=== PATIENT | female | born 1950 | race Caucasian/White ===

== ENCOUNTER 2018-02-24 19:14 | Emergency (ER) | payer MEDICARE, BC ==
[2018-02-24 19:25] VITALS: BP 145/70
[2018-02-24] MEDS ORDERED: Sodium Chloride 0.9% 10 ML Syringe FLUSH PRN (19:46)
[2018-02-24] MEDS ORDERED: Morphine 4 MG/ML Syringe IVPUSH ONE (19:47)
--- NOTE | 2018-02-24 19:53 | EDM.PDOC ---
ED HPI GENERAL MEDICAL PROBLEM - General Chief Complaint: Genitourinary Problem Stated Complaint: BLOOD IN URINE Time Seen by Provider: 02/24/18 19:15 Source of Information: Reports: Patient History Limitations: Reports: No Limitations - History of Present Illness INITIAL COMMENTS - FREE TEXT/NARRATIVE: Patient is a 68-year-old female presents to emergency department with gross hematuria and clots. Patient states that over the years she had been diagnosed with bladder cancer and has had 2 bladder scrapings which revealed noninvasive bladder CA. She had another scraping which revealed invasive bladder CA. She has been asymptomatic until today suddenly she began to have severe pain with urination it was bloody and passing large clots she said the size of her thumb. She is having a lot of bladder spasms as well. No fevers chills nausea vomiting diarrhea chest pain shortness of breath no blood from the vagina and no bloody stools. Patient denies being on any type of anticoagulants no aspirin or Plavix to Coumadin. She states she has been taken off all of those types of meds secondary to having a biopsy scheduled for next week. Onset: Sudden Duration: Day(s): (1) Location: Reports: Abdomen Quality: Reports: Other (spasm) Severity: Severe Improves with: Reports: None Worsens with: Reports: Other (urination) Associated Symptoms: Reports: No Other Symptoms urinary/inner pelvic Pain Score (Numeric/FACES): 6 - Related Data Allergies Allergy/AdvReac Type Severity Reaction Status Date / Time No Known Allergies Allergy Verified 02/24/18 19:25 Home Meds: Home Meds Biotin 1 mg PO DAILY 12/11/15 [History] Cholecalciferol (Vitamin D3) [Vitamin D] 1,000 unit PO DAILY 12/11/15 [History] Lutein/Minerals/Vit A,C & E [Ocuvite] 1 tab PO DAILY 12/11/15 [History] Multivitamins [Tab-A-Nickie] 1 tab PO DAILY 12/11/15 [History] Anastrozole [Arimidex] 1 mg PO DAILY 02/24/18 [History] Ciprofloxacin HCl [Cipro] 500 mg PO Q12HR #20 tablet 02/24/18 [Rx] oxyCODONE HCl/Acetaminophen [Percocet 7.5-325 mg Tablet] 1 each PO Q6HR #12 tablet 02/25/18 [Rx] Past Medical History HEENT History: Reports: Impaired Vision 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 History: Reports: Endometriosis Oncologic (Cancer) History: Reports: Bladder - Past Surgical History Female Surgical History: Reports: Breast Implant, Section, Hysterectomy, Other (See Below) Other Female Surgeries/Procedures: bladder surgery for Neurological Surgical History: Reports: Discectomy Musculoskeletal Surgical History: Reports: Knee Replacement Social & Family History - Tobacco Use Smoking Status *Q: Never Smoker - Caffeine Use Caffeine Use: Reports: Coffee - Recreational Drug Use Recreational Drug Use: No ED ROS GENERAL - Review of Systems Review Of Systems: See Below Constitutional: Reports: No Symptoms HEENT: Reports: No Symptoms Respiratory: Reports: No Symptoms Cardiovascular: Reports: No Symptoms Endocrine: Reports: No Symptoms GI/Abdominal: Reports: Abdominal Pain, Distension. Denies: Black Stool, Bloody Stool, Constipation, Diarrhea, Hematemesis, Hematochezia, Melena, Nausea, Vomiting : Reports: Dysuria, Frequency, Hematuria, Pain, Urgency, Urinary Retention Musculoskeletal: Reports: No Symptoms Skin: Reports: No Symptoms Neurological: Reports: Syncope Psychiatric: Reports: No Symptoms Hematologic/Lymphatic: Reports: No Symptoms Immunologic: Reports: No Symptoms ED EXAM, RENAL/ - Physical Exam Exam: See Below Exam Limited By: No Limitations General Appearance: Alert, WD/WN, Anxious, Moderate Distress Course - Vital Signs Last Recorded V/S: Last Vital Signs Temp 98.2 F 02/24/18 19:18 Pulse 75 02/24/18 19:18 Resp 18 02/24/18 19:18 BP 145/70 H 02/24/18 19:18 Pulse Ox 98 02/24/18 19:18 - Orders/Labs/Meds Orders: Active Orders 24 hr Category Date Time Status Abdomen Pelvis wo Cont [CT] Stat Exams 02/24/18 22:37 Taken Retroperitoneal Comp [US] Stat Exams 02/24/18 19:45 Taken Sodium Chloride 0.9% [Saline Flush] Med 02/24/18 19:46 Active 10 ml FLUSH ASDIRECTED PRN Saline Lock Insert [OM.PC] Routine Oth 02/24/18 19:46 Ordered Medication Orders Sodium Chloride (Saline Flush) 10 ml FLUSH ASDIRECTED PRN PRN Reason: Keep Vein Open Last Admin: 02/24/18 20:12 Dose: 10 ml Labs: Laboratory Tests 02/24/18 02/24/18 02/24/18 Range/Units 19:50 19:56 19:56 WBC 9.62 (3.98-10.04) K/mm3 RBC 3.26 L (3.98-5.22) M/mm3 Hgb 10.0 L (11.2-15.7) gm/L Hct 30.2 L (34.1-44.9) % MCV 92.6 (79.4-94.8) fl MCH 30.7 (25.6-32.2) pg MCHC 33.1 (32.2-35.5) g/dl RDW Std Deviation 44.5 (36.4-46.3) fL Plt Count 333 (182-369) K/mm3 MPV 10.4 (9.4-12.3) fl Neut % (Auto) 72.1 H (34.0-71.1) % Lymph % (Auto) 17.7 L (19.3-51.7) % Drew % (Auto) 8.7 (4.7-12.5) % Eos % (Auto) 1.0 (0.7-5.8) Baso % (Auto) 0.2 (0.1-1.2) % Neut # (Auto) 6.93 H (1.56-6.13) K/mm3 Lymph # (Auto) 1.70 (1.18-3.74) K/mm3 Drew # (Auto) 0.84 H (0.24-0.36) K/mm3 Eos # (Auto) 0.10 (0.04-0.36) K/mm3 Baso # (Auto) 0.02 (0.01-0.08) K/mm3 PT 10.5 (9.5-12.1) SECONDS INR 0.96 Sodium 137 (136-145) mEq/L Potassium 3.8 (3.5-5.1) mEq/L Chloride 102 (98-107) mEq/L Carbon Dioxide 25 (21-32) mEq/L Anion Gap 13.8 (5-15) BUN 15 (7-18) mg/dL Creatinine 0.9 (0.55-1.02) mg/dL Est Cr Clr Drug Dosing 44.17 mL/min Estimated GFR (MDRD) > 60 (>60) mL/min BUN/Creatinine Ratio 16.7 (14-18) Glucose 105 (80-115) mg/dL Calcium 8.2 L (8.5-10.1) mg/dL Total Bilirubin 0.3 (0.2-1.0) mg/dL AST 19 (15-37) U/L ALT 24 (14-59) U/L Alkaline Phosphatase 34 L (46-116) U/L Total Protein 7.1 (6.4-8.2) g/dl Albumin 3.6 (3.4-5.0) g/dl Globulin 3.5 gm/dL Albumin/Globulin Ratio 1.0 (1-2) Urine Color (Yellow) Urine Appearance (Clear) Urine pH (5.0-8.0) Ur Specific Froid (1.005-1.030) Urine Protein (Negative) Urine Glucose (UA) (Negative) Urine Ketones (Negative) Urine Occult Blood (Negative) Urine Nitrite (Negative) Urine Bilirubin (Negative) Urine Urobilinogen (0.2-1.0) Ur Leukocyte Esterase (Negative) Urine RBC (0-5) /hpf Urine WBC (0-5) /hpf Ur Epithelial Cells (0-5) /hpf Amorphous Sediment (NOT SEEN) /hpf Urine Bacteria (FEW) /hpf Urine Mucus (FEW) /hpf / Range/Units 20:18 WBC (3.98-10.04) K/mm3 RBC (3.98-5.22) M/mm3 Hgb (11.2-15.7) gm/L Hct (34.1-44.9) % MCV (79.4-94.8) fl MCH (25.6-32.2) pg MCHC (32.2-35.5) g/dl RDW Std Deviation (36.4-46.3) fL Plt Count (182-369) K/mm3 MPV (9.4-12.3) fl Neut % (Auto) (34.0-71.1) % Lymph % (Auto) (19.3-51.7) % Drew % (Auto) (4.7-12.5) % Eos % (Auto) (0.7-5.8) Baso % (Auto) (0.1-1.2) % Neut # (Auto) (1.56-6.13) K/mm3 Lymph # (Auto) (1.18-3.74) K/mm3 Drew # (Auto) (0.24-0.36) K/mm3 Eos # (Auto) (0.04-0.36) K/mm3 Baso # (Auto) (0.01-0.08) K/mm3 PT (9.5-12.1) SECONDS INR Sodium (136-145) mEq/L Potassium (3.5-5.1) mEq/L Chloride (98-107) mEq/L Carbon Dioxide (21-32) mEq/L Anion Gap (5-15) BUN (7-18) mg/dL Creatinine (0.55-1.02) mg/dL Est Cr Clr Drug Dosing mL/min Estimated GFR (MDRD) (>60) mL/min BUN/Creatinine Ratio (14-18) Glucose (80-115) mg/dL Calcium (8.5-10.1) mg/dL Total Bilirubin (0.2-1.0) mg/dL AST (15-37) U/L ALT (14-59) U/L Alkaline Phosphatase (46-116) U/L Total Protein (6.4-8.2) g/dl Albumin (3.4-5.0) g/dl Globulin gm/dL Albumin/Globulin Ratio (1-2) Urine Color Red H (Yellow) Urine Appearance Cloudy H (Clear) Urine pH 6.0 (5.0-8.0) Ur Specific Froid 1.015 (1.005-1.030) Urine Protein 3+ H (Negative) Urine Glucose (UA) Negative (Negative) Urine Ketones 1+ H (Negative) Urine Occult Blood 3+ H (Negative) Urine Nitrite Positive H (Negative) Urine Bilirubin 3+ H (Negative) Urine Urobilinogen 1.0 (0.2-1.0) Ur Leukocyte Esterase 3+ H (Negative) Urine RBC >100 H (0-5) /hpf Urine WBC >100 H (0-5) /hpf Ur Epithelial Cells 10-20 H (0-5) /hpf Amorphous Sediment Few H (NOT SEEN) /hpf Urine Bacteria Many H (FEW) /hpf Urine Mucus Few (FEW) /hpf Meds: Medications Generic Name Dose Route Start Last Admin Trade Name Freq PRN Reason Stop Dose Admin Sodium Chloride 10 ml 02/24/18 19:46 02/24/18 20:12 Saline Flush FLUSH 10 ml ASDIRECTED PRN Administration Keep Vein Open Discontinued Medications Generic Name Dose Route Start Last Admin Trade Name Ira PRN Reason Stop Dose Admin Hydromorphone HCl 1 mg 02/24/18 20:07 02/24/18 20:11 Dilaudid IVPUSH 02/24/18 20:08 1 mg ONETIME ONE Administration Hydromorphone HCl 0.5 mg 02/24/18 22:55 02/24/18 23:02 Dilaudid IVPUSH 02/24/18 22:56 0.5 mg ONETIME ONE Administration Hydromorphone HCl 0.5 mg 02/24/18 23:17 02/24/18 23:20 Dilaudid IVPUSH 02/24/18 23:18 0.5 mg ONETIME ONE Administration Ceftriaxone Sodium 1 gm/ 100 mls @ 200 mls/hr 02/24/18 21:06 02/24/18 21:30 Sodium Chloride IV 02/24/18 21:35 Not Given ONETIME ONE Ceftriaxone Sodium 1 gm/ 100 mls @ 200 mls/hr 02/24/18 21:22 02/24/18 21:27 Sodium Chloride IV 02/24/18 21:51 200 mls/hr ONETIME ONE Administration Sodium Chloride 1,000 mls @ 1,000 mls/hr 02/24/18 22:54 02/24/18 23:01 Normal Saline IV 02/24/18 23:53 1,000 mls/hr ONETIME ONE Administration Morphine Sulfate 4 mg 02/24/18 19:47 02/24/18 20:07 Morphine IVPUSH 02/24/18 19:48 Not Given ONETIME ONE - Re-Assessments/Exams Free Text/Narrative Re-Assessment/Exam: 02/24/18 23:17 At 28/08/15 I discussed the care of this patient in great detail with Dr. Billy Hicks who was covering for Dr. Posada, urological specialist in [place]. We discussed laboratory studies and ultrasound. Dr. Mccarty was in agreement with the current treatment plan of antibiotics and fluids. He requests that the patient call the office and speak with Dr. the RN and she will arrange for the patient to have expedited follow-up in the office. As will not be in the office tomorrow but he will return next week. The radiologist , called from the red to discuss this patient's ultrasound results. She verified that on the anterior bladder wall there appeared to be a collection of tissue that could represent a mass. Debris in the posterior bladder suggesting hemorrhage. Small postvoid residual in the bladder. While in the stones were identified in this ultrasound she suggested a CAT scan to further evaluate that type of finding. In my discussions with the patient regarding her hematuria and treating her with the cold water irrigation of the bladder via a catheter patient refused. We have discussed it multiple times and she states she cannot tolerate having a catheter placed in her bladder. I also discussed that with Dr. Billy Mccarty the urologist so they are aware. Currently the patient's hemoglobin is 10 and her platelets, and coagulation studies are within normal limits. [id number] we are waiting patient's CTT scan. Departure - Departure Time of Disposition: 00:22 Disposition: Home, Self-Care 01 Condition: Good Clinical Impression: UTI, Urinary tract infectious disease, Hematuria syndrome - Discharge Information *PRESCRIPTION DRUG MONITORING PROGRAM REVIEWED*: Not Applicable *COPY OF PRESCRIPTION DRUG MONITORING REPORT IN PATIENT TARA: Not Applicable Prescriptions: Ciprofloxacin HCl [Cipro] 500 mg PO Q12HR #20 tablet Instructions: Urinary Tract Infection, Adult, [id number], Hematuria, Adult Referrals: PCP,Not In Area [Primary Care Provider] - 1 Day (Call Loretta COLLINS,at Dr. Posada' s office, tomorrow for follow up. ) Forms: ED Department Discharge Additional Instructions: Call Dr. Posada's office tomorrow and speak with Loretta for follow up appt. Drink as much fluid as you can tolerate, in order to help flush out the bladder and keep clots from enlarging; Take antibiotics as prescribed, Cipro. Take pain meds as needed. - My Orders Last 24 Hours: My Active Orders 02/24/18 19:45 Retroperitoneal Comp [US] Stat 02/24/18 19:46 Sodium Chloride 0.9% [Saline Flush] 10 ml FLUSH ASDIRECTED PRN Saline Lock Insert [OM.PC] Routine 02/24/18 22:37 Abdomen Pelvis wo Cont [CT] Stat - Assessment/Plan Last 24 Hours: My Active Orders 02/24/18 19:45 Retroperitoneal Comp [US] Stat 02/24/18 19:46 Sodium Chloride 0.9% [Saline Flush] 10 ml FLUSH ASDIRECTED PRN Saline Lock Insert [OM.PC] Routine 02/24/18 22:37 Abdomen Pelvis wo Cont [CT] Stat
[2018-02-24] MEDS ORDERED: HYDROmorphone 0.5 MG/0.5 ML SYRINGE IVPUSH ONE ×3 (20:07→23:17)
[2018-02-24] MEDS ORDERED: cefTRIAXone 1 GM in Sodium Chloride 0.9% 100 ML IV ONE ×2 (21:06→21:22)
[2018-02-24] MEDS ORDERED: Sodium Chloride 0.9% 1,000 ML IV ONE (22:54)
[2018-02-24] MEDS ORDERED: Aspirin 81 MG Tab.Chew PO ONE (22:57)
[2018-02-24] MEDS ORDERED: Nitroglycerin 0.4 MG Tab.SL SL PRN (22:58)
--- NOTE | 2018-02-25 09:59 | US ---
Renal ultrasound: Multiple real-time images of the kidneys were obtained. Comparison: No prior renal ultrasound exam. Findings: Bladder appears abnormal. Hypoechoic area identified within the anterior bladder measuring about 3.1 cm. This could represent a bladder mass. There is material within the bladder lumen suggesting the possibility of blood clot. Kidneys show no hydronephrosis or mass. Right and left kidneys show mildly elevated resistivity indices. Right kidney length is 10.4 cm and left kidney length is also 10.4 cm. Prevoid volume within the bladder is 261 mL and postvoid volume is 11.0 mL. Impression: 1. Small bladder mass anteriorly. Cystoscopy recommended as transitional cell carcinoma is a possibility. 2. Debris within the bladder most likely due to blood clot. 3. Small post void residual within the bladder. 4. Mildly elevated resistivity indices within both kidneys compatible with an element of medical renal disease. Diagnostic code #9 I agree with preliminary report issued by [facility] ([facility] report finalized on 02/24/18, 11:37 PM Central Time)
--- NOTE | 2018-02-25 09:59 | CT ---
CT abdomen and pelvis Technique: Multiple axial sections were obtained from above the dome of the diaphragm inferiorly to the pubic symphysis. Intravenous and oral contrast was not utilized. Study has been performed as a ureteral stone protocol. Comparison: Previous CT abdomen and pelvis exam exam of 07/07/17. Findings: Retroperitoneal adenopathy is seen mostly to the left side of the aorta. Adenopathy continues into the iliac chain. Bladder wall is thickened anteriorly felt to correlate to the mass seen on ultrasound exam. There is hazy density outside the anterior bladder wall may represent local invasion of tumor. Visualized lung bases show nothing acute. Small hiatal hernia is noted. Liver has an unremarkable noncontrast appearance. Gallbladder contains no calcified gallstones. Pancreas is within normal limits. Kidneys show no abnormal calcifications. No ureteral dilatation or ureteral stone is seen. Aorta shows no aneurysmal dilatation. Appendix not visualized with certainty. Bone window settings were reviewed which show scattered degenerative change within the spine. Impression: 1. Bladder wall thickening most prominent anteriorly correlating to mass on ultrasound. Findings are suspicious for transitional cell carcinoma. Slight haziness along the anterior bladder wall is seen possibly due to local invasion of tumor. Differential also includes prominent cystitis. Cystoscopy recommended to further evaluate. 2. Adenopathy within the retroperitoneum extending into the left iliac chain suspicious for metastatic disease. This is an interval change from previous exam. 3. Other incidental findings as noted above. Diagnostic code #9 I agree with preliminary report issued by [facility] ([facility] report finalized on 02/25/18, 1:01 AM Central Time)
== END 2018-02-25 00:45 | disposition home or self-care (01) ==
LOC: JD.ED 19:14
DX: N39.0 Urinary tract infection, site not specified (principal); Z79.899 Other long term (current) drug therapy
CPT/HCPCS: 36415; 74176; 76770; 80053; 81001; 85025; 85610; 96361; 96365; 96375; 96376; 99284; J0696; J1170; J7030; J7040; J7050

== ENCOUNTER 2020-06-07 15:56 | Inpatient (IN) | payer MEDICARE, BC ==
--- NOTE | 2020-06-07 16:58 | EDM.PDOC ---
ED HPI GENERAL MEDICAL PROBLEM - General Chief Complaint: General Stated Complaint: PAIN FROM CANCER Time Seen by Provider: 06/07/20 16:57 Source of Information: Reports: Patient History Limitations: Reports: No Limitations - History of Present Illness INITIAL COMMENTS - FREE TEXT/NARRATIVE: 70-year-old female presents to the ED with diffuse severe lower abdominal pain. Patient was at the infusion clinic at [facility] today and did receive IV fluids through her Port-A-Cath left upper anterior chest. Is felt to be dehydrated clinically. She arrives in the ED with her Port-A-Cath still accessed. She had 2 mg of Dilaudid orally this afternoon and did receive another 0.5 mg IV prior to coming to the ED. She is also on a fentanyl patch 12 mcg/h and currently has 2 patches on. Early 1 was placed yesterday and a second 1 was placed today. Prior to her gallbladder surgery she was on 25 mcg/day. Patient has a history of urinary bladder cancer. This was initially diagnosed in 2016 and treated with 2 courses of 6 weeks each of BCG intravesical treatments. Subsequently identified to have carcinoma extruding through the bladder wall and offered treatment of totals cystectomy and ileoconduit formation with ureterostomy but she elected not to proceed with the surgery. She has been receiving chemotherapy through oncology services for her bladder cancer. It of course has been stopped recently in the month of May due to need for surgery and now discovery of malignant tumor within the bladder. She was recently diagnosed with colon cancer--sounds like malignant polyp excision at time of colonoscopy May 11, 2020. She is also had laparoscopic cholecystectomy 2019- 7 days ago. All of the surgeries were carried out in [place] at [facility]. She admits that her bowel movement has been very poor and she thinks has been at least 3 days since she has had a satisfactory bowel movement. She believes she is still passing flatus. She does feel mildly distended. Pain is constant but does have a strong colicky component radiating from right to left across the lower abdomen. Associated nausea without vomiting. Very poor oral intake over the last 3 days. Feels generally weak. Not lightheaded or dizzy. Onset: Today Onset Date: 06/07/20 Duration: Hour(s):, Getting Worse Location: Reports: Abdomen (He was constant lower abdominal pain rating from right to left across the lower abdomen with a strong colicky component. Pain is constant and rated as 7-8 out of 10. Currently unrelieved by fentanyl patches 12 mcg x 2 --unclear when the last one was placed. Diffuse primarily lower abdominal pain radiating right to left.) Quality: Reports: Other Severity: Severe (Is a constant pain in her abdomen and intermittently worse due to intestinal colic) Improves with: Reports: None ( rates as 8-9 out of 10.) Worsens with: Reports: None Context: Denies: Activity, Exercise, Lifting, Sick Contact, Trauma, Other Associated Symptoms: Reports: Cough, cough w sputum, Loss of Appetite, Malaise, Nausea/Vomiting, Shortness of Breath, Weakness (Nausea without vomiting), Other (Constipation. ). 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 (see below) (And apparently had oral Dilaudid 2 mg tablet given sometime this afternoon and I believe 0.5 mg IV prior to coming to the ED from the infusion clinic.) Middle Abdomen Pain Score (Numeric/FACES): 10 - Related Data Allergies Allergy/AdvReac Type Severity Reaction Status Date / Time morphine Allergy Other Verified 06/07/20 16:38 oxycodone Allergy Vomiting Verified 06/07/20 16:38 tramadol Allergy Cannot Verified 06/07/20 16:38 Remember Home Meds: Home Meds Anastrozole [Arimidex] 1 mg PO DAILY 02/24/18 [History] Apixaban [Eliquis] 5 mg PO BID 06/07/20 [History] Cyclobenzaprine [Flexeril] 10 mg PO TID PRN 06/07/20 [History] HYDROmorphone [Dilaudid] 2 mg PO Q6H PRN 06/07/20 [History] Hydrocodone/Acetaminophen [Hydrocodone-Acetamin 5-325 mg] 2 each PO Q4HR PRN 06/07/20 [History] Losartan [Cozaar] 50 mg PO DAILY 06/07/20 [History] Omeprazole 20 mg PO DAILY 06/07/20 [History] Sucralfate 1 gm PO QID 06/07/20 [History] fentaNYL [Duragesic] 12 mcg TD Q72H 06/07/20 [History] Past Medical History HEENT History: Reports: Impaired Vision 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 Identified to have initially left-sided bladder involvement and then completed 6 weeks of BCG treatment and repeat cystoscopy revealed that the development of bladder cancer on the right side and received another 6 weeks of BCG treatment intravascularly. Subsequently notified to have bladder wall invasion and extrusion of tumor outside the bladder wall. She elected not to undergo complete cystectomy and ileal conduit formation.), Breast (Right breast cancer diagnosed in 2015. She is currently into her fourth year of Arimidex treatment. It is proposed to continue this medication until November 2020. Lymph node biopsy done on the right side was negative making her a stage 1 cancer.), Colon - Past Surgical History Female Surgical History: Reports: Breast Implant, Section, Hysterectomy Neurological Surgical History: Reports: Discectomy Musculoskeletal Surgical History: Reports: Knee Replacement Social & Family History - Tobacco Use Tobacco Use Status *Q: Never Tobacco User - Caffeine Use Caffeine Use: Reports: Coffee - Living Situation & Occupation Living situation: Reports: Occupation: Retired [employer] [facility] - Review of Systems Review Of Systems: See Below Constitutional: Reports: Malaise, Weakness, Fatigue, Decreased Appetite, Weight Loss. Denies: Fever, Chills HEENT: Reports: Glasses Respiratory: Reports: Shortness of Breath, Cough. Denies: Wheezing, Sputum, Hemoptysis, Other Cardiovascular: Reports: Blood Pressure Problem, Dyspnea on Exertion, Edema (Occasional edema at the ankles better lately.). 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 She had laparoscopic cholecystectomy May 31 ice 7 days ago.). Denies: Difficulty Swallowing (History of present illness.), Distension, Flatus, Hematemesis, Hematochezia, Melena, Mucous in Stool, Stool Incontinence : Reports: Frequency, Other (Patient states she no longer gets the urge to void. She has to sit on the toilet and wait for the bladder to start to drain on its own. She reports bladder flow is slow. This is since BCG treatments were done intravascularly for transitional cell carcinoma of the bladder.) Musculoskeletal: Reports: Back Pain (Low back pain due to degenerative change) Skin: Reports: Dryness Neurological: Reports: Weakness. Denies: Confusion, Dizziness, Headache, Numbn ess, Syncope, Tingling, Difficulty Walking Psychiatric: Reports: No Symptoms Hematologic/Lymphatic: Reports: No Symptoms Immunologic: Reports: No Symptoms ED EXAM, GENERAL - Physical Exam Exam: See Below Exam Limited By: No Limitations General Appearance: Alert, WD/WN, Moderate Distress, Other (And is in significant discomfort at the time of my initial assessment. Temperature was 36.5 heart rate was 86 respiratory 20-24 with O2 sats of 99% room air BP elevated 190/86.) Eye Exam: Bilateral Eye: Normal Inspection (She does have mild lateral pallor), PERRL ( bilaterally. No scleral icterus.) Throat/Mouth: Other Head: Atraumatic (Is moderately dry and coated.), Normocephalic Neck: Normal Inspection, Supple, Non-Tender, Full Range of Motion. No: Lymphadenopathy (L), Lymphadenopathy (R) Respiratory/Chest: Respiratory Distress (Tachypnea at rest with maintained O2 sats.), Decreased Breath Sounds, Wheezing (Splinting respirations unable to take a deep breath. Decreased air into the lower 40% lung baca bilaterally.). No: Stridor, Pleural Rub ( Occasional expiratory wheeze.), Accessory Muscle Use Cardiovascular: Regular Rate, Rhythm, No Edema, No Gallop, No Murmur, No Rub Peripheral Pulses: 2+: Carotid (L), Carotid (R), Posterior Tibial (L), Posterior Tibial (R), Dorsalis Pedis (L), Dorsalis Pedis (R) GI/Abdominal: Non-Tender, No Organomegaly, Distended ( throughout all 4 quadrants. Abdomen is mildly distended and diffusely tympany to percussion.), Tender (Is mostly across the lower abdomen worse I believe on the left lower quadrant.), Abnormal Bowel Sounds (Sounds are fairly high-pitched), Other (There is no localized abdominal tenderness to suggest peritonitis at this time.). No: Guarding, Rigid, Rebound Back Exam: Normal Inspection, Full Range of Motion. No: CVA Tenderness (R) Extremities: Normal Inspection, Normal Range of Motion, Non-Tender, No Pedal Edema Neurological: Alert, Oriented, CN II-XII Intact, Normal Cognition Psychiatric: Normal Affect, Normal Mood Skin Exam: Warm, Dry, Intact, Normal Color, No Rash Course - Vital Signs Last Recorded V/S: Last Vital Signs Temp 36.5 C 06/07/20 16:21 Pulse 86 06/07/20 16:21 Resp 20 06/07/20 16:21 BP 190/86 H 06/07/20 16:21 Pulse Ox 99 06/07/20 16:21 - Orders/Labs/Meds Orders: Active Orders 24 hr Category Date Time Status Admission Status [Patient Status] [ADT] Routine ADT 06/07/20 20:16 Active Abdomen 1V Flat [CR] Stat Exams 06/07/20 17:07 Taken Abdomen Pelvis w Cont [CT] Stat Exams 06/07/20 18:24 Taken Chest 1V Frontal [CR] Stat Exams 06/07/20 17:07 Taken Dextrose 5%-Lactated Ringers 1,000 ml Med 06/07/20 20:15 Active IV ASDIRECTED fentaNYL [Duragesic] Med 06/07/20 19:45 Active 25 mcg TRDERM Q72H Medication Orders Fentanyl (Duragesic) 25 mcg TRDERM Q72H JEMMA Last Admin: 06/07/20 20:00 Dose: 25 mcg Documented by: HERMMIC Dextrose/Lactated Ringer's (Dextrose 5%-Lactated Ringers) 1,000 mls @ 100 mls/hr IV ASDIRECTED [facility] Labs: Laboratory Tests 06/07/20 06/07/20 06/07/20 Range/Units 17:25 17:25 17:25 WBC 7.80 (3.98-10.04) K/mm3 RBC 3.22 L (3.98-5.22) M/mm3 Hgb 9.6 L (11.2-15.7) gm/dl Hct 29.4 L (34.1-44.9) % MCV 91.3 (79.4-94.8) fl MCH 29.8 (25.6-32.2) pg MCHC 32.7 (32.2-35.5) g/dl RDW Std Deviation 51.9 H (36.4-46.3) fL Plt Count 494 H D (182-369) K/mm3 MPV 9.8 (9.4-12.3) fl Neutrophils % (Manual) 85 H (40-60) % Band Neutrophils % 0 (0-10) % Lymphocytes % (Manual) 8 L (20-40) % Atypical Lymphs % 0 % Monocytes % (Manual) 7 (2-10) % Eosinophils % (Manual) 0 L (0.7-5.8) % Basophils % (Manual) 0 L (0.1-1.2) Platelet Estimate Increased Plt Morphology Comment Normal Hypochromasia 1+ slight RBC Morph Comment Abnormal ESR 37 H (0-20) mm/hr PT (9.7-12.0) SECONDS INR APTT (21.7-31.4) SECONDS Sodium 134 L (136-145) mEq/L Potassium 3.4 L (3.5-5.1) mEq/L Chloride 97 L (98-107) mEq/L Carbon Dioxide 26 (21-32) mEq/L Anion Gap 14.4 (5-15) BUN 9 (7-18) mg/dL Creatinine 0.9 (0.55-1.02) mg/dL Est Cr Clr Drug Dosing 45.14 mL/min Estimated GFR (MDRD) > 60 (>60) mL/min BUN/Creatinine Ratio 10.0 L (14-18) Glucose 112 (80-115) mg/dL Calcium 8.5 (8.5-10.1) mg/dL Magnesium 2.0 (1.8-2.4) mg/dl Total Bilirubin 0.5 (0.2-1.0) mg/dL GGT (5-55) U/L AST 23 (15-37) U/L ALT 24 (14-59) U/L Alkaline Phosphatase 145 H (46-116) U/L C-Reactive Protein 2.0 H* (<1.0) mg/dL NT-Pro-B Natriuret Pep (0-125) pg/mL Total Protein 6.5 (6.4-8.2) g/dl Albumin 2.6 L (3.4-5.0) g/dl Globulin 3.9 gm/dL Albumin/Globulin Ratio 0.7 L (1-2) Lipase (73-393) U/L Urine Color (Yellow) Urine Appearance (Clear) Urine pH (5.0-8.0) Ur Specific Lincoln (1.005-1.030) Urine Protein (Negative) Urine Glucose (UA) (Negative) Urine Ketones (Negative) Urine Occult Blood (Negative) Urine Nitrite (Negative) Urine Bilirubin (Negative) Urine Urobilinogen (0.2-1.0) Ur Leukocyte Esterase (Negative) Urine RBC (0-5) /hpf Urine WBC (0-5) /hpf Ur Squamous Epith Cells (0-5) /hpf Urine Bacteria (FEW) /hpf Urine Mucus (FEW) /hpf SARS-CoV-2 RNA (CHOCO) (NEGATIVE) 06/07/20 06/07/20 06/07/20 Range/Units 17:25 17:25 17:25 WBC (3.98-10.04) K/mm3 RBC (3.98-5.22) M/mm3 Hgb (11.2-15.7) gm/dl Hct (34.1-44.9) % MCV (79.4-94.8) fl MCH (25.6-32.2) pg MCHC (32.2-35.5) g/dl RDW Std Deviation (36.4-46.3) fL Plt Count (182-369) K/mm3 MPV (9.4-12.3) fl Neutrophils % (Manual) (40-60) % Band Neutrophils % (0-10) % Lymphocytes % (Manual) (20-40) % Atypical Lymphs % % Monocytes % (Manual) (2-10) % Eosinophils % (Manual) (0.7-5.8) % Basophils % (Manual) (0.1-1.2) Platelet Estimate Plt Morphology Comment Hypochromasia RBC Morph Comment ESR (0-20) mm/hr PT 12.2 H (9.7-12.0) SECONDS INR 1.14 APTT 37.7 H (21.7-31.4) SECONDS Sodium (136-145) mEq/L Potassium (3.5-5.1) mEq/L Chloride (98-107) mEq/L Carbon Dioxide (21-32) mEq/L Anion Gap (5-15) BUN (7-18) mg/dL Creatinine (0.55-1.02) mg/dL Est Cr Clr Drug Dosing mL/min Estimated GFR (MDRD) (>60) mL/min BUN/Creatinine Ratio (14-18) Glucose (80-115) mg/dL Calcium (8.5-10.1) mg/dL Magnesium (1.8-2.4) mg/dl Total Bilirubin (0.2-1.0) mg/dL GGT 150 H (5-55) U/L AST (15-37) U/L ALT (14-59) U/L Alkaline Phosphatase (46-116) U/L C-Reactive Protein (<1.0) mg/dL NT-Pro-B Natriuret Pep 808 H (0-125) pg/mL Total Protein (6.4-8.2) g/dl Albumin (3.4-5.0) g/dl Globulin gm/dL Albumin/Globulin Ratio (1-2) Lipase (73-393) U/L Urine Color (Yellow) Urine Appearance (Clear) Urine pH (5.0-8.0) Ur Specific [place] (1.005-1.030) Urine Protein (Negative) Urine Glucose (UA) (Negative) Urine Ketones (Negative) Urine Occult Blood (Negative) Urine Nitrite (Negative) Urine Bilirubin (Negative) Urine Urobilinogen (0.2-1.0) Ur Leukocyte Esterase (Negative) Urine RBC (0-5) /hpf Urine WBC (0-5) /hpf Ur Squamous Epith Cells (0-5) /hpf Urine Bacteria (FEW) /hpf Urine Mucus (FEW) /hpf SARS-CoV-2 RNA (CHOCO) (NEGATIVE) 06/07/20 06/07/20 06/07/20 Range/Units 17:25 17:27 17:30 WBC (3.98-10.04) K/mm3 RBC (3.98-5.22) M/mm3 Hgb (11.2-15.7) gm/dl Hct (34.1-44.9) % MCV (79.4-94.8) fl MCH (25.6-32.2) pg MCHC (32.2-35.5) g/dl RDW Std Deviation (36.4-46.3) fL Plt Count (182-369) K/mm3 MPV (9.4-12.3) fl Neutrophils % (Manual) (40-60) % Band Neutrophils % (0-10) % Lymphocytes % (Manual) (20-40) % Atypical Lymphs % % Monocytes % (Manual) (2-10) % Eosinophils % (Manual) (0.7-5.8) % Basophils % (Manual) (0.1-1.2) Platelet Estimate Plt Morphology Comment Hypochromasia RBC Morph Comment ESR (0-20) mm/hr PT (9.7-12.0) SECONDS INR APTT (21.7-31.4) SECONDS Sodium (136-145) mEq/L Potassium (3.5-5.1) mEq/L Chloride (98-107) mEq/L Carbon Dioxide (21-32) mEq/L Anion Gap (5-15) BUN (7-18) mg/dL Creatinine (0.55-1.02) mg/dL Est Cr Clr Drug Dosing mL/min Estimated GFR (MDRD) (>60) mL/min BUN/Creatinine Ratio (14-18) Glucose (80-115) mg/dL Calcium (8.5-10.1) mg/dL Magnesium (1.8-2.4) mg/dl Total Bilirubin (0.2-1.0) mg/dL GGT (5-55) U/L AST (15-37) U/L ALT (14-59) U/L Alkaline Phosphatase (46-116) U/L C-Reactive Protein (<1.0) mg/dL NT-Pro-B Natriuret Pep (0-125) pg/mL Total Protein (6.4-8.2) g/dl Albumin (3.4-5.0) g/dl Globulin gm/dL Albumin/Globulin Ratio (1-2) Lipase 488 H (73-393) U/L Urine Color Light yellow (Yellow) Urine Appearance Clear (Clear) Urine pH 7.5 (5.0-8.0) Ur Specific Lincoln 1.020 (1.005-1.030) Urine Protein Negative (Negative) Urine Glucose (UA) Negative (Negative) Urine Ketones Trace H (Negative) Urine Occult Blood 3+ H (Negative) Urine Nitrite Negative (Negative) Urine Bilirubin Negative (Negative) Urine Urobilinogen 0.2 (0.2-1.0) Ur Leukocyte Esterase 2+ H (Negative) Urine RBC 10-20 H (0-5) /hpf Urine WBC 0-5 (0-5) /hpf Ur Squamous Epith Cells 0-5 (0-5) /hpf Urine Bacteria Few (FEW) /hpf Urine Mucus Not seen (FEW) /hpf SARS-CoV-2 RNA (CHOCO) Negative (NEGATIVE) Meds: Medications Generic Name Dose Route Start Last Admin Trade Name Freq PRN Reason Stop Dose Admin Fentanyl 25 mcg 06/07/20 19:45 06/07/20 20:00 Duragesic TRDERM 25 mcg Q72H JEMMA Administration Dextrose/Lactated Ringer's 1,000 mls @ 100 mls/hr 06/07/20 20:15 Dextrose 5%-Lactated Ringers IV ASDIRECTED JEMMA Discontinued Medications Generic Name Dose Route Start Last Admin Trade Name Freq PRN Reason Stop Dose Admin Hydromorphone HCl 1 mg 06/07/20 17:05 06/07/20 17:14 Dilaudid IVPUSH 06/07/20 17:06 1 mg ONETIME ONE Administration Hydromorphone HCl 1 mg 06/07/20 19:44 06/07/20 20:01 Dilaudid IVPUSH 06/07/20 19:45 1 mg ONETIME ONE Administration Dextrose/Lactated Ringer's 1,000 mls @ 150 mls/hr 06/07/20 17:15 06/07/20 17:14 Dextrose 5%-Lactated Ringers IV 150 mls/hr ASDIRECTED JEMMA Administration Iopamidol 100 ml 06/07/20 18:55 06/07/20 19:57 Isovue-300 (61%) IVPUSH 06/07/20 18:56 100 ml ONETIME ONE Administration Metoclopramide HCl 5 mg 06/07/20 17:05 06/07/20 17:14 Reglan IVPUSH 06/07/20 17:06 5 mg ONETIME ONE Administration Sodium Chloride 10 ml 06/07/20 18:55 06/07/20 19:57 Saline Flush FLUSH 06/07/20 18:56 10 ml ONETIME ONE Administration - Radiology Interpretation Free Text/Narrative:: C10-year-old female presents to the ED in severe pain across her lower abdomen. Patient was at the infusion clinic at [facility] this afternoon for IV fluids due to dehydration. Patient is now 7 days post laparoscopic cholecystectomy. She has a history of multiple cancers involving right breast in 2016 considered to be stage I with negative lymph node biopsy on the right axilla. Developed transitional cell carcinoma urinary bladder in 2017 and apparently has become very extensive recently with involvement of tumor outside the urinary bladder. Initially treated with BCG treatments x2 intravesically but identified to have extrusion of tumor outside the urinary bladder and opted not to pursue total cystectomy. She has a pigtail stent in her left ureter which is going to be changed yearly. This was placed she believes in February of this year. Most recently May 11 she had a colonoscopy which identified a malignant polyp within her left colon. She is expected to need require chemotherapy for this in the near future. She believes she has not had a decent bowel movement for at least 3 days. Her oral intake has been poor. No relief with oral Dilaudid tab. She is also on fentanyl patches 12 mcg/h and currently has [address] 1 placed yesterday and 1 this morning. Previous to her cholecystectomy she was on 25 mcg of fentanyl per hour with good pain control. When she will require intravenous fluids. We will access her left-sided Port-A-Cath. She will be given Dilaudid 1 mg IV and Reglan 5 mg IV for nausea relief. - Re-Assessments/Exams Free Text/Narrative Re-Assessment/Exam: 06/07/20 18:15 Hemoglobin white blood cell count is 7.80 differential pending. Hemoglobin is low at 9.6 with hematocrit of 29.4. Platelet count is elevated at 494,000. PT is 12.2 with an INR of 1.14 i.e. mildly auto anticoagulated. PTT is elevated at 37.7. This is concerning for possible liver involvement in her cancers. Sodium is 134 with a potassium of 3.4. Chloride 97 with a bicarb of 26. Anion gap is 14.4. BUN is 9 with a creatinine of 0.9 with a GFR greater than 60. Glucose is 112 calcium 8.5 magnesium 2.0. Total bilirubin 0.5. GGT is elevated at 150 AST is 23 with an ALT of 24 and a slightly elevated alk phosphatase at 145. Again these changes are worrisome for metastatic cancer to the liver. BNP is elevated at 808. Total protein 6.5 with an albumin fraction low at 2.6. Urinalysis returned as trace of ketones with 3+ occult blood and 2+ leukocyte Estrace with 10-20 RBCs per high-power field no white cells and few bacteria appreciated. Patient is much more comfortable at this time. She still has some diffuse lower abdominal pain but grades as is 1-2 out of 10. She is now able to carry on a conversation. She remains very thirsty. She is drinking water with no issues. She has burping and belching some when I am in the exam room. Chest x-ray reveals a left-sided Port-A-Cath in place. Atelectatic changes noted within both lung bases. Pleural space appears unremarkable with no pleural effusion or pneumothorax. There is mild bibasilar atelectasis. There is a mild nonspecific elevation of the left hemidiaphragm. Surgical clips appreciated right axilla--from previous lymph node biopsy which proved negative for right-sided breast cancer. The x-ray of the abdomen shows that there is still fluid within the pelvis. There is no significant constipation. Mild stool in the colon. There is increased air throughout the colon down to the rectal vault with no signs of obstruction. There are no air-fluid levels. There is phleboliths in the pelvis. The lumbar spine demonstrates mild to moderate degenerative changes at multiple levels. We will therefore go onto CT of the abdomen with IV contrast. 06/07/20 19:00: COVID-19 screen is negative. 06/07/20 19:48 She had the abdomen pelvis with IV contrast has been completed. Visualized portions of the lower thorax reveal cardiomegaly. No pleural effusion . She has a mild hiatal hernia. There is increased air in the colon under the left hemidiaphragm. CT of the abdomen reveals ascites fluid around the liver and spleen and also fluid throughout the lower abdomen. On firm discussion with the patient she indicates that she has had paracentesis in the past due to accumulation of large amount of fluid in her abdomen. She reports this was greater than 6 to 8 months ago. The liver appears to show evidence of fatty infiltration. [place] present from recent cholecystectomy. There appears to be some fluid around the pancreas. Definitive evidence of pancreatitis. Patient has a left pigtail stent in the left ureter. It enters the urinary bladder. There is evidence of tumor along the left side of the urinary bladder posterior laterally. The bladder is otherwise distended with no sign of perforation. There is a large amount of air distending the entire colon. There are few mildly dilated loops of distal small bowel without evidence of obstruction. No significant splenomegaly. There is thickening of the lara of the descending colon consistent with mild colitis evaluation of the bowel is limited due to lack of contrast. There is no evidence of appendicitis. There is a small amount of free intraperitoneal fluid present as mentioned above. Vasculature appears unremarkable with no abdominal aortic aneurysm. There is evidence of mesenteric lymphadenopathy measuring up to 1.3 cm. Mild retroperitoneal lymphadenopathy. The lumbar spine demonstrates mild degenerative changes at multiple levels. Soft tissue edematous changes noted bilaterally. Pain is coming back. She will have repeat Dilaudid 1 mg IV. She is going to require hospitalization by [facility] for pain management at this time. The exact cause of her current pain syndrome is unclear. I would suggest that she needs a stool collected for C. difficile as there is some evidence of inflammation of the left hemicolon. It is likely that she received postoperative antibiotic prior to her cholecystectomy a week ago. She gives no history of diarrhea in fact she has had little to no stool production for the last 3 days. I will discuss case with on-call hospitalist Dr. Coles with a view to her coming into the hospital. She previously was on fentanyl 25 mcg/h patches and her oncologist recently reduced him to 12 mcg/h. At this time the 12 mcg/h does not seem to be holding her. I am going to replace these 2 patches with a 25 mcg/h patch. Free Text/Narrative Re-Assessment/Exam: 06/07/20 20:03 I have spoken with Dr. Fay- air control electronics operator hospitalist with view to bring her into the hospital primarily for pain management. The cause of her recurrent lower abdominal pain is a bit unclear at this point time. It appears to be intestinal --colic-like pain. Is have mild ascites in the abdomen with evidence of mesenteric lymphadenopathy and retroperitoneal adenopathy on CT scan suggestive of diffuse malignancy likely from the urinary bladder. Mesenteric invasion with cancer could be the cause of her ascites as well. I am hopeful that she might be able to fall asleep for a period of time and help pass some of the gas out of her colon. The CT reveals thickening of portions of the descending colon but clinically she does not have signs or symptoms of a significant inflammatory process or colitis. She has no blood per rectum and is passing flatus. There is diffuse mild ascites in the abdomen. She has a pigtail stent in her left ureter. There is evidence of tumor along the left uri nary bladder wall without evidence of urinary bladder perforation. The bladder is distended fairly well on CT exam and the patient has voided 3 times since she has been here without any worsening or improvement of her lower abdominal pain. CT did not reveal any signs of a perforated viscus. There is mild amount of stool throughout the colon and the patient may benefit from bowel cleanse. I have changed her fentanyl to 25 mcg/h patches with removal of the 12 mcg/h patches that she has in place at the time she arrived in the ED. This is in the hopes of providing a steady state of fentanyl and control of her current pain syndrome. She likely require intermittent doses of Dilaudid for pain relief. Of note patient was at the infusion clinic receiving IV fluids prior to coming to the ED. Her BNP is mildly elevated at 880 and she is at risk of becoming volume overloaded. Current IV will be decreased to D5 Ringer's lactate at 100 mils per hour. Lipase is mildly elevated at 455? Mild pancreatitis. Post op cholecystectomy x 7 days. Departure - Departure Time of Disposition: 20:11 Disposition: Admitted As Inpatient 68 Condition: Poor Clinical Impression: Bilateral lower abdominal pain, Mesenteric lymphadenopathy, Mild congestive h eart failure Ascites Qualifiers: Ascites type: malignant Qualified Code(s): R18.0 - Malignant ascites Malignant neoplasm of urinary bladder Qualifiers: Bladder location: trigone Qualified Code(s): C67.0 - Malignant neoplasm of trigone of bladder - Discharge Information *PRESCRIPTION DRUG MONITORING PROGRAM REVIEWED*: Not Applicable *COPY OF PRESCRIPTION DRUG MONITORING REPORT IN PATIENT TARA: Not Applicable Referrals: Zac Villatoro MD [Primary Care Provider] - Forms: ED Department Discharge Sepsis Event Note (ED) - Evaluation Sepsis Screening Result: No Definite Risk - Focused Exam Vital Signs: Vital Signs Temp Pulse Resp BP Pulse Ox 06/07/20 16:21 36.5 C 86 20 190/86 H 99 - My Orders Last 24 Hours: My Active Orders 06/07/20 17:07 Abdomen 1V Flat [CR] Stat Chest 1V Frontal [CR] Stat 06/07/20 18:24 Abdomen Pelvis w Cont [CT] Stat 06/07/20 19:45 fentaNYL [Duragesic] 25 mcg TRDERM Q72H 06/07/20 20:15 Dextrose 5%-Lactated Ringers 1,000 ml IV ASDIRECTED 06/07/20 20:16 Admission Status [Patient Status] [ADT] Routine - Assessment/Plan Last 24 Hours: My Active Orders 06/07/20 17:07 Abdomen 1V Flat [CR] Stat Chest 1V Frontal [CR] Stat 06/07/20 18:24 Abdomen Pelvis w Cont [CT] Stat 06/07/20 19:45 fentaNYL [Duragesic] 25 mcg TRDERM Q72H 06/07/20 20:15 Dextrose 5%-Lactated Ringers 1,000 ml IV ASDIRECTED 06/07/20 20:16 Admission Status [Patient Status] [ADT] Routine
[2020-06-07] MEDS ORDERED: HYDROmorphone 1 MG/ML Syringe IVPUSH ONE ×2 (17:05→19:44)
[2020-06-07] MEDS ORDERED: Metoclopramide 10 MG/2 ML SDV IVPUSH ONE (17:05)
[2020-06-07] MEDS ORDERED: Dextrose 5%-Lactated Ringers 1,000 ML IV SCH (17:15)
[2020-06-07] MEDS ORDERED: Iopamidol 612 MG/ML 100 ML Bottle IVPUSH ONE (18:55)
[2020-06-07] MEDS ORDERED: Sodium Chloride 0.9% 10 ML Syringe FLUSH ONE (18:55)
[2020-06-07] MEDS ORDERED: fentaNYL 25 MCG/HR Transdermal Patch TRDERM SCH (19:45)
[2020-06-07] MEDS ORDERED: FLU Vacc QV2020-21(65YR UP)/PF 240 MCG/0.7 ML Syringe IM ONE (21:30)
[2020-06-07] MEDS ORDERED: Acetaminophen 325 MG Tab PO PRN (21:59)
[2020-06-07] MEDS: HYDROmorphone 1 MG/ML Syringe IVPUSH PRN (22:10)
--- NOTE | 2020-06-07 22:22 | PCM.HP.2 ---
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 Patient states she is still having flatus. She states that she has poor appetite over the last several days and a significant weight loss. Patient is currently on fentanyl 25 mcg/h patch that with increased 2 months ago from the 12.5. Patient had to 12.5 patches left and put those on after discharge from the hospital last week. Patient had a right hemicolectomy with ileocolic anastomosis on 05/10/2020, cystoscopy with stent on 05/28, cholecystectomy on 05/31/2020. Patient also had portal vein thrombosis on 02/06/2020. Acute blood loss anemia on 05/15/2020 and last reported hemoglobin of 9.0. Thrombocytosis which appears to be an acute phase reactant based on her notes from Dr. Joe Luevano MD. She did have a paracentesis last week. In the emergency department she had a white count of 7.8, hemoglobin 9.6, platelet count of 494. Sodium slightly decreased at 134, potassium of 3.4 CT of the abdomen showed left ureteral stent in place, mild thickening of the wall of the bladder present, thickening of the wall of the descending colon consistent with mild colitis, mesenteric lymphadenopathy, retroperitoneal lymphadenopathy, small amount of free intraperitoneal fluid present. Chest x- ray showed atelectatic change within the lung bases. X-ray did demonstrate stool noted throughout the colon with a nonobstructive and nonspecific bowel gas pattern. Patient was given Dilaudid with good pain relief, switch to just 1 patch of fentanyl 25 mcg and admitted for rehydration and pain control. Middle Abdomen Pain Score (Numeric/FACES): 5 - Related Data Allergies/Adverse Reactions: Allergies Allergy/AdvReac Type Severity Reaction Status Date / Time morphine Allergy Other Verified 06/07/20 16:38 tramadol Allergy Cannot Verified 06/07/20 16:38 Remember oxycodone AdvReac Drowsiness Verified 06/07/20 21:34 Home Medications: Home Meds Anastrozole [Arimidex] 1 mg PO DAILY 02/24/18 [History] Apixaban [Eliquis] 5 mg PO BID 06/07/20 [History] Cyclobenzaprine [Flexeril] 10 mg PO TID PRN 06/07/20 [History] Docusate Sodium [Stool Softener] 100 mg PO BID 06/07/20 [History] Losartan [Cozaar] 50 mg PO BID 06/07/20 [History] Omeprazole 20 mg PO DAILY 06/07/20 [History] Sucralfate 1 gm PO QID 06/07/20 [History] fentaNYL [Duragesic] 25 mcg TD Q72H 06/07/20 [History] polyethylene glycoL 3350 [MiraLAX] 17 gm PO DAILY 06/07/20 [History] Past Medical History HEENT History: Reports: Impaired Vision Other HEENT History: Wear glasses Gastrointestinal History: Reports: Chronic Constipation [employer] History: Reports: 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 Neurological Surgical History: Reports: Discectomy Musculoskeletal Surgical History: Reports: Knee Replacement Other Musculoskeletal Surgeries/Procedures:: shoulder spurs removed to left shoulder. Right elbow surgery. left knee replaced. Neck surgery - spur near spinal cord. Removed 5th toes to bilateral feet (hammer toes) Social & Family History - Tobacco Use Tobacco Use Status *Q: Never Tobacco User Second Hand Smoke Exposure: No - Caffeine Use Caffeine Use: Reports: None - Recreational Drug Use Recreational Drug Use: No - Living Situation & Occupation Living situation: Reports: Occupation: Retired H&P Review of Systems - Review of Systems: Review Of Systems: Comprehensive ROS is negative, except as noted in HPI. General: Reports: Malaise, Weakness, Fatigue, Decreased Appetite, Weight Loss. Denies: Fever, Chills HEENT: Reports: Glasses Pulmonary: Reports: Shortness of Breath, Cough. Denies: Sputum, Hemoptysis Cardiovascular: Reports: Dyspnea on Exertion. Denies: Chest Pain Gastrointestinal: Reports: Abdominal Pain, Anorexia, Constipation, Flatus, Nausea. Denies: Black Stool, Bloody Stool, Hematemesis Genitourinary: Reports: Frequency Musculoskeletal: Reports: Back Pain, Muscle Pain Skin: Reports: Dryness. Denies: Diaphoresis Psychiatric: Reports: No Symptoms Neurological: Reports: No Symptoms Hematologic/Lymphatic: Reports: No Symptoms Immunologic: Reports: No Symptoms Exam - Exam Exam: See Below - Vital Signs Vital Signs: Last Vital Signs Temp 98.1 F 06/07/20 20:58 Pulse 94 06/07/20 20:58 Resp 18 06/07/20 20:58 BP 155/95 H 06/07/20 20:58 Pulse Ox 96 06/07/20 20:58 Weight: 54.023 kg - Exam Quality Assessment: No: Supplemental Oxygen General: Alert, Oriented, 4 HEENT: Conjunctiva Clear, Hearing Intact, Mucosa Moist & [place], Pupils Equal Neck: Supple, Trachea Midline, 2 Lungs: Normal Respiratory Effort, Rales (Mild bibasilar) Cardiovascular: Regular Rate, Regular Rhythm. No: Rubs GI/Abdominal Exam: Normal Bowel Sounds, Soft, No Organomegaly, No Abnormal Bruit, Pelvis Stable, Distended, Tender (Diffusely tender). No: Guarding, Rigid, Rebound Back Exam: Normal Inspection Extremities: Normal Inspection, Normal Range of Motion, Non-Tender, No Pedal Edema, Normal Capillary Refill Peripheral Pulses: 2+: Posterior Tibial (L), Posterior Tibial (R), Dorsalis Pedis (L), Dorsalis Pedis (R) Neurological: Cranial Nerves Intact Neuro Extensive - Mental Status: Alert, Oriented x3, Normal Mood/Affect, Normal Cognition Psychiatric: Alert, Depressed - Patient Data Lab Results Last 24 hrs: Laboratory Results - last 24 hr 06/07/20 06/07/20 06/07/20 Range/Units 17:25 17:25 17:25 WBC 7.80 (3.98-10.04) K/mm3 RBC 3.22 L (3.98-5.22) M/mm3 Hgb 9.6 L (11.2-15.7) gm/dl Hct 29.4 L (34.1-44.9) % MCV 91.3 (79.4-94.8) fl MCH 29.8 (25.6-32.2) pg MCHC 32.7 (32.2-35.5) g/dl RDW Std Deviation 51.9 H (36.4-46.3) fL Plt Count 494 H D (182-369) K/mm3 MPV 9.8 (9.4-12.3) fl Neutrophils % (Manual) 85 H (40-60) % Band Neutrophils % 0 (0-10) % Lymphocytes % (Manual) 8 L (20-40) % Atypical Lymphs % 0 % Monocytes % (Manual) 7 (2-10) % Eosinophils % (Manual) 0 L (0.7-5.8) % Basophils % (Manual) 0 L (0.1-1.2) Platelet Estimate Increased Plt Morphology Comment Normal Hypochromasia 1+ slight RBC Morph Comment Abnormal ESR 37 H (0-20) mm/hr PT (9.7-12.0) SECONDS INR APTT (21.7-31.4) SECONDS Sodium 134 L (136-145) mEq/L Potassium 3.4 L (3.5-5.1) mEq/L Chloride 97 L (98-107) mEq/L Carbon Dioxide 26 (21-32) mEq/L Anion Gap 14.4 (5-15) BUN 9 (7-18) mg/dL Creatinine 0.9 (0.55-1.02) mg/dL Est Cr Clr Drug Dosing 45.14 mL/min Estimated GFR (MDRD) > 60 (>60) mL/min BUN/Creatinine Ratio 10.0 L (14-18) Glucose 112 (80-115) mg/dL Calcium 8.5 (8.5-10.1) mg/dL Magnesium 2.0 (1.8-2.4) mg/dl Total Bilirubin 0.5 (0.2-1.0) mg/dL GGT (5-55) U/L AST 23 (15-37) U/L ALT 24 (14-59) U/L Alkaline Phosphatase 145 H (46-116) U/L C-Reactive Protein 2.0 H* (<1.0) mg/dL NT-Pro-B Natriuret Pep (0-125) pg/mL Total Protein 6.5 (6.4-8.2) g/dl Albumin 2.6 L (3.4-5.0) g/dl Globulin 3.9 gm/dL Albumin/Globulin Ratio 0.7 L (1-2) Lipase (73-393) U/L Urine Color (Yellow) Urine Appearance (Clear) Urine pH (5.0-8.0) Ur Specific [place] (1.005-1.030) Urine Protein (Negative) Urine Glucose (UA) (Negative) Urine Ketones (Negative) Urine Occult Blood (Negative) Urine Nitrite (Negative) Urine Bilirubin (Negative) Urine Urobilinogen (0.2-1.0) Ur Leukocyte Esterase (Negative) Urine RBC (0-5) /hpf Urine WBC (0-5) /hpf Ur Squamous Epith Cells (0-5) /hpf Urine Bacteria (FEW) /hpf Urine Mucus (FEW) /hpf SARS-CoV-2 RNA ([facility]) (NEGATIVE) 06/07/20 06/07/20 06/07/20 Range/Units 17:25 17:25 17:25 WBC (3.98-10.04) K/mm3 RBC (3.98-5.22) M/mm3 Hgb (11.2-15.7) gm/dl Hct (34.1-44.9) % MCV (79.4-94.8) fl MCH (25.6-32.2) pg MCHC (32.2-35.5) g/dl RDW Std Deviation (36.4-46.3) fL Plt Count (182-369) K/mm3 MPV (9.4-12.3) fl Neutrophils % (Manual) (40-60) % Band Neutrophils % (0-10) % Lymphocytes % (Manual) (20-40) % Atypical Lymphs % % Monocytes % (Manual) (2-10) % Eosinophils % (Manual) (0.7-5.8) % Basophils % (Manual) (0.1-1.2) Platelet Estimate Plt Morphology Comment Hypochromasia RBC Morph Comment ESR (0-20) mm/hr PT 12.2 H (9.7-12.0) SECONDS INR 1.14 APTT 37.7 H (21.7-31.4) SECONDS Sodium (136-145) mEq/L Potassium (3.5-5.1) mEq/L Chloride (98-107) mEq/L Carbon Dioxide (21-32) mEq/L Anion Gap (5-15) BUN (7-18) mg/dL Creatinine (0.55-1.02) mg/dL Est Cr Clr Drug Dosing mL/min Estimated GFR (MDRD) (>60) mL/min BUN/Creatinine Ratio (14-18) Glucose (80-115) mg/dL Calcium (8.5-10.1) mg/dL Magnesium (1.8-2.4) mg/dl Total Bilirubin (0.2-1.0) mg/dL GGT 150 H (5-55) U/L AST (15-37) U/L ALT (14-59) U/L Alkaline Phosphatase (46-116) U/L C-Reactive Protein (<1.0) mg/dL NT-Pro-B Natriuret Pep 808 H (0-125) pg/mL Total Protein (6.4-8.2) g/dl Albumin (3.4-5.0) g/dl Globulin gm/dL Albumin/Globulin Ratio (1-2) Lipase (73-393) U/L Urine Color (Yellow) Urine Appearance (Clear) Urine pH (5.0-8.0) Ur Specific [place] (1.005-1.030) Urine Protein (Negative) Urine Glucose (UA) (Negative) Urine Ketones (Negative) Urine Occult Blood (Negative) Urine Nitrite (Negative) Urine Bilirubin (Negative) Urine Urobilinogen (0.2-1.0) Ur Leukocyte Esterase (Negative) Urine RBC (0-5) /hpf Urine WBC (0-5) /hpf Ur Squamous Epith Cells (0-5) /hpf Urine Bacteria (FEW) /hpf Urine Mucus (FEW) /hpf SARS-CoV-2 RNA ([facility]) (NEGATIVE) 06/07/20 06/07/20 06/07/20 Range/Units 17:25 17:27 17:30 WBC (3.98-10.04) K/mm3 RBC (3.98-5.22) M/mm3 Hgb (11.2-15.7) gm/dl Hct (34.1-44.9) % MCV (79.4-94.8) fl MCH (25.6-32.2) pg MCHC (32.2-35.5) g/dl RDW Std Deviation (36.4-46.3) fL Plt Count (182-369) K/mm3 MPV (9.4-12.3) fl Neutrophils % (Manual) (40-60) % Band Neutrophils % (0-10) % Lymphocytes % (Manual) (20-40) % Atypical Lymphs % % Monocytes % (Manual) (2-10) % Eosinophils % (Manual) (0.7-5.8) % Basophils % (Manual) (0.1-1.2) Platelet Estimate Plt Morphology Comment Hypochromasia RBC Morph Comment ESR (0-20) mm/hr PT (9.7-12.0) SECONDS INR APTT (21.7-31.4) SECONDS Sodium (136-145) mEq/L Potassium (3.5-5.1) mEq/L Chloride (98-107) mEq/L Carbon Dioxide (21-32) mEq/L Anion Gap (5-15) BUN (7-18) mg/dL Creatinine (0.55-1.02) mg/dL Est Cr Clr Drug Dosing mL/min Estimated GFR (MDRD) (>60) mL/min BUN/Creatinine Ratio (14-18) Glucose (80-115) mg/dL Calcium (8.5-10.1) mg/dL Magnesium (1.8-2.4) mg/dl Total Bilirubin (0.2-1.0) mg/dL GGT (5-55) U/L AST (15-37) U/L ALT (14-59) U/L Alkaline Phosphatase (46-116) U/L C-Reactive Protein (<1.0) mg/dL NT-Pro-B Natriuret Pep (0-125) pg/mL Total Protein (6.4-8.2) g/dl Albumin (3.4-5.0) g/dl Globulin gm/dL Albumin/Globulin Ratio (1-2) Lipase 488 H (73-393) U/L Urine Color Light yellow (Yellow) Urine Appearance Clear (Clear) Urine pH 7.5 (5.0-8.0) Ur Specific [place] 1.020 (1.005-1.030) Urine Protein Negative (Negative) Urine Glucose (UA) Negative (Negative) Urine Ketones Trace H (Negative) Urine Occult Blood 3+ H (Negative) Urine Nitrite Negative (Negative) Urine Bilirubin Negative (Negative) Urine Urobilinogen 0.2 (0.2-1.0) Ur Leukocyte Esterase 2+ H (Negative) Urine RBC 10-20 H (0-5) /hpf Urine WBC 0-5 (0-5) /hpf Ur Squamous Epith Cells 0-5 (0-5) /hpf Urine Bacteria Few (FEW) /hpf Urine Mucus Not seen (FEW) /hpf SARS-CoV-2 RNA ([facility]OC[facility]) Negative (NEGATIVE) Result Diagrams: 06/07/20 17:25 06/07/20 17:25 Sepsis Event Note - Evaluation Sepsis Screening Result: No Definite Risk - Focused Exam Vital Signs: Vital Signs Temp Temp Pulse Pulse Resp BP BP 06/07/20 20:58 98.1 F 94 18 155/95 H 06/07/20 16:21 97.7 F 86 20 190/86 H Pulse Ox 06/07/20 20:58 96 06/07/20 16:21 99 - Problem List (1) Malignant ascites SNOMED Code(s): 749212923 ICD Code: R18.0 - MALIGNANT ASCITES Status: Acute Current Visit: Yes (2) Adenocarcinoma, colon SNOMED Code(s): 984308134 ICD Code: C18.9 - MALIGNANT NEOPLASM OF COLON, UNSPECIFIED Status: Acute Current Visit: Yes (3) Thrombocytosis SNOMED Code(s): 1970998 ICD Code: D47.3 - ESSENTIAL (HEMORRHAGIC) THROMBOCYTHEMIA Status: Acute Current Visit: Yes (4) Malignant neoplasm of urinary bladder SNOMED Code(s): 529759156 ICD Code: C67.9 - MALIGNANT NEOPLASM OF BLADDER, UNSPECIFIED Status: Acute Current Visit: Yes Qualifiers: Bladder location: trigone Qualified Code(s): C67.0 - Malignant neoplasm of trigone of bladder (5) Portal vein thrombosis SNOMED Code(s): 93811701 ICD Code: I81 - PORTAL VEIN THROMBOSIS Status: Acute Current Visit: Yes Problem List Initiated/Reviewed/Updated: Yes Orders Last 24hrs: Active Orders 24 hr Category Date Time Status Admission Status [Patient Status] [ADT] Routine ADT 06/07/20 20:16 Active Influenza Vaccine Charge [RC] .DISCHARGE Care 06/07/20 21:23 Active Oxygen Therapy [RC] PRN Care 06/07/20 21:59 Ordered Up ad Myla [RC] ASDIRECTED Care 06/07/20 21:59 Ordered VTE/DVT Education [RC] PER UNIT ROUTINE Care 06/07/20 21:59 Ordered Vital Signs [RC] Q4H Care 06/07/20 21:59 Ordered Regular Diet [DIET] Diet 06/08/20 Breakfast Ordered Abdomen 1V Flat [CR] Stat Exams 06/07/20 17:07 Taken Abdomen Pelvis w Cont [CT] Stat Exams 06/07/20 18:24 Taken Chest 1V Frontal [CR] Stat Exams 06/07/20 17:07 Taken Acetaminophen [TylenoL] Med 06/07/20 21:59 Ordered 650 mg PO Q4H PRN Anastrozole [Arimidex] Med 06/08/20 09:00 Ordered 1 mg PO DAILY Apixaban [Eliquis] Med 06/08/20 09:00 Ordered 5 mg PO BID Cyclobenzaprine [Flexeril] Med 06/07/20 22:04 Ordered 10 mg PO TID PRN Dextrose 5%-Lactated Ringers 1,000 ml Med 06/07/20 20:15 Active IV ASDIRECTED Docusate Sodium [Colace] Med 06/08/20 09:00 Ordered 100 mg PO BID HYDROmorphone [Dilaudid] Med 06/07/20 21:53 Active 1 mg IVPUSH Q2H PRN Losartan Med 06/07/20 22:15 Ordered 50 mg PO BID Melatonin Med 06/07/20 21:59 Ordered 9 mg PO BEDTIME PRN Omeprazole Med 06/08/20 09:00 Ordered 20 mg PO DAILY Ondansetron [Zofran] Med 06/07/20 21:59 Ordered 4 mg IV Q4H PRN Saccharomyces Boulardii [Florastor] Med 06/08/20 09:00 Ordered 500 mg PO BID Sennosides [Senna] Med 06/08/20 21:00 Ordered 17.2 mg PO BEDTIME Sennosides [Senna] Med 06/08/20 22:30 Once 17.2 mg PO ONETIME ONE bisacodyL [Dulcolax] Med 06/07/20 22:30 Once 5 mg PO ONETIME ONE fentaNYL [Duragesic] Med 06/07/20 19:45 Active 25 mcg TRDERM Q72H oxyCODONE Med 06/07/20 21:54 Active 5 - 10 mg PO Q4H PRN polyethylene glycoL 3350 [MiraLAX] Med 06/08/20 09:00 Ordered 17 gm PO DAILY Resuscitation Status Routine Resus Stat 06/07/20 21:59 Ordered Medication Orders Acetaminophen (Tylenol) 650 mg PO Q4H PRN PRN Reason: Pain (Mild 1-3)/fever Anastrozole (Arimidex) 1 mg PO DAILY [facility] Apixaban (Eliquis) 5 mg PO BID [facility] Bisacodyl (Dulcolax) 5 mg PO ONETIME ONE Stop: 06/07/20 22:31 Cyclobenzaprine HCl (Flexeril) 10 mg PO TID PRN PRN Reason: Pain Docusate Sodium (Colace) 100 mg PO BID [facility] Fentanyl (Duragesic) 25 mcg TRDERM Q72H JEMMA Last Admin: 06/07/20 20:00 Dose: 25 mcg Documented by: HERMMIC Hydromorphone HCl (Dilaudid) 1 mg IVPUSH Q2H PRN PRN Reason: Pain (severe 7-10) Last Admin: 06/07/20 22:10 Dose: 1 mg Documented by: YOEL Dextrose/Lactated Ringer's (Dextrose 5%-Lactated Ringers) 1,000 mls @ 100 mls/hr IV ASDIRECTED [facility] Losartan Potassium (Cozaar) 50 mg PO BID [facility] Melatonin (Melatonin) 9 mg PO BEDTIME PRN PRN Reason: Insomnia Non-Formulary Medication (Omeprazole) 20 mg PO DAILY [facility] Ondansetron HCl (Zofran) 4 mg IV Q4H PRN PRN Reason: Nausea/Vomiting Oxycodone HCl (Oxycodone) 5 - 10 mg PO Q4H PRN PRN Reason: Pain (moderate 4-6) Polyethylene Glycol (Miralax) 17 gm PO DAILY [facility] Saccharomyces Boulardii (Florastor) 500 mg PO BID [facility] Senna (Senna) 17.2 mg PO BEDTIME JEMMA Senna (Senna) 17.2 mg PO ONETIME ONE Stop: 06/07/20 22:31 Assessment/Plan Comment:: Assessment * 70-year-old female with 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 * She was admitted on 05/27/[address] [facility] with metastatic colon cancer s/p colectomy with abdominal pain. Pain continued to worsen and medications were not effective. Her stomach became more distended and full and able to only eat small volumes. Paracentesis done and ascitic fluid was positive for malignancy. She had a laparoscopic cholecystectomy and was unable to move her bowels afterwards. She was given Relistor with large results. She was then discharged. * Patient did have good results with Dilaudid in the emergency department. Also she has been on fentanyl 25 mcg patch for 2 months, but over the last couple of days has been using 212 mcg patches which could be causing the increase in pain secondary to poor absorption. * Patient wants to be a full code and want to continue to fight this cancer. * WBC 7.8, hemoglobin 9.6, ESR 37, CRP 2.0, AST 23, ALT 24, alkaline phosphatase 145, total bilirubin 0.5, estimated GFR greater than 60. * Thrombocytosis * [place] to be secondary to inflammatory response/acute phase reactant * Platelets 494 * Hyponatremia/hypokalemia * Likely secondary to poor oral intake * Sodium 134, potassium 3.4 * Normochromic normocytic anemia * Likely secondary to anemia of chronic disease. Stable from previous/most recent 9.0 * Hemoglobin 9.6 * Hypertension * Presented to the emergency department with blood pressure of 190/86 * Home medications include losartan 50 mg daily * Blood pressure is likely worsened secondary to pain. * Portal vein thrombosis * Patient on Eliquis 5 mg twice daily. Plan * Admit to medical floor for fluids and pain management * Continue on Dilaudid 1 mg IV every 2 hours as needed. * Add oxycodone 5-10 mg every 4 hours as needed pain. She states that in the past she has been sedated with oxycodone, but that was previous to her starting on fentanyl patches. * Treatment of her constipation with both stimulant and osmotic laxatives * Continue home meds except Carafate * Encourage oral intake * D5 LR at 100 mL an hour * Potassium 20 mEq IV x1 * VTE prophylaxis with Eliquis * CODE STATUS: Full code * Length of stay likely 2 to 3 days. - Mortality Measure Prognosis:: Poor
[2020-06-07] MEDS ORDERED: Sennosides 8.6 MG Tab PO ONE (22:30)
[2020-06-07] MEDS ORDERED: Bisacodyl 5 MG Tab PO ONE (22:30)
[2020-06-07] MEDS: Docusate Sodium 100 MG Cap PO SCH (22:35)
[2020-06-07] MEDS: Saccharomyces Boulardii (Probiotic) 250 MG Cap PO SCH (22:35)
[2020-06-07] MEDS: Apixaban 5 MG Tab PO SCH (22:35)
[2020-06-07] MEDS: Cyclobenzaprine 10 MG Tab PO PRN (22:36)
[2020-06-07] MEDS: Losartan 25 MG Tab PO SCH (22:36)
[2020-06-07] MEDS: Melatonin 3 MG Tab PO PRN (22:57)
[2020-06-07] MEDS: oxyCODONE 5 MG Tab PO PRN (22:58)
[2020-06-08] MEDS: Ondansetron 4 MG/2 ML SDV IV PRN ×2 (00:34→19:54)
[2020-06-08] MEDS: HYDROmorphone 1 MG/ML Syringe IVPUSH PRN ×4 (00:36→20:03)
[2020-06-08] MEDS: Dextrose 5%-Lactated Ringers 1,000 ML IV SCH ×3 (00:43→20:13)
[2020-06-08] MEDS: oxyCODONE 5 MG Tab PO PRN ×4 (05:56→22:20)
[2020-06-08] MEDS: Pantoprazole 40 MG Tab.CR PO SCH (05:57)
[2020-06-08] MEDS ORDERED: Non-Formulary Medication 1 Each (Omeprazole 20 MG) PO SCH (09:00)
[2020-06-08] MEDS: Saccharomyces Boulardii (Probiotic) 250 MG Cap PO SCH ×2 (09:13→20:53)
[2020-06-08] MEDS: Docusate Sodium 100 MG Cap PO SCH ×2 (09:13→20:52)
[2020-06-08] MEDS: Losartan 25 MG Tab PO SCH ×2 (09:13→20:51)
[2020-06-08] MEDS: Apixaban 5 MG Tab PO SCH ×2 (09:17→20:51)
[2020-06-08] MEDS: Polyethylene Glycol 3350 Powder 17 GM Packet PO SCH (09:17)
[2020-06-08] MEDS: Anastrozole 1 MG Tab PO SCH (09:40)
[2020-06-08] MEDS ORDERED: Magnesium Hydroxide 400 MG/5 ML Susp 30 ML Cup PO ONE (12:15)
[2020-06-08] MEDS ORDERED: Magnesium Sulfate/Water 2 GM in Premix Bag 1 BAG IV ONE (15:45)
[2020-06-08] MEDS: Potassium Chloride 10 MEQ in Premix Bag 1 BAG IV SCH ×2 (17:53→19:00)
--- NOTE | 2020-06-08 18:08 | PCM.PN ---
- General Info Date of Service: 06/08/20 Admission Dx/Problem (Free Text): Admission Diagnosis/Problem Admission Diagnosis/Problem Abdominal pain Subjective Update: Patient has had no improvement in her pain. She continues on Dilaudid 1 mg and oxycodone 5 mg. They have not tried oxycodone 10 mg yet. She has not had a bowel movement her appetite is poor. Functional Status: Denies: Pain Controlled - Review of Systems General: Reports: Fatigue HEENT: Reports: No Symptoms Pulmonary: Reports: No Symptoms Cardiovascular: Reports: No Symptoms Gastrointestinal: Reports: Abdominal Pain, [place] Musculoskeletal: Reports: No Symptoms Skin: Reports: No Symptoms Neurological: Reports: No Symptoms Psychiatric: Reports: No Symptoms - Patient Data Vitals - Most Recent: Last Vital Signs Temp 98.1 F 06/08/20 15:17 Pulse 93 06/08/20 15:17 Resp 24 H 06/08/20 11:55 BP 138/90 06/08/20 15:17 Pulse Ox 94 L 06/08/20 15:17 Weight - Most Recent: 54.023 kg I&O - Last 24 Hours: Intake & Output 06/08/20 06/08/20 06/08/20 06:59 14:59 22:59 Intake Total 1121 800 Output Total 1150 950 Balance -29 -150 Lab Results Last 24 Hours: Laboratory Results - last 24 hr 06/07/20 06/07/20 06/07/20 Range/Units 17:25 17:25 17:25 Neutrophils % (Manual) 85 H (40-60) % Band Neutrophils % 0 (0-10) % Lymphocytes % (Manual) 8 L (20-40) % Atypical Lymphs % 0 % Monocytes % (Manual) 7 (2-10) % Eosinophils % (Manual) 0 L (0.7-5.8) % Basophils % (Manual) 0 L (0.1-1.2) Platelet Estimate Increased Plt Morphology Comment Normal Hypochromasia 1+ slight RBC Morph Comment Abnormal ESR 37 H (0-20) mm/hr PT (9.7-12.0) SECONDS INR APTT (21.7-31.4) SECONDS Sodium 134 L (136-145) mEq/L Potassium 3.4 L (3.5-5.1) mEq/L Chloride 97 L (98-107) mEq/L Carbon Dioxide 26 (21-32) mEq/L Anion Gap 14.4 (5-15) BUN 9 (7-18) mg/dL Creatinine 0.9 (0.55-1.02) mg/dL Est Cr Clr Drug Dosing 45.14 mL/min Estimated GFR (MDRD) > 60 (>60) mL/min BUN/Creatinine Ratio 10.0 L (14-18) Glucose 112 (80-115) mg/dL Calcium 8.5 (8.5-10.1) mg/dL Magnesium 2.0 (1.8-2.4) mg/dl Total Bilirubin 0.5 (0.2-1.0) mg/dL GGT (5-55) U/L AST 23 (15-37) U/L ALT 24 (14-59) U/L Alkaline Phosphatase 145 H (46-116) U/L C-Reactive Protein 2.0 H* (<1.0) mg/dL NT-Pro-B Natriuret Pep (0-125) pg/mL Total Protein 6.5 (6.4-8.2) g/dl Albumin 2.6 L (3.4-5.0) g/dl Globulin 3.9 gm/dL Albumin/Globulin Ratio 0.7 L (1-2) Lipase (73-393) U/L Urine RBC (0-5) /hpf Urine WBC (0-5) /hpf Ur Squamous Epith Cells (0-5) /hpf Urine Bacteria (FEW) /hpf Urine Mucus (FEW) /hpf SARS-CoV-2 RNA ([place]) (NEGATIVE) 06/07/20 06/07/20 06/07/20 Range/Units 17:25 17:25 17:25 Neutrophils % (Manual) (40-60) % Band Neutrophils % (0-10) % Lymphocytes % (Manual) (20-40) % Atypical Lymphs % % Monocytes % (Manual) (2-10) % Eosinophils % (Manual) (0.7-5.8) % Basophils % (Manual) (0.1-1.2) Platelet Estimate Plt Morphology Comment Hypochromasia RBC Morph Comment ESR (0-20) mm/hr PT 12.2 H (9.7-12.0) SECONDS INR 1.14 APTT 37.7 H (21.7-31.4) SECONDS Sodium (136-145) mEq/L Potassium (3.5-5.1) mEq/L Chloride (98-107) mEq/L Carbon Dioxide (21-32) mEq/L Anion Gap (5-15) BUN (7-18) mg/dL Creatinine (0.55-1.02) mg/dL Est Cr Clr Drug Dosing mL/min Estimated GFR (MDRD) (>60) mL/min BUN/Creatinine Ratio (14-18) Glucose (80-115) mg/dL Calcium (8.5-10.1) mg/dL Magnesium (1.8-2.4) mg/dl Total Bilirubin (0.2-1.0) mg/dL GGT 150 H (5-55) U/L AST (15-37) U/L ALT (14-59) U/L Alkaline Phosphatase (46-116) U/L C-Reactive Protein (<1.0) mg/dL NT-Pro-B Natriuret Pep 808 H (0-125) pg/mL Total Protein (6.4-8.2) g/dl Albumin (3.4-5.0) g/dl Globulin gm/dL Albumin/Globulin Ratio (1-2) Lipase (73-393) U/L Urine RBC (0-5) /hpf Urine WBC (0-5) /hpf Ur Squamous Epith Cells (0-5) /hpf Urine Bacteria (FEW) /hpf Urine Mucus (FEW) /hpf SARS-CoV-2 RNA ([place]) (NEGATIVE) 06/07/20 06/07/2006/07/ Range/Units 17:25 17:27 17:30 Neutrophils % (Manual) (40-60) % Band Neutrophils % (0-10) % Lymphocytes % (Manual) (20-40) % Atypical Lymphs % % Monocytes % (Manual) (2-10) % Eosinophils % (Manual) (0.7-5.8) % Basophils % (Manual) (0.1-1.2) Platelet Estimate Plt Morphology Comment Hypochromasia RBC Morph Comment ESR (0-20) mm/hr PT (9.7-12.0) SECONDS INR APTT (21.7-31.4) SECONDS Sodium (136-145) mEq/L Potassium (3.5-5.1) mEq/L Chloride (98-107) mEq/L Carbon Dioxide (21-32) mEq/L Anion Gap (5-15) BUN (7-18) mg/dL Creatinine (0.55-1.02) mg/dL Est Cr Clr Drug Dosing mL/min Estimated GFR (MDRD) (>60) mL/min BUN/Creatinine Ratio (14-18) Glucose (80-115) mg/dL Calcium (8.5-10.1) mg/dL Magnesium (1.8-2.4) mg/dl Total Bilirubin (0.2-1.0) mg/dL GGT (5-55) U/L AST (15-37) U/L ALT (14-59) U/L Alkaline Phosphatase (46-116) U/L C-Reactive Protein (<1.0) mg/dL NT-Pro-B Natriuret Pep (0-125) pg/mL Total Protein (6.4-8.2) g/dl Albumin (3.4-5.0) g/dl Globulin gm/dL Albumin/Globulin Ratio (1-2) Lipase 488 H (73-393) U/L Urine RBC 10-20 H (0-5) /hpf Urine WBC 0-5 (0-5) /hpf Ur Squamous Epith Cells 0-5 (0-5) /hpf Urine Bacteria Few (FEW) /hpf Urine Mucus Not seen (FEW) /hpf SARS-CoV-2 RNA ([place]) Negative (NEGATIVE) Med Orders - Current: Current Medications Acetaminophen (Tylenol) 650 mg PO Q4H PRN PRN Reason: Pain (Mild 1-3)/fever Anastrozole (Arimidex) 1 mg PO DAILY [facility] Last Admin: 06/08/20 09:40 Dose: 1 mg Documented by: Apixaban (Eliquis) 5 mg PO BID [facility] Last Admin: 06/08/20 09:17 Dose: 5 mg Documented by: Cyclobenzaprine HCl (Flexeril) 10 mg PO TID PRN PRN Reason: Pain Last Admin: 06/07/20 22:36 Dose: 10 mg Documented by: Docusate Sodium (Colace) 100 mg PO BID [facility] Last Admin: 06/08/20 09:13 Dose: 100 mg Documented by: Fentanyl (Duragesic) 25 mcg TRDERM Q72H [facility] Hydromorphone HCl (Dilaudid) 1 mg IVPUSH Q2H PRN PRN Reason: Pain (severe 7-10) Last Admin: 06/08/20 15:38 Dose: 1 mg Documented by: Dextrose/Lactated Ringer's (Dextrose 5%-Lactated Ringers) 1,000 mls @ 100 mls/hr IV ASDIRECTED [facility] Last Admin: 06/08/20 10:31 Dose: 100 mls/hr Documented by: Potassium Chloride 10 meq/ (Premix) 100 mls @ 100 mls/hr IV Q1H [facility] Stop: 06/08/20 18:44 Last Admin: 06/08/20 17:53 Dose: 100 mls/hr Documented by: Losartan Potassium (Cozaar) 50 mg PO BID [facility] Last Admin: 06/08/20 09:13 Dose: 50 mg Documented by: Melatonin (Melatonin) 9 mg PO BEDTIME PRN PRN Reason: Insomnia Last Admin: 06/07/20 22:57 Dose: 9 mg Documented by: Miscellaneous Information (Remove Patch) 1 ea TRDERM Q72H [facility] Ondansetron HCl (Zofran) 4 mg IV Q4H PRN PRN Reason: Nausea/Vomiting Last Admin: 06/08/20 00:34 Dose: 4 mg Documented by: Oxycodone HCl (Oxycodone) 5 - 10 mg PO Q4H PRN PRN Reason: Pain (moderate 4-6) Last Admin: 06/08/20 17:46 Dose: 10 mg Documented by: Pantoprazole Sodium (Protonix) 40 mg PO ACBREAKFAST [facility] Last Admin: 06/08/20 05:57 Dose: 40 mg Documented by: Polyethylene Glycol (Miralax) 17 gm PO DAILY [facility] Last Admin: 06/08/20 09:17 Dose: 17 gm Documented by: Saccharomyces Boulardii (Florastor) 500 mg PO BID [facility] Last Admin: 06/08/20 09:13 Dose: 500 mg Documented by: Senna (Senna) 17.2 mg PO BEDTIME [facility] Discontinued Medications Bisacodyl (Dulcolax) 5 mg PO ONETIME ONE Stop: 06/07/20 22:31 Last Admin: 06/07/20 22:34 Dose: 5 mg Documented by: Fentanyl (Duragesic) 25 mcg TRDERM Q72H [facility] Last Admin: 06/07/20 20:00 Dose: 25 mcg Documented by: Hydromorphone HCl (Dilaudid) 1 mg IVPUSH ONETIME ONE Stop: 06/07/20 17:06 Last Admin: 06/07/20 17:14 Dose: 1 mg Documented by: Hydromorphone HCl (Dilaudid) 1 mg IVPUSH ONETIME ONE Stop: 06/07/20 19:45 Last Admin: 06/07/20 20:01 Dose: 1 mg Documented by: Dextrose/Lactated Ringer's (Dextrose 5%-Lactated Ringers) 1,000 mls @ 150 mls/hr IV ASDIRECTED [facility] Last Infusion: 06/07/20 20:35 Dose: 100 mls/hr Documented by: Magnesium Sulfate 2 gm/ Premix 50 mls @ 25 mls/hr IV ONETIME ONE Stop: 06/08/20 17:44 Last Admin: 06/08/20 17:33 Dose: Not Given Documented by: Influenza Virus Vaccine (Pharmacy To Dose - Influenza Vaccine) 1 each IM ONETIME ONE Stop: 06/07/20 21:24 Influenza Virus Vaccine (Fluzone High-Dose Quad ) 240 mcg IM .ONCE ONE Stop: 06/07/20 21:31 Iopamidol (Isovue-300 (61%)) 100 ml IVPUSH ONETIME ONE Stop: 06/07/20 18:56 Last Admin: 06/07/20 19:57 Dose: 100 ml Documented by: Magnesium Hydroxide (Milk Of Magnesia) 30 ml PO ONETIME ONE Stop: 06/08/20 12:16 Last Admin: 06/08/20 12:41 Dose: 30 ml Documented by: Metoclopramide HCl (Reglan) 5 mg IVPUSH ONETIME ONE Stop: 06/07/20 17:06 Last Admin: 06/07/20 17:14 Dose: 5 mg Documented by: Senna (Senna) 17.2 mg PO ONETIME ONE Stop: 06/07/20 22:31 Last Admin: 06/07/20 22:35 Dose: 17.2 mg Documented by: Sodium Chloride (Saline Flush) 10 ml FLUSH ONETIME ONE Stop: 06/07/20 18:56 Last Admin: 06/07/20 19:57 Dose: 10 ml Documented by: - Exam Quality Assessment: No: Supplemental Oxygen General: Alert, Oriented HEENT: Pupils Equal, Mucous Membr. Moist/[place]ara Neck: Supple Lungs: Normal Respiratory Effort, Rales (Mild bibasilar) Cardiovascular: Regular Rate, Regular Rhythm GI/Abdominal Exam: Normal Bowel Sounds, Soft, Tender (Diffuse tenderness). No: Guarding, Rigid, Rebound Back Exam: Normal Inspection Extremities: Normal Inspection, Normal Range of Motion, Non-Tender, No Pedal Edema, Normal Capillary Refill Skin: Warm, Dry, Intact Psy/Mental Status: Alert, Normal Affect, Normal Mood Sepsis Event Note - Evaluation Sepsis Screening Result: No Definite Risk - Focused Exam Vital Signs: Vital Signs Temp Pulse Resp BP Pulse Ox 06/08/20 15:17 98.1 F 93 138/90 94 L 06/08/20 11:55 97.9 F 85 24 H 172/88 H 96 06/08/20 09:15 98.1 F 89 20 150/82 H 98 06/08/20 09:13 150/82 H - Problem List & Annotations (1) Malignant ascites SNOMED Code(s): 845964046 Code(s): R18.0 - MALIGNANT ASCITES Status: Acute Current Visit: Yes (2) Adenocarcinoma, colon SNOMED Code(s): 495298409 Code(s): C18.9 - MALIGNANT NEOPLASM OF COLON, UNSPECIFIED Status: Acute Current Visit: Yes (3) Thrombocytosis SNOMED Code(s): 5638433 Code(s): D47.3 - ESSENTIAL (HEMORRHAGIC) THROMBOCYTHEMIA Status: Acute Current Visit: Yes (4) Malignant neoplasm of urinary bladder SNOMED Code(s): 616564316 Code(s): C67.9 - MALIGNANT NEOPLASM OF BLADDER, UNSPECIFIED Status: Acute Current Visit: Yes Qualifiers: Bladder location: trigone Qualified Code(s): C67.0 - Malignant neoplasm of trigone of bladder (5) Portal vein thrombosis SNOMED Code(s): 98191417 Code(s): I81 - PORTAL VEIN THROMBOSIS Status: Acute Current Visit: Yes - Problem List Review Problem List Initiated/Reviewed/Updated: Yes - My Orders Last 24 Hours: My Active Orders 06/07/20 21:23 Influenza Vaccine Charge [RC] .DISCHARGE 06/07/20 21:53 HYDROmorphone [Dilaudid] 1 mg IVPUSH Q2H PRN 06/07/20 21:54 oxyCODONE 5 - 10 mg PO Q4H PRN 06/07/20 21:59 Oxygen Therapy [RC] PRN Up ad Myla [RC] ASDIRECTED VTE/DVT Education [RC] DAILY Vital Signs [RC] Q4HR Acetaminophen [TylenoL] 650 mg PO Q4H PRN Melatonin 9 mg PO BEDTIME PRN Ondansetron [Zofran] 4 mg IV Q4H PRN Resuscitation Status Routine 06/07/20 22:04 Cyclobenzaprine [Flexeril] 10 mg PO TID PRN 06/07/20 22:15 Losartan [Cozaar] 50 mg PO BID 06/07/20 22:30 Apixaban [Eliquis] 5 mg PO BID Docusate Sodium [Colace] 100 mg PO BID Saccharomyces Boulardii [Florastor] 500 mg PO BID 06/08/20 06:00 Pantoprazole [ProTONIX] 40 mg PO ACBREAKFAST 06/08/20 Breakfast Regular Diet [DIET] 06/08/20 09:00 Anastrozole [Arimidex] 1 mg PO DAILY polyethylene glycoL 3350 [MiraLAX] 17 gm PO DAILY 06/08/20 15:58 Enema [RC] ASDIRECTED 06/08/20 16:45 Potassium Chloride [KCl 10 MEQ in Water 100 ML] 10 meq Premix Bag 1 bag IV Q1H 06/08/20 21:00 Sennosides [Senna] 17.2 mg PO BEDTIME - Plan Plan:: Assessment 06/07/2020 * 70-year-old female with 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 * She was admitted on 05/27/2020 to [facility] with metastatic colon cancer s/p colectomy with abdominal pain. Pain continued to worsen and medications were not effective. Her stomach became more distended and full and able to only eat small volumes. Paracentesis done and ascitic fluid was positive for malignancy. She had a laparoscopic cholecystectomy and was unable to move her bowels afterwards. She was given Relistor with large results. She was then discharged. * Patient did have good results with Dilaudid in the emergency department. Also she has been on fentanyl 25 mcg patch for 2 months, but over the last couple of days has been using 212 mcg patches which could be causing the increase in pain secondary to poor absorption. * Patient wants to be a full code and want to continue to fight this cancer. * WBC 7.8, hemoglobin 9.6, ESR 37, CRP 2.0, AST 23, ALT 24, alkaline phosphatase 145, total bilirubin 0.5, estimated GFR greater than 60. * Thrombocytosis * [place] to be secondary to inflammatory response/acute phase reactant * Platelets 494 * Hyponatremia/hypokalemia * Likely secondary to poor oral intake * Sodium 134, potassium 3.4 * Normochromic normocytic anemia * Likely secondary to anemia of chronic disease. Stable from previous/most recent 9.0 * Hemoglobin 9.6 * Hypertension * Presented to the emergency department with blood pressure of 190/86 * Home medications include losartan 50 mg daily * Blood pressure is likely worsened secondary to pain. * Portal vein thrombosis * Patient on Eliquis 5 mg twice daily. 06/08/2020 * Abdominal pain of unknown cause * Stage IV adenocarcinoma of unknown primary but likely colon * Malignant ascites s/p paracentesis 1 week ago * Constipation * Thrombocytosis * Hyponatremia/hypokalemia/normochromic normocytic anemia * Hypertension * Portal vein thrombosis Patient has had no real improvement in both pain and bowel movement. She has been on senna, Dulcolax, milk of magnesia without results. Enema was given today also without results. Patient continues to have significant pain even on fentanyl, oxycodone, and Dilaudid. Plan * Admit to medical floor for fluids and pain management * Continue on Dilaudid 1 mg IV every 2 hours as needed. * Increase oxycodone to 10 mg every 4 hours as needed pain. * Consider increasing fentanyl patch tomorrow to 50 mcg * Amitiza 24 mg twice daily for opiate-induced constipation * Encourage oral intake * D5 LR at 100 mL an hour * CBC, CMP, mag, phosphorus tomorrow morning * VTE prophylaxis with Eliquis * CODE STATUS: Full code * Length of stay likely 2 to 3 days.
[2020-06-08] MEDS ORDERED: Lubiprostone 24 MCG Cap PO ONE (19:00)
[2020-06-08] MEDS: Lidocaine 4% 1 each Patch TOP SCH (20:03)
[2020-06-08] MEDS: Cyclobenzaprine 10 MG Tab PO PRN (20:52)
[2020-06-08] MEDS: Sennosides 8.6 MG Tab PO SCH (20:53)
[2020-06-08] MEDS: Melatonin 3 MG Tab PO PRN (20:54)
[2020-06-09] MEDS: Dextrose 5%-Lactated Ringers 1,000 ML IV SCH (04:01)
[2020-06-09] MEDS: oxyCODONE 5 MG Tab PO PRN ×5 (05:44→23:10)
[2020-06-09] MEDS: Pantoprazole 40 MG Tab.CR PO SCH (05:45)
[2020-06-09] MEDS ORDERED: 50% Dextrose in Water 50 ML Syringe IV PRN ×2 (08:32→09:00)
[2020-06-09] MEDS ORDERED: Insulin Lispro 100 Units/ML 3 ML Vial SUBCUT ONE (08:40)
[2020-06-09] MEDS: HYDROmorphone 1 MG/ML Syringe IVPUSH PRN ×3 (08:48→19:29)
[2020-06-09] MEDS: Polyethylene Glycol 3350 Powder 17 GM Packet PO SCH (08:50)
[2020-06-09 09:05] LABS: HEMOGLOBIN A1C 4.5 % (4.50-6.20)
[2020-06-09] MEDS: Docusate Sodium 100 MG Cap PO SCH ×2 (09:09→20:48)
[2020-06-09] MEDS: Saccharomyces Boulardii (Probiotic) 250 MG Cap PO SCH ×2 (09:09→20:47)
[2020-06-09] MEDS: Apixaban 5 MG Tab PO SCH ×2 (09:10→20:48)
[2020-06-09] MEDS: Anastrozole 1 MG Tab PO SCH (09:10)
[2020-06-09] MEDS: Losartan 25 MG Tab PO SCH ×2 (09:10→20:47)
[2020-06-09] MEDS: Lubiprostone 24 MCG Cap PO SCH ×2 (09:15→16:59)
[2020-06-09] MEDS ORDERED: Insulin Lispro 100 Units/ML 3 ML Vial SUBCUT SCH (11:00)
--- NOTE | 2020-06-09 19:01 | PCM.PN ---
- General Info Date of Service: 06/09/20 Admission Dx/Problem (Free Text): Admission Diagnosis/Problem Admission Diagnosis/Problem Abdominal pain Subjective Update: Patient's abdominal pain is much better today. She states that oxycodone is helping and Dilaudid does not. She has not had a bowel movement yet and we started Amitiza yesterday. Functional Status: Reports: Pain Controlled - Review of Systems General: Reports: No Symptoms HEENT: Reports: No Symptoms Pulmonary: Reports: No Symptoms Cardiovascular: Reports: No Symptoms Gastrointestinal: Reports: Abdominal Pain (Much improved) - Patient Data Vitals - Most Recent: Last Vital Signs Temp 98.1 F 06/09/20 16:00 Pulse 88 06/09/20 16:00 Resp 20 06/09/20 16:00 BP 144/86 H 06/09/20 16:00 Pulse Ox 99 06/09/20 16:00 Weight - Most Recent: 55.202 kg I&O - Last 24 Hours: Intake & Output 06/09/20 06/09/20 06/09/20 06:59 14:59 22:59 Intake Total 0 1070 Output Total 950 Balance 0 120 Lab Results Last 24 Hours: Laboratory Results - last 24 hr 06/09/20 06/09/20 06/09/20 Range/Units 05:45 05:45 05:45 WBC 6.68 (3.98-10.04) K/mm3 RBC 2.83 L (3.98-5.22) M/mm3 Hgb 8.4 L (11.2-15.7) gm/dl Hct 26.8 L (34.1-44.9) % MCV 94.7 D (79.4-94.8) fl MCH 29.7 (25.6-32.2) pg MCHC 31.3 L (32.2-35.5) g/dl RDW Std Deviation 53.4 H (36.4-46.3) fL Plt Count 373 H D (182-369) K/mm3 MPV 9.9 (9.4-12.3) fl Neut % (Auto) 73.6 H (34.0-71.1) % Lymph % (Auto) 7.3 L (19.3-51.7) % [place] % (Auto) 13.8 H (4.7-12.5) % Eos % (Auto) 4.3 (0.7-5.8) Baso % (Auto) 0.6 (0.1-1.2) % Neut # (Auto) 4.91 (1.56-6.13) K/mm3 Lymph # (Auto) 0.49 L (1.18-3.74) K/mm3 [place] # (Auto) 0.92 H (0.24-0.36) K/mm3 Eos # (Auto) 0.29 (0.04-0.36) K/mm3 Baso # (Auto) 0.04 (0.01-0.08) K/mm3 Manual Slide Review Abnormal smear Sodium 136 (136-145) mEq/L Potassium 3.5 (3.5-5.1) mEq/L Chloride 102 (98-107) mEq/L Carbon Dioxide 26 (21-32) mEq/L Anion Gap 11.5 (5-15) BUN 5 L (7-18) mg/dL Creatinine 1.0 (0.55-1.02) mg/dL Est Cr Clr Drug Dosing 41.61 mL/min Estimated GFR (MDRD) 55 (>60) mL/min BUN/Creatinine Ratio 5.0 L (14-18) Glucose 432 H (80-115) mg/dL POC Glucose (80-115) mg/dL Hemoglobin A1c 4.50 (4.50-6.20) % Calcium 8.1 L (8.5-10.1) mg/dL Phosphorus 3.0 (2.6-4.7) mg/dL Magnesium 2.0 (1.8-2.4) mg/dl Total Bilirubin 0.4 (0.2-1.0) mg/dL AST 25 (15-37) U/L ALT 23 (14-59) U/L Alkaline Phosphatase 121 H (46-116) U/L Total Protein 5.1 L (6.4-8.2) g/dl Albumin 2.0 L (3.4-5.0) g/dl Globulin 3.1 gm/dL Albumin/Globulin Ratio 0.7 L (1-2) 06/09/20 06/09/20 Range/Units 11:54 15:58 WBC (3.98-10.04) K/mm3 RBC (3.98-5.22) M/mm3 Hgb (11.2-15.7) gm/dl Hct (34.1-44.9) % MCV (79.4-94.8) fl MCH (25.6-32.2) pg MCHC (32.2-35.5) g/dl RDW Std Deviation (36.4-46.3) fL Plt Count (182-369) K/mm3 MPV (9.4-12.3) fl Neut % (Auto) (34.0-71.1) % Lymph % (Auto) (19.3-51.7) % [place] % (Auto) (4.7-12.5) % Eos % (Auto) (0.7-5.8) Baso % (Auto) (0.1-1.2) % Neut # (Auto) (1.56-6.13) K/mm3 Lymph # (Auto) (1.18-3.74) K/mm3 [place] # (Auto) (0.24-0.36) K/mm3 Eos # (Auto) (0.04-0.36) K/mm3 Baso # (Auto) (0.01-0.08) K/mm3 Manual Slide Review Sodium (136-145) mEq/L Potassium (3.5-5.1) mEq/L Chloride (98-107) mEq/L Carbon Dioxide (21-32) mEq/L Anion Gap (5-15) BUN (7-18) mg/dL Creatinine (0.55-1.02) mg/dL Est Cr Clr Drug Dosing mL/min Estimated GFR (MDRD) (>60) mL/min BUN/Creatinine Ratio (14-18) Glucose (80-115) mg/dL POC Glucose 71 L 104 (80-115) mg/dL Hemoglobin A1c (4.50-6.20) % Calcium (8.5-10.1) mg/dL Phosphorus (2.6-4.7) mg/dL Magnesium (1.8-2.4) mg/dl Total Bilirubin (0.2-1.0) mg/dL AST (15-37) U/L ALT (14-59) U/L Alkaline Phosphatase (46-116) U/L Total Protein (6.4-8.2) g/dl Albumin (3.4-5.0) g/dl Globulin gm/dL Albumin/Globulin Ratio (1-2) Med Orders - Current: Current Medications Acetaminophen (Tylenol) 650 mg PO Q4H PRN PRN Reason: Pain (Mild 1-3)/fever Anastrozole (Arimidex) 1 mg PO DAILY [facility] Last Admin: 06/09/20 09:10 Dose: 1 mg Documented by: Apixaban (Eliquis) 5 mg PO BID [facility] Last Admin: 06/09/20 09:10 Dose: 5 mg Documented by: Cyclobenzaprine HCl (Flexeril) 10 mg PO TID PRN PRN Reason: Pain Last Admin: 06/08/20 20:52 Dose: 10 mg Documented by: Dextrose/Water (Dextrose 50% In Water) 50 ml IV ASDIRECTED PRN PRN Reason: Hypoglycemia Docusate Sodium (Colace) 100 mg PO BID [facility] Last Admin: 06/09/20 09:09 Dose: 100 mg Documented by: Fentanyl (Duragesic) 25 mcg TRDERM Q72H [facility] Hydromorphone HCl (Dilaudid) 1 mg IVPUSH Q2H PRN PRN Reason: Pain (severe 7-10) Last Admin: 06/09/20 15:53 Dose: 1 mg Documented by: Lidocaine (Aspercreme 4%) 1 each TOP Q24H [facility] Last Admin: 06/08/20 20:03 Dose: 1 each Documented by: Losartan Potassium (Cozaar) 50 mg PO BID [facility] Last Admin: 06/09/20 09:10 Dose: 50 mg Documented by: Lubiprostone (Amitiza) 24 mcg PO BIDMEALS [facility] Last Admin: 06/09/20 16:59 Dose: 24 mcg Documented by: Melatonin (Melatonin) 9 mg PO BEDTIME PRN PRN Reason: Insomnia Last Admin: 06/08/20 20:54 Dose: 9 mg Documented by: Miscellaneous Information (Remove Patch) 1 ea TRDERM Q72H [facility] Miscellaneous Information (Remove Patch) 1 ea TRDERM Q24H [facility] Last Admin: 06/09/20 09:03 Dose: 1 ea Documented by: Ondansetron HCl (Zofran) 4 mg IV Q4H PRN PRN Reason: Nausea/Vomiting Last Admin: 06/08/20 19:54 Dose: 4 mg Documented by: Oxycodone HCl (Oxycodone) 5 - 10 mg PO Q4H PRN PRN Reason: Pain (moderate 4-6) Last Admin: 06/09/20 18:05 Dose: 5 mg Documented by: Pantoprazole Sodium (Protonix) 40 mg PO ACBREAKFAST [facility] Last Admin: 06/09/20 05:45 Dose: 40 mg Documented by: Polyethylene Glycol (Miralax) 17 gm PO DAILY [facility] Last Admin: 06/09/20 08:50 Dose: 17 gm Documented by: Saccharomyces Boulardii (Florastor) 500 mg PO BID [facility] Last Admin: 06/09/20 09:09 Dose: 500 mg Documented by: Senna (Senna) 17.2 mg PO BEDTIME [facility] Last Admin: 06/08/20 20:53 Dose: 17.2 mg Documented by: Discontinued Medications Bisacodyl (Dulcolax) 5 mg PO ONETIME ONE Stop: 06/07/20 22:31 Last Admin: 06/07/20 22:34 Dose: 5 mg Documented by: Dextrose/Water (Dextrose 50% In Water) 50 ml IV ASDIRECTED PRN PRN Reason: Hypoglycemia Fentanyl (Duragesic) 25 mcg TRDERM Q72H [facility] Last Admin: 06/07/20 20:00 Dose: 25 mcg Documented by: Hydromorphone HCl (Dilaudid) 1 mg IVPUSH ONETIME ONE Stop: 06/07/20 17:06 Last Admin: 06/07/20 17:14 Dose: 1 mg Documented by: Hydromorphone HCl (Dilaudid) 1 mg IVPUSH ONETIME ONE Stop: 06/07/20 19:45 Last Admin: 06/07/20 20:01 Dose: 1 mg Documented by: Dextrose/Lactated Ringer's (Dextrose 5%-Lactated Ringers) 1,000 mls @ 150 mls/hr IV ASDIRECTED [facility] Last Infusion: 06/07/20 20:35 Dose: 100 mls/hr Documented by: Dextrose/Lactated Ringer's (Dextrose 5%-Lactated Ringers) 1,000 mls @ 100 mls/hr IV ASDIRECTED [facility] Last Admin: 06/09/20 04:01 Dose: 100 mls/hr Documented by: Magnesium Sulfate 2 gm/ Premix 50 mls @ 25 mls/hr IV ONETIME ONE Stop: 06/08/20 17:44 Last Admin: 06/08/20 17:33 Dose: Not Given Documented by: Potassium Chloride 10 meq/ (Premix) 100 mls @ 100 mls/hr IV Q1H JEMMA Stop: 06/08/20 18:44 Last Admin: 06/08/20 19:00 Dose: 100 mls/hr Documented by: Influenza Virus Vaccine (Pharmacy To Dose - Influenza Vaccine) 1 each IM ONETI ME ONE Stop: 06/07/20 21:24 Influenza Virus Vaccine (Fluzone High-Dose Quad ) 240 mcg IM .ONCE ONE Stop: 06/07/20 21:31 Insulin Human Lispro (Humalog) 5 unit SUBCUT ONETIME ONE Stop: 06/09/20 08:41 Last Admin: 06/09/20 08:57 Dose: 5 units Documented by: Insulin Human Lispro (Humalog) 0 unit SUBCUT QIDACANDBED [facility]; Protocol Iopamidol (Isovue-300 (61%)) 100 ml IVPUSH ONETIME ONE Stop: 06/07/20 18:56 Last Admin: 06/07/20 19:57 Dose: 100 ml Documented by: Lubiprostone (Amitiza) 24 mcg PO ONETIME ONE Stop: 06/08/20 19:01 Last Admin: 06/08/20 20:57 Dose: Not Given Documented by: Magnesium Hydroxide (Milk Of Magnesia) 30 ml PO ONETIME ONE Stop: 06/08/20 12:16 Last Admin: 06/08/20 12:41 Dose: 30 ml Documented by: Metoclopramide HCl (Reglan) 5 mg IVPUSH ONETIME ONE Stop: 06/07/20 17:06 Last Admin: 06/07/20 17:14 Dose: 5 mg Documented by: Senna (Senna) 17.2 mg PO ONETIME ONE Stop: 06/07/20 22:31 Last Admin: 06/07/20 22:35 Dose: 17.2 mg Documented by: Sodium Chloride (Saline Flush) 10 ml FLUSH ONETIME ONE Stop: 06/07/20 18:56 Last Admin: 06/07/20 19:57 Dose: 10 ml Documented by: - Exam Quality Assessment: No: Supplemental Oxygen General: Alert, Oriented HEENT: Pupils Equal, Mucous Membr. Moist/[place] Neck: Supple Lungs: Clear to Auscultation, Normal Respiratory Effort Cardiovascular: Regular Rate, Regular Rhythm GI/Abdominal Exam: Normal Bowel Sounds, Soft, No Organomegaly, No Abnormal Bruit, Distended, Tender (Diffuse tenderness). No: Guarding, Rigid, Rebound Extremities: Normal Inspection, Normal Range of Motion, Non-Tender, No Pedal Edema, Normal Capillary Refill Skin: Warm, Dry, Intact Psy/Mental Status: Alert, Normal Affect, Normal Mood Sepsis Event Note - Evaluation Sepsis Screening Result: No Definite Risk - Focused Exam Vital Signs: Vital Signs Temp Temp Pulse Pulse Resp BP BP 06/09/20 16:00 98.1 F 88 20 144/86 H 06/09/20 12:00 97.9 F 78 20 148/82 H 06/09/20 09:10 153/80 H 06/09/20 07:54 97.9 F 94 22 H 150/88 H Pulse Ox 06/09/20 16:00 99 06/09/20 12:00 98 06/09/20 09:10 06/09/20 07:54 98 - Problem List & Annotations (1) Malignant ascites SNOMED Code(s): 955445430 Code(s): R18.0 - MALIGNANT ASCITES Status: Acute Current Visit: Yes (2) Adenocarcinoma, colon SNOMED Code(s): 970121893 Code(s): C18.9 - MALIGNANT NEOPLASM OF COLON, UNSPECIFIED Status: Acute Current Visit: Yes (3) Thrombocytosis SNOMED Code(s): 0257450 Code(s): D47.3 - ESSENTIAL (HEMORRHAGIC) THROMBOCYTHEMIA Status: Acute Current Visit: Yes (4) Malignant neoplasm of urinary bladder SNOMED Code(s): 838784684 Code(s): C67.9 - MALIGNANT NEOPLASM OF BLADDER, UNSPECIFIED Status: Acute Current Visit: Yes Qualifiers: Bladder location: trigone Qualified Code(s): C67.0 - Malignant neoplasm of trigone of bladder (5) Portal vein thrombosis SNOMED Code(s): 59232815 Code(s): I81 - PORTAL VEIN THROMBOSIS Status: Acute Current Visit: Yes - Problem List Review Problem List Initiated/Reviewed/Updated: Yes - My Orders Last 24 Hours: My Active Orders 06/08/20 20:00 Lidocaine 4% [Aspercreme 4%] 1 each TOP Q24H 06/08/20 20:28 Heat Therapy [OM.PC] Routine 06/08/20 21:00 Sennosides [Senna] 17.2 mg PO BEDTIME 06/09/20 07:00 Lubiprostone [Amitiza] 24 mcg PO BIDMEALS 06/09/20 08:00 Remove Patch 1 ea TRDERM Q24H 06/09/20 08:32 Dextrose 50% in Water 50 ml IV ASDIRECTED PRN 06/09/20 16:29 Dietary Supplements [RC] TIDMEALS - Plan Plan:: Assessment 06/07/2020 * 70-year-old female with 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 * She was admitted on 05/27/[address] [facility] with metastatic colon cancer s/p colectomy with abdominal pain. Pain continued to worsen and medications were not effective. Her stomach became more distended and full and able to only eat small volumes. Paracentesis done and ascitic fluid was positive for malignancy. She had a laparoscopic cholecystectomy and was unable to move her bowels afterwards. She was given Relistor with large results. She was then discharged. * Patient did have good results with Dilaudid in the emergency department. Also she has been on fentanyl 25 mcg patch for 2 months, but over the last couple of days has been using 212 mcg patches which could be causing the increase in pain secondary to poor absorption. * Patient wants to be a full code and want to continue to fight this cancer. * WBC 7.8, hemoglobin 9.6, ESR 37, CRP 2.0, AST 23, ALT 24, alkaline phosphatase 145, total bilirubin 0.5, estimated GFR greater than 60. * Thrombocytosis * [place] to be secondary to inflammatory response/acute phase reactant * Platelets 494 * Hyponatremia/hypokalemia * Likely secondary to poor oral intake * Sodium 134, potassium 3.4 * Normochromic normocytic anemia * Likely secondary to anemia of chronic disease. Stable from previous/most recent 9.0 * Hemoglobin 9.6 * Hypertension * Presented to the emergency department with blood pressure of 190/86 * Home medications include losartan 50 mg daily * Blood pressure is likely worsened secondary to pain. * Portal vein thrombosis * Patient on Eliquis 5 mg twice daily. 06/08/2020 * Abdominal pain of unknown cause * Stage IV adenocarcinoma of unknown primary but likely colon * Malignant ascites s/p paracentesis 1 week ago * Constipation * Thrombocytosis * Hyponatremia/hypokalemia/normochromic normocytic anemia * Hypertension * Portal vein thrombosis Patient has had no real improvement in both pain and bowel movement. She has been on senna, Dulcolax, milk of magnesia without results. Enema was given today also without results. Patient continues to have significant pain even on fentanyl, oxycodone, and Dilaudid. 06/09/2020 * Abdominal pain of unknown cause * Stage IV adenocarcinoma of unknown primary but likely colon * Malignant ascites s/p paracentesis 1 week ago * Constipation * Thrombocytosis * Hyponatremia/hypokalemia/normochromic normocytic anemia * Hypertension * Portal vein thrombosis Her abdominal pain is better today but she still continues without a bowel movement. She has had very little oral intake and they did report she had some bowel movement after the enema yesterday. We will continue to be patient with her constipation and encouraged her to increase her oral intake. Patient had a blood sugar on her CMP of over 400 this morning. She was given 5 units of insulin and after more investigation it appears they took her blood from her port and I am not sure if she had the fluids off long enough or appropriately flushed. We will check fingerstick blood sugars 4 times daily. Plan * Admit to medical floor for fluids and pain management * Continue on Dilaudid 1 mg IV every 2 hours as needed. * Increase oxycodone to 10 mg every 4 hours as needed pain. * Increase fentanyl patch to 50 mcg * Amitiza 24 mg twice daily for opiate-induced constipation * Encourage oral intake * Stop IV fluids * CBC, CMP, mag, phosphorus tomorrow morning * VTE prophylaxis with Eliquis * CODE STATUS: Full code * Length of stay likely 2 to 3 days.
[2020-06-09] MEDS: Ondansetron 4 MG/2 ML SDV IV PRN (19:36)
[2020-06-09] MEDS ORDERED: fentaNYL 50 MCG/HR Transdermal Patch TRDERM SCH (20:00)
[2020-06-09] MEDS: Sennosides 8.6 MG Tab PO SCH (20:47)
[2020-06-09] MEDS: Cyclobenzaprine 10 MG Tab PO PRN (20:47)
[2020-06-09] MEDS: Melatonin 3 MG Tab PO PRN (20:48)
[2020-06-09] MEDS: Lidocaine 4% 1 each Patch TOP SCH (20:54)
[2020-06-10] MEDS: HYDROmorphone 1 MG/ML Syringe IVPUSH PRN ×5 (00:04→22:33)
[2020-06-10] MEDS: oxyCODONE 5 MG Tab PO PRN ×3 (06:03→21:26)
[2020-06-10] MEDS: Pantoprazole 40 MG Tab.CR PO SCH (06:04)
[2020-06-10] MEDS: Lubiprostone 24 MCG Cap PO SCH ×2 (06:07→20:05)
[2020-06-10] MEDS: Polyethylene Glycol 3350 Powder 17 GM Packet PO SCH (08:29)
[2020-06-10] MEDS: Docusate Sodium 100 MG Cap PO SCH ×2 (08:29→21:07)
[2020-06-10] MEDS: Apixaban 5 MG Tab PO SCH ×2 (08:29→21:08)
[2020-06-10] MEDS: Saccharomyces Boulardii (Probiotic) 250 MG Cap PO SCH ×2 (08:39→21:08)
[2020-06-10] MEDS: Losartan 25 MG Tab PO SCH ×2 (08:39→21:08)
[2020-06-10] MEDS ORDERED: Saccharomyces Boulardii (Probiotic) 250 MG Cap PO ONE (08:45)
[2020-06-10] MEDS ORDERED: Losartan 25 MG Tab PO ONE (08:45)
--- NOTE | 2020-06-10 09:13 | CR ---
PROCEDURE INFORMATION: Exam: XR Chest, 1 View Exam date and time: 06/07/2020 5:45 PM Age: 70 years old Clinical indication: Cough and dyspnea and other: Post op --gallbladder surgery on 05/31/2020; Prior surgery; Surgery date: 3-7 days post-operative TECHNIQUE: Imaging protocol: XR of the chest Views: 1 view. COMPARISON: No relevant prior studies available. FINDINGS: Tubes, catheters and devices: Left-sided Port-A-Cath is in place with the tip in the distal superior vena cava. Lungs: Atelectatic changes noted within the lung bases. Pleural space: Unremarkable. No pleural effusion. No pneumothorax. Heart/Mediastinum: Unremarkable. No cardiomegaly. Diaphragm: There is nonspecific elevation of the left hemidiaphragm. Bones/joints: Unremarkable. Soft tissues: Surgical clips right axilla. IMPRESSION: Atelectatic changes noted within the lung bases. Thank you for allowing us to participate in the care of your patient. Dictated and Authenticated by: Cuong Bartlett DO 06/07/2020 7:05 PM Central Time ([place] & [place]) MICHAEL
--- NOTE | 2020-06-10 09:14 | CR ---
"PROCEDURE INFORMATION: Exam: XR Abdomen, 1 View Exam date and time: 06/07/2020 5:48 PM Age: 70 years old Clinical indication: Other: Diffuse lower abdominal pain; Prior surgery; Surgery date: 3-7 days postoperative; Surgery type: Gallbladder surgery on 05/31/2020. HX of surgery for colon cancer. HX of surgery for adhesions on intestines. ; Patient HX: I attached the prior CT abdomen/pelvis report to the current images. TECHNIQUE: Imaging protocol: XR of the abdomen. Views: Frontal supine view of the abdomen. 1 View. COMPARISON: CT Abdomen Pelvis wo Cont 02/24/2018 10:48 PM FINDINGS: Tubes, catheters and devices: Left ureteral stent is in place. Gastrointestinal tract: The bowel gas pattern is nonobstructive and nonspecific. A small amount of stool is noted throughout the colon. Organs: There has been a cholecystectomy. Vasculature: There are numerous benign phleboliths in the pelvis. Bones/joints: The lumbar spine demonstrates mild degenerative changes at multiple levels. IMPRESSION: 1. Left ureteral stent is in place. 2. The bowel gas pattern is nonobstructive and nonspecific. 3. A small amount of stool is noted throughout the colon. Thank you for allowing us to participate in the care of your patient. Dictated and Authenticated by: Cuong Bartlett DO FRITZ, DARLENE | Final Radiology Report CONFIDENTIALITY STATEMENT This report is intended only for use by the referring physician, and only in accordance with law. If you received this in error, call [phone]. Page 2 of 2 06/07/2020 7:12 PM Central Time ([place] & [place]) MICHAEL"
--- NOTE | 2020-06-10 09:17 | CT ---
"PROCEDURE INFORMATION: Exam: CT Abdomen And Pelvis With Contrast Exam date and time: 06/07/2020 7:00 PM Age: 70 years old Clinical indication: Patient HX: Diffuse severe lower abdominal pain. History of urinary bladder carcinoma identified in 2017. Bcg treatments x 2 in 2017. Recurrent bladder cancer --needs to start chemo again. Offered total cystectomy but refrused. Pigtail stent placed lt ureter about 3 months ago and is to be replaced yearly. History of RT breast cancer in 2016--stge 1. Lt colon polyp resected May 11 of this year --proved to be malignant. Cholecystectomy by laparoscopy may 31. TECHNIQUE: Imaging protocol: Computed tomography of the abdomen and pelvis with intravenous contrast. Contrast material: ISOVUE 300; Contrast volume: 96 ml; Contrast route: INTRAVENOUS (IV); COMPARISON: CT Abdomen Pelvis wo Cont 02/24/2018 10:48 PM FINDINGS: Lungs: Atelectatic changes noted within both lung bases. Liver: There is a diffuse decrease in hepatic parenchymal density, consistent with mild fatty infiltration. Gallbladder and bile ducts: There has been a cholecystectomy. Pancreas: Normal. No ductal dilation. Spleen: Normal. No splenomegaly. Adrenal glands: Normal. No mass. Kidneys and ureters: Left ureteral stent is in place. The right kidney is normal. Mild left hydronephrosis. Stomach and bowel: There is thickening of the lara of the descending colon consistent with mild colitis. Evaluation of the bowel is limited due to lack of contrast. Appendix: No evidence of appendicitis. Intraperitoneal space: There is a small amount of free intraperitoneal fluid present. Vasculature: Unremarkable. No abdominal aortic aneurysm. ELA NOVAK | Final Radiology Report CONFIDENTIALITY STATEMENT This report is intended only for use by the referring physician, and only in accordance with law. If you received this in error, call [phone]. Page 2 of 2 Lymph nodes: Mesenteric lymphadenopathy is present measuring up to 1.3 cm. Mild retroperitoneal lymphadenopathy. Urinary bladder: Mild thickening of the lara of the bladder present. Reproductive: Unremarkable as visualized. Bones/joints: The lumbar spine demonstrates mild degenerative changes at multiple levels. Soft tissues: Soft tissue edematous changes noted bilaterally. IMPRESSION: 1. Left ureteral stent is in place. 2. Mild thickening of the lara of the bladder present. 3. There is thickening of the lara of the descending colon consistent with mild colitis. 4. Mesenteric lymphadenopathy is present measuring up to 1.3 cm. 5. Mild retroperitoneal lymphadenopathy. Thank you for allowing us to participate in the care of your patient. Dictated and Authenticated by: Cuong Bartlett DO 06/07/2020 8:46 PM Central Time ([place] & [place]) MICHAEL"
[2020-06-10] MEDS: Anastrozole 1 MG Tab PO SCH (11:21)
--- NOTE | 2020-06-10 14:13 | US ---
PROCEDURE INFORMATION: Exam: US Abdomen; Limited Exam date and time: 06/10/2020 12:46 PM Age: 70 years old Clinical indication: Condition or disease; Ascites; Prior surgery; Surgery date: <1 month; Surgery type: Gallbladder removal 05/31/20, colon cancer removal 05/11/20 per patient TECHNIQUE: Imaging protocol: US abdomen. Real time ultrasound with image documentation. Limited exam focused on the region of clinical interest. COMPARISON: US Retroperitoneal Comp 02/24/2018 8:20 PM FINDINGS: Intraperitoneal space: There is a small amount of intraperitoneal fluid with fluid identified in the right upper quadrant, right lower quadrant and left lower quadrants. The largest pocket of fluid is in the left lower quadrant measuring 6.4 x 4.0 x 3.2 cm. The fluid in the right upper quadrant/gallbladder fossa region measures 5.5 x 3.4 x 4.8 cm. IMPRESSION: Small amount of intraperitoneal fluid as above. Fluid in the right upper quadrant lies in the region of the gallbladder fossa measuring 5.5 by 4.8 x 3.4 cm. Thank you for allowing us to participate in the care of your patient. Dictated and Authenticated by: Hermilo Rose MD 06/10/2020 3:04 PM Central Time ([place] & [place]) MICHAEL
--- NOTE | 2020-06-10 14:23 | PCM.CONS ---
H&P History of Present Illness - General Date of Service: 06/10/20 Admit Problem/Dx: Admission Diagnosis/Problem Admission Diagnosis/Problem Abdominal pain Source of Information: Patient, Old Records, Provider History Limitations: Reports: No Limitations - History of Present Illness Other HPI/Comments: Mrs. Mendosa is a 70 yo woman seen today for obstipation. She has a reported history of bladder cancer diagnosed in 2017 and colon cancer recently diagnosed on colonoscopy with hemicolectomy about one month ago with Dr. Castorena in [place] and laparoscopic cholecystectomy last week. She says she last passed stool and flatus about a week ago. She denies chronic constipation. She is belching and has vomited a few times since her admission, but not today. She has chronic abdominal pain that has been no worse this past week. A CT scan obtained at the time of admission three days ago shows air throughout the colon and rectum. Plain films today show what appears to be moderate stool burden in the descending colon. The patient is on high dose narcotics. She has had colace, miralax, dulcolax suppository and enema without satisfactory results. On exam, she is in no distress. Abdomen is soft, slightly distended, minimally tender, with healing midline laparotomy and laparoscopic incisions. She has hemorrhoids but no other abnormal findings of digital rectal exam; there is no stool in the rectum. She is not currently being treated with chemotherapy. She is supposed to follow up with Dr. Castorena this week and has plans for adjuvant chemotherapy for her colon cancer. Middle Abdomen Pain Score (Numeric/FACES): 3 - Related Data Allergies/Adverse Reactions: Allergies Allergy/AdvReac Type Severity Reaction Status Date / Time tramadol Allergy Cannot Verified 06/07/20 16:38 Remember morphine AdvReac Other Verified 06/09/20 08:35 oxycodone AdvReac Drowsiness Verified 06/07/20 21:34 Home Medications: Home Meds Anastrozole [Arimidex] 1 mg PO DAILY 02/24/18 [History] Apixaban [Eliquis] 5 mg PO BID 06/07/20 [History] Cyclobenzaprine [Flexeril] 10 mg PO TID PRN 06/07/20 [History] Docusate Sodium [Stool Softener] 100 mg PO BID 06/07/20 [History] Losartan [Cozaar] 50 mg PO BID 06/07/20 [History] Omeprazole 20 mg PO DAILY 06/07/20 [History] Sucralfate 1 gm PO QID 06/07/20 [History] fentaNYL [Duragesic] 25 mcg TD Q72H 06/07/20 [History] polyethylene glycoL 3350 [MiraLAX] 17 gm PO DAILY 06/07/20 [History] Past Medical History HEENT History: Reports: Impaired Vision Other HEENT History: Wear glasses Gastrointestinal History: Reports: Chronic Constipation [employer] History: Reports: 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 Neurological Surgical History: Reports: Discectomy Musculoskeletal Surgical History: Reports: Knee Replacement Other Musculoskeletal Surgeries/Procedures:: shoulder spurs removed to left shoulder. Right elbow surgery. left knee replaced. Neck surgery - spur near spinal cord. Removed 5th toes to bilateral feet (hammer toes) Social & Family History - Tobacco Use Tobacco Use Status *Q: Never Tobacco User Second Hand Smoke Exposure: No - Caffeine Use Caffeine Use: Reports: None - Recreational Drug Use Recreational Drug Use: No - Living Situation & Occupation Living situation: Reports: Occupation: Retired H&P Review of Systems - Review of Systems: Review Of Systems: See Below General: Reports: Fatigue HEENT: Reports: No Symptoms Pulmonary: Reports: No Symptoms Cardiovascular: Reports: No Symptoms Gastrointestinal: Reports: Abdominal Pain, Constipation, Distension, Nausea, Vomiting Musculoskeletal: Reports: No Symptoms Skin: Reports: No Symptoms Psychiatric: Reports: No Symptoms Hematologic/Lymphatic: Reports: No Symptoms Immunologic: Reports: No Symptoms Exam - Exam Exam: See Below - Vital Signs Vital Signs: Last Vital Signs Temp 36.7 C 06/10/20 12:33 Pulse 80 06/10/20 12:33 Resp 14 06/10/20 12:33 BP 139/82 06/10/20 12:33 Pulse Ox 96 06/10/20 12:33 Weight: 55.157 kg - Exam General: Alert, Oriented, Cooperative HEENT: Conjunctiva Clear Neck: Trachea Midline Lungs: Clear to Auscultation, Normal Respiratory Effort Cardiovascular: Regular Rate GI/Abdominal Exam: Soft, Distended, Tender, Other (mild distention and tenderness, with tympany on percussion, healed midline incision and healing lapa roscopic incisions) Rectal (Female) Exam: Normal Rectal Tone, Hemorrhoids, Other (no palpable stool in rectum, no gross blood) Extremities: Normal Inspection Skin: Warm, Dry Neuro Extensive - Mental Status: Alert, Oriented x3 Psychiatric: Normal Mood - Patient Data Lab Results Last 24 hrs: Laboratory Results - last 24 hr 06/09/20 06/09/20 06/10/20 Range/Units 11:54 15:58 05:28 WBC 6.38 (3.98-10.04) K/mm3 RBC 3.23 L (3.98-5.22) M/mm3 Hgb 9.5 L (11.2-15.7) gm/dl Hct 30.4 L (34.1-44.9) % MCV 94.1 (79.4-94.8) fl MCH 29.4 (25.6-32.2) pg MCHC 31.3 L (32.2-35.5) g/dl RDW Std Deviation 52.4 H (36.4-46.3) fL Plt Count 467 H D (182-369) K/mm3 MPV 9.9 (9.4-12.3) fl Neut % (Auto) 76.0 H (34.0-71.1) % Lymph % (Auto) 8.5 L (19.3-51.7) % [place] % (Auto) 11.6 (4.7-12.5) % Eos % (Auto) 3.3 (0.7-5.8) Baso % (Auto) 0.6 (0.1-1.2) % Neut # (Auto) 4.85 (1.56-6.13) K/mm3 Lymph # (Auto) 0.54 L (1.18-3.74) K/mm3 [place] # (Auto) 0.74 H (0.24-0.36) K/mm3 Eos # (Auto) 0.21 (0.04-0.36) K/mm3 Baso # (Auto) 0.04 (0.01-0.08) K/mm3 Manual Slide Review Abnormal smear Sodium (136-145) mEq/L Potassium (3.5-5.1) mEq/L Chloride (98-107) mEq/L Carbon Dioxide (21-32) mEq/L Anion Gap (5-15) BUN (7-18) mg/dL Creatinine (0.55-1.02) mg/dL Est Cr Clr Drug Dosing mL/min Estimated GFR (MDRD) (>60) mL/min BUN/Creatinine Ratio (14-18) Glucose (80-115) mg/dL POC Glucose 71 L 104 (80-115) mg/dL Calcium (8.5-10.1) mg/dL Phosphorus (2.6-4.7) mg/dL Magnesium (1.8-2.4) mg/dl Total Bilirubin (0.2-1.0) mg/dL AST (15-37) U/L ALT (14-59) U/L Alkaline Phosphatase (46-116) U/L Total Protein (6.4-8.2) g/dl Albumin (3.4-5.0) g/dl Globulin gm/dL Albumin/Globulin Ratio (1-2) 06/10/20 Range/Units 05:28 WBC (3.98-10.04) K/mm3 RBC (3.98-5.22) M/mm3 Hgb (11.2-15.7) gm/dl Hct (34.1-44.9) % MCV (79.4-94.8) fl MCH (25.6-32.2) pg MCHC (32.2-35.5) g/dl RDW Std Deviation (36.4-46.3) fL Plt Count (182-369) K/mm3 MPV (9.4-12.3) fl Neut % (Auto) (34.0-71.1) % Lymph % (Auto) (19.3-51.7) % [place] % (Auto) (4.7-12.5) % Eos % (Auto) (0.7-5.8) Baso % (Auto) (0.1-1.2) % Neut # (Auto) (1.56-6.13) K/mm3 Lymph # (Auto) (1.18-3.74) K/mm3 [place] # (Auto) (0.24-0.36) K/mm3 Eos # (Auto) (0.04-0.36) K/mm3 Baso # (Auto) (0.01-0.08) K/mm3 Manual Slide Review Sodium 133 L (136-145) mEq/L Potassium 3.7 (3.5-5.1) mEq/L Chloride 99 (98-107) mEq/L Carbon Dioxide 28 (21-32) mEq/L Anion Gap 9.7 (5-15) BUN 8 (7-18) mg/dL Creatinine 1.0 (0.55-1.02) mg/dL Est Cr Clr Drug Dosing 41.61 mL/min Estimated GFR (MDRD) 55 (>60) mL/min BUN/Creatinine Ratio 8.0 L (14-18) Glucose 106 (80-115) mg/dL POC Glucose (80-115) mg/dL Calcium 8.1 L (8.5-10.1) mg/dL Phosphorus 3.1 (2.6-4.7) mg/dL Magnesium 2.4 (1.8-2.4) mg/dl Total Bilirubin 0.7 (0.2-1.0) mg/dL AST 31 (15-37) U/L ALT 32 (14-59) U/L Alkaline Phosphatase 152 H (46-116) U/L Total Protein 5.9 L (6.4-8.2) g/dl Albumin 2.3 L (3.4-5.0) g/dl Globulin 3.6 gm/dL Albumin/Globulin Ratio 0.6 L (1-2) Result Diagrams: 06/10/20 05:28 06/10/20 05:28 Sepsis Event Note - Evaluation Sepsis Screening Result: No Definite Risk - Focused Exam Vital Signs: Vital Signs Temp Pulse Resp BP Pulse Ox 06/10/20 12:33 36.7 C 80 14 139/82 96 06/10/20 08:39 139/83 06/10/20 08:06 37.1 C 87 16 139/83 92 L 06/10/20 04:54 82 152/85 H 96 06/10/20 04:53 36.6 C 80 18 168/93 H 95 Consult PN Assessment/Plan Procedures: Procedures COMPLETE CBC W/AUTO DIFF WBC (02/24/18) COMPREHEN METABOLIC PANEL (02/24/18) CT ABD & PELV 1/> REGNS (07/07/17) CT ABD & PELVIS W/O CONTRAST (02/24/18) EMERGENCY DEPT VISIT (02/24/18) EMERGENCY DEPT VISIT (12/11/15) HEMOGLOBIN (02/24/18) HYDRATE IV INFUSION ADD-ON (02/24/18) MRI JOINT UPR EXTREM W/O DYE (01/10/19) OFFICE/OUTPATIENT VISIT EST (10/21/17) PROTHROMBIN TIME (02/24/18) ROUTINE VENIPUNCTURE (02/24/18) THER/PROPH/DIAG IV INF INIT (02/24/18) TX/PRO/DX INJ NEW DRUG ADDON (02/24/18) TX/PRO/DX INJ SAME DRUG SHUTTLE REPAIRER (02/24/18) URINALYSIS AUTO W/SCOPE (02/24/18) URINE CULTURE/COLONY COUNT (02/24/18) US EXAM ABDO BACK WALL COMP (02/24/18) Problem List Initiated/Reviewed/Updated: Yes Plan: Patient with active bladder cancer and recent partial colectomy for colon cancer is seen for abdominal pain and obstipation. Exam is reassuring. Imaging is fitting with narcotic bowel with constipation. Patient has now tried stool softeners, laxatives, suppository and enema without much effect. Recommend trial of golytely bowel prep for mechanical relief.
[2020-06-10] MEDS: Bisacodyl 5 MG Tab PO SCH ×2 (14:25→21:07)
[2020-06-10] MEDS: Cyclobenzaprine 10 MG Tab PO PRN (14:26)
--- NOTE | 2020-06-10 14:29 | CR ---
"Addendum created by Hermilo Rose MD on 06/10/2020 3:17 PM Central Time ([place] & [place]): In the clinical indication section, the gallbladder removal date of 05/31/2023 is incorrect. Initial Report created on 06/10/2020 3:01 PM Central Time ([place] & [place]): PROCEDURE INFORMATION: Exam: XR Abdomen, 3 or More Views Exam date and time: 06/10/2020 1:04 PM Age: 70 years old Clinical indication: Abdominal pain; Other: Obstipation; Prior surgery; Surgery date: <1 month; Surgery type: Gall bladder removal 05/31/23, colon cancer removal 05/11/20 per patient TECHNIQUE: Imaging protocol: XR of the abdomen. Views: 3 or more views. COMPARISON: CT Abdomen Pelvis w Cont 06/07/2020 7:00 PM FINDINGS: Tubes, catheters and devices: Left double-J ureteral stent in place. Gastrointestinal tract: Non-specific bowel gas pattern with a few air-fluid levels noted. Intraperitoneal space: Normal. No free air. Vasculature: Multiple pelvic calcifications likely vascular. Bones/joints: Moderate degenerative changes of the lumbosacral spine IMPRESSION: 1. Nonspecific bowel gas pattern. There are few nonspecific air-fluid levels. 2. Left double-J ureteral stent in place. Thank you for allowing us to participate in the care of your patient. Dictated and Authenticated by: Hermilo Rose MD FRITZ, DARLENE | Final Radiology Report CONFIDENTIALITY STATEMENT This report is intended only for use by the referring physician, and only in accordance with law. If you received this in error, call [phone]. Page 2 of 2 06/10/2020 3:01 PM Central Time ([place] & [place]) MICHAEL"
--- NOTE | 2020-06-10 17:06 | PCM.PN ---
- General Info Date of Service: 06/10/20 Admission Dx/Problem (Free Text): Admission Diagnosis/Problem Admission Diagnosis/Problem Abdominal pain Subjective Update: Patient's pain is marginally better. She continues not have a bowel movement and she is no longer passing air. Requested consult from Dr. Christian this morning who completed it. He recommends GoLYTELY for mechanical bowel obstruction. Functional Status: Reports: Pain Controlled - Review of Systems General: Reports: No Symptoms HEENT: Reports: No Symptoms Pulmonary: Reports: No Symptoms Cardiovascular: Reports: No Symptoms Gastrointestinal: Reports: Abdominal Pain, Constipation Musculoskeletal: Reports: No Symptoms Skin: Reports: No Symptoms Psychiatric: Reports: No Symptoms - Patient Data Vitals - Most Recent: Last Vital Signs Temp 98.1 F 06/10/20 15:56 Pulse 85 06/10/20 15:56 Resp 16 06/10/20 15:56 BP 149/77 H 06/10/20 15:56 Pulse Ox 97 06/10/20 15:56 Weight - Most Recent: 121 lb I&O - Last 24 Hours: Intake & Output 06/10/20 06/10/20 06/10/20 06:59 14:59 22:59 Intake Total 600 440 400 Output Total 800 400 500 Balance -200 40 -100 Lab Results Last 24 Hours: Laboratory Results - last 24 hr 06/10/20 06/10/20 Range/Units 05:28 05:28 WBC 6.38 (3.98-10.04) K/mm3 RBC 3.23 L (3.98-5.22) M/mm3 Hgb 9.5 L (11.2-15.7) gm/dl Hct 30.4 L (34.1-44.9) % MCV 94.1 (79.4-94.8) fl MCH 29.4 (25.6-32.2) pg MCHC 31.3 L (32.2-35.5) g/dl RDW Std Deviation 52.4 H (36.4-46.3) fL Plt Count 467 H D (182-369) K/mm3 MPV 9.9 (9.4-12.3) fl Neut % (Auto) 76.0 H (34.0-71.1) % Lymph % (Auto) 8.5 L (19.3-51.7) % Nance % (Auto) 11.6 (4.7-12.5) % Eos % (Auto) 3.3 (0.7-5.8) Baso % (Auto) 0.6 (0.1-1.2) % Neut # (Auto) 4.85 (1.56-6.13) K/mm3 Lymph # (Auto) 0.54 L (1.18-3.74) K/mm3 Nance # (Auto) 0.74 H (0.24-0.36) K/mm3 Eos # (Auto) 0.21 (0.04-0.36) K/mm3 Baso # (Auto) 0.04 (0.01-0.08) K/mm3 Manual Slide Review Abnormal smear Sodium 133 L (136-145) mEq/L Potassium 3.7 (3.5-5.1) mEq/L Chloride 99 (98-107) mEq/L Carbon Dioxide 28 (21-32) mEq/L Anion Gap 9.7 (5-15) BUN 8 (7-18) mg/dL Creatinine 1.0 (0.55-1.02) mg/dL Est Cr Clr Drug Dosing 41.61 mL/min Estimated GFR (MDRD) 55 (>60) mL/min BUN/Creatinine Ratio 8.0 L (14-18) Glucose 106 (80-115) mg/dL Calcium 8.1 L (8.5-10.1) mg/dL Phosphorus 3.1 (2.6-4.7) mg/dL Magnesium 2.4 (1.8-2.4) mg/dl Total Bilirubin 0.7 (0.2-1.0) mg/dL AST 31 (15-37) U/L ALT 32 (14-59) U/L Alkaline Phosphatase 152 H (46-116) U/L Total Protein 5.9 L (6.4-8.2) g/dl Albumin 2.3 L (3.4-5.0) g/dl Globulin 3.6 gm/dL Albumin/Globulin Ratio 0.6 L (1-2) Med Orders - Current: Current Medications Acetaminophen (Tylenol) 650 mg PO Q4H PRN PRN Reason: Pain (Mild 1-3)/fever Anastrozole (Arimidex) 1 mg PO DAILY JEMMA Last Admin: 06/10/20 11:21 Dose: 1 mg Documented by: Apixaban (Eliquis) 5 mg PO BID [facility] Last Admin: 06/10/20 08:29 Dose: 5 mg Documented by: Bisacodyl (Dulcolax) 5 mg PO BID [facility] Last Admin: 06/10/20 14:25 Dose: 5 mg Documented by: Cyclobenzaprine HCl (Flexeril) 10 mg PO TID PRN PRN Reason: Pain Last Admin: 06/10/20 14:26 Dose: 10 mg Documented by: Dextrose/Water (Dextrose 50% In Water) 50 ml IV ASDIRECTED PRN PRN Reason: Hypoglycemia Docusate Sodium (Colace) 100 mg PO BID [facility] Last Admin: 06/10/20 08:29 Dose: 100 mg Documented by: Fentanyl (Duragesic) 50 mcg TRDERM Q72H [facility] Last Admin: 06/09/20 20:52 Dose: 50 mcg Documented by: Hydromorphone HCl (Dilaudid) 1 mg IVPUSH Q2H PRN PRN Reason: Pain (severe 7-10) Last Admin: 06/10/20 12:22 Dose: 1 mg Documented by: Lidocaine (Aspercreme 4%) 1 each TOP Q24H [facility] Last Admin: 06/09/20 20:54 Dose: 1 each Documented by: Losartan Potassium (Cozaar) 50 mg PO BID [facility] Last Admin: 06/10/20 08:39 Dose: 50 mg Documented by: Lubiprostone (Amitiza) 24 mcg PO BIDMEALS [facility] Last Admin: 06/10/20 06:07 Dose: 24 mcg Documented by: Melatonin (Melatonin) 9 mg PO BEDTIME PRN PRN Reason: Insomnia Last Admin: 06/09/20 20:48 Dose: 9 mg Documented by: Miscellaneous Information (Remove Patch) 1 ea TRDERM Q24H [facility] Last Admin: 06/10/20 08:54 Dose: 1 ea Documented by: Miscellaneous Information (Remove Patch) 1 ea TRDERM Q72H [facility] Ondansetron HCl (Zofran) 4 mg IV Q4H PRN PRN Reason: Nausea/Vomiting Last Admin: 06/09/20 19:36 Dose: 4 mg Documented by: Oxycodone HCl (Oxycodone) 5 - 10 mg PO Q4H PRN PRN Reason: Pain (moderate 4-6) Last Admin: 06/10/20 14:26 Dose: 10 mg Documented by: Pantoprazole Sodium (Protonix) 40 mg PO ACBREAKFAST [facility] Last Admin: 06/10/20 06:04 Dose: 40 mg Documented by: Polyethylene Glycol (Miralax) 17 gm PO DAILY [facility] Last Admin: 06/10/20 08:29 Dose: 17 gm Documented by: Saccharomyces Boulardii (Florastor) 500 mg PO BID [facility] Last Admin: 06/10/20 08:39 Dose: 500 mg Documented by: Senna (Senna) 17.2 mg PO BEDTIME [facility] Last Admin: 06/09/20 20:47 Dose: 17.2 mg Documented by: Discontinued Medications Bisacodyl (Dulcolax) 5 mg PO ONETIME ONE Stop: 06/07/20 22:31 Last Admin: 06/07/20 22:34 Dose: 5 mg Documented by: Dextrose/Water (Dextrose 50% In Water) 50 ml IV ASDIRECTED PRN PRN Reason: Hypoglycemia Fentanyl (Duragesic) 25 mcg TRDERM Q72H [facility] Last Admin: 06/07/20 20:00 Dose: 25 mcg Documented by: Fentanyl (Duragesic) 25 mcg TRDERM Q72H [facility] Hydromorphone HCl (Dilaudid) 1 mg IVPUSH ONETIME ONE Stop: 06/07/20 17:06 Last Admin: 06/07/20 17:14 Dose: 1 mg Documented by: Hydromorphone HCl (Dilaudid) 1 mg IVPUSH ONETIME ONE Stop: 06/07/20 19:45 Last Admin: 06/07/20 20:01 Dose: 1 mg Documented by: Dextrose/Lactated Ringer's (Dextrose 5%-Lactated Ringers) 1,000 mls @ 150 mls/hr IV ASDIRECTED [facility] Last Infusion: 06/07/20 20:35 Dose: 100 mls/hr Documented by: Dextrose/Lactated Ringer's (Dextrose 5%-Lactated Ringers) 1,000 mls @ 100 mls/hr IV ASDIRECTED [facility] Last Admin: 06/09/20 04:01 Dose: 100 mls/hr Documented by: Magnesium Sulfate 2 gm/ Premix 50 mls @ 25 mls/hr IV ONETIME ONE Stop: 06/08/20 17:44 Last Admin: 06/08/20 17:33 Dose: Not Given Documented by: Potassium Chloride 10 meq/ (Premix) 100 mls @ 100 mls/hr IV Q1H [facility] Stop: 06/08/20 18:44 Last Admin: 06/08/20 19:00 Dose: 100 mls/hr Documented by: Influenza Virus Vaccine (Pharmacy To Dose - Influenza Vaccine) 1 each IM ONETIME ONE Stop: 06/07/20 21:24 Influenza Virus Vaccine (Fluzone High-Dose Quad 2020-21) 240 mcg IM .ONCE ONE Stop: 06/07/20 21:31 Insulin Human Lispro (Humalog) 5 unit SUBCUT ONETIME ONE Stop: 06/09/20 08:41 Last Admin: 06/09/20 08:57 Dose: 5 units Documented by: Insulin Human Lispro (Humalog) 0 unit SUBCUT QIDACANDBED [facility]; Protocol Last Admin: 06/10/20 03:12 Dose: Not Given Documented by: Iopamidol (Isovue-300 (61%)) 100 ml IVPUSH ONETIME ONE Stop: 06/07/20 18:56 Last Admin: 06/07/20 19:57 Dose: 100 ml Documented by: Losartan Potassium (Cozaar) 25 mg PO ONETIME ONE Stop: 06/10/20 08:46 Last Admin: 06/10/20 11:15 Dose: Not Given Documented by: Lubiprostone (Amitiza) 24 mcg PO ONETIME ONE Stop: 06/08/20 19:01 Last Admin: 06/08/20 20:57 Dose: Not Given Documented by: Magnesium Hydroxide (Milk Of Magnesia) 30 ml PO ONETIME ONE Stop: 06/08/20 12:16 Last Admin: 06/08/20 12:41 Dose: 30 ml Documented by: Metoclopramide HCl (Reglan) 5 mg IVPUSH ONETIME ONE Stop: 06/07/20 17:06 Last Admin: 06/07/20 17:14 Dose: 5 mg Documented by: Miscellaneous Information (Remove Patch) 1 ea TRDERM Q72H [facility] Miscellaneous Information (Remove Patch) 1 ea TRDERM ONETIME ONE Stop: 06/09/20 19:16 Last Admin: 06/09/20 23:13 Dose: 1 ea Documented by: Saccharomyces Boulardii (Florastor) 250 mg PO ONETIME ONE Stop: 06/10/20 08:46 Last Admin: 06/10/20 11:16 Dose: Not Given Documented by: Senna (Senna) 17.2 mg PO ONETIME ONE Stop: 06/07/20 22:31 Last Admin: 06/07/20 22:35 Dose: 17.2 mg Documented by: Sodium Chloride (Saline Flush) 10 ml FLUSH ONETIME ONE Stop: 06/07/20 18:56 Last Admin: 06/07/20 19:57 Dose: 10 ml Documented by: - Exam Quality Assessment: No: Supplemental Oxygen General: Alert, Oriented HEENT: Pupils Equal, Mucous Membr. Moist/[place] Neck: Supple Lungs: Clear to Auscultation, Normal Respiratory Effort Cardiovascular: Regular Rate, Regular Rhythm GI/Abdominal Exam: Normal Bowel Sounds, Soft, No Mass, Tender (Diffuse tenderness throughout but worse in the left upper and lower quadrant) Extremities: Normal Inspection, Normal Range of Motion, No Pedal Edema, Normal Capillary Refill Skin: Warm, Dry, Intact Psy/Mental Status: Alert, Normal Affect, Normal Mood Sepsis Event Note - Evaluation Sepsis Screening Result: No Definite Risk - Focused Exam Vital Signs: Vital Signs Temp Pulse Resp BP Pulse Ox 06/10/20 15:56 98.1 F 85 16 149/77 H 97 06/10/20 12:33 98.1 F 80 14 139/82 96 06/10/20 08:39 139/83 06/10/20 08:06 98.8 F 87 16 139/83 92 L - Problem List & Annotations (1) Malignant ascites SNOMED Code(s): 436857177 Code(s): R18.0 - MALIGNANT ASCITES Status: Acute Current Visit: Yes (2) Adenocarcinoma, colon SNOMED Code(s): 817302375 Code(s): C18.9 - MALIGNANT NEOPLASM OF COLON, UNSPECIFIED Status: Acute Current Visit: Yes (3) Thrombocytosis SNOMED Code(s): 4885680 Code(s): D47.3 - ESSENTIAL (HEMORRHAGIC) THROMBOCYTHEMIA Status: Acute Current Visit: Yes (4) Malignant neoplasm of urinary bladder SNOMED Code(s): 730684770 Code(s): C67.9 - MALIGNANT NEOPLASM OF BLADDER, UNSPECIFIED Status: Acute Current Visit: Yes Qualifiers: Bladder location: trigone Qualified Code(s): C67.0 - Malignant neoplasm of trigone of bladder (5) Portal vein thrombosis SNOMED Code(s): 77719481 Code(s): I81 - PORTAL VEIN THROMBOSIS Status: Acute Current Visit: Yes (6) Obstipation SNOMED Code(s): 619204240 Code(s): K59.00 - CONSTIPATION, UNSPECIFIED Status: Acute Current Visit: Yes - Problem List Review Problem List Initiated/Reviewed/Updated: Yes - My Orders Last 24 Hours: My Active Orders 06/09/20 20:00 fentaNYL [Duragesic] 50 mcg TRDERM Q72H 06/10/20 12:45 bisacodyL [Dulcolax] 5 mg PO BID 06/10/20 Dinner Regular Diet [DIET] 06/12/20 20:00 Remove Patch 1 ea TRDERM Q72H - Plan Plan:: Assessment 06/07/2020 * 70-year-old female with 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 * She was admitted on 05/27/[address] [facility] with metastatic colon cancer s/p colectomy with abdominal pain. Pain continued to worsen and medications were not effective. Her stomach became more distended and full and able to only eat small volumes. Paracentesis done and ascitic fluid was positive for malignancy. She had a laparoscopic cholecystectomy and was unable to move her bowels afterwards. She was given Relistor with large results. She was then discharged. * Patient did have good results with Dilaudid in the emergency department. Also she has been on fentanyl 25 mcg patch for 2 months, but over the last couple of days has been using 212 mcg patches which could be causing the increase in pain secondary to poor absorption. * Patient wants to be a full code and want to continue to fight this cancer. * WBC 7.8, hemoglobin 9.6, ESR 37, CRP 2.0, AST 23, ALT 24, alkaline phosphatase 145, total bilirubin 0.5, estimated GFR greater than 60. * Thrombocytosis * [place] to be secondary to inflammatory response/acute phase reactant * Platelets 494 * Hyponatremia/hypokalemia * Likely secondary to poor oral intake * Sodium 134, potassium 3.4 * Normochromic normocytic anemia * Likely secondary to anemia of chronic disease. Stable from previous/most recent 9.0 * Hemoglobin 9.6 * Hypertension * Presented to the emergency department with blood pressure of 190/86 * Home medications include losartan 50 mg daily * Blood pressure is likely worsened secondary to pain. * Portal vein thrombosis * Patient on Eliquis 5 mg twice daily. 06/08/2020 * Abdominal pain of unknown cause * Stage IV adenocarcinoma of unknown primary but likely colon * Malignant ascites s/p paracentesis 1 week ago * Constipation * Thrombocytosis * Hyponatremia/hypokalemia/normochromic normocytic anemia * Hypertension * Portal vein thrombosis Patient has had no real improvement in both pain and bowel movement. She has been on senna, Dulcolax, milk of magnesia without results. Enema was given today also without results. Patient continues to have significant pain even on fentanyl, oxycodone, and Dilaudid. 06/09/2020 * Abdominal pain of unknown cause * Stage IV adenocarcinoma of unknown primary but likely colon * Malignant ascites s/p paracentesis 1 week ago * Constipation * Thrombocytosis * Hyponatremia/hypokalemia/normochromic normocytic anemia * Hypertension * Portal vein thrombosis Her abdominal pain is better today but she still continues without a bowel movement. She has had very little oral intake and they did report she had some bowel movement after the enema yesterday. We will continue to be patient with her constipation and encouraged her to increase her oral intake. Patient had a blood sugar on her CMP of over 400 this morning. She was given 5 units of insulin and after more investigation it appears they took her blood from her port and I am not sure if she had the fluids off long enough or appropriately flushed. We will check fingerstick blood sugars 4 times daily. 06/10/2020 * Abdominal pain of unknown cause-improved. On fentanyl 50 mcg, increased yesterday * Stage IV adenocarcinoma of unknown primary but likely colon * Malignant ascites s/p paracentesis 1 week ago * Obstipation -new * Thrombocytosis -stable * Hyponatremia/normochromic normocytic anemia-stable * Hypertension-stable * Portal vein thrombosis * Hypoalbuminemiastable She continues to have small improvements in her abdominal pain, but she now is not even passing flatus. Recommendation from surgery is to use GoLYTELY which we will start tonight. Patient continues on fentanyl 50 mcg and oxycodone with improvement. She continues with occasional need of Dilaudid 1 mg. Plan * Admit to medical floor for fluids and pain management * Continue on Dilaudid 1 mg IV every 2 hours as needed. * Continue oxycodone to 10 mg every 4 hours as needed pain. * Continue fentanyl patch to 50 mcg * Amitiza 24 mg twice daily for opiate-induced constipation * Start GoLYTELY * Encourage solid food intake * CBC, CMP, mag, phosphorus tomorrow morning * VTE prophylaxis with Eliquis * CODE STATUS: Full code * Discharge after good bowel movement.
[2020-06-10] MEDS ORDERED: Polyethylene Glycol/Electrolytes 4,000 ML Bottle PO ONE (17:30)
[2020-06-10] MEDS: Ondansetron 4 MG/2 ML SDV IV PRN (17:46)
[2020-06-10] MEDS ORDERED: fentaNYL 25 MCG/HR Transdermal Patch TRDERM SCH (20:00)
[2020-06-10] MEDS ORDERED: LORazepam 0.5 MG Tab PO PRN (20:31)
[2020-06-10] MEDS: Sennosides 8.6 MG Tab PO SCH (21:07)
[2020-06-10] MEDS: Lidocaine 4% 1 each Patch TOP SCH (21:09)
[2020-06-11] MEDS: oxyCODONE 5 MG Tab PO PRN ×2 (03:27→10:13)
[2020-06-11] MEDS: HYDROmorphone 1 MG/ML Syringe IVPUSH PRN ×2 (04:09→08:53)
[2020-06-11] MEDS: Pantoprazole 40 MG Tab.CR PO SCH (05:58)
[2020-06-11] MEDS: Lubiprostone 24 MCG Cap PO SCH (06:00)
[2020-06-11] MEDS: Anastrozole 1 MG Tab PO SCH (08:21)
[2020-06-11] MEDS: Saccharomyces Boulardii (Probiotic) 250 MG Cap PO SCH (08:21)
[2020-06-11] MEDS: Apixaban 5 MG Tab PO SCH (08:21)
[2020-06-11] MEDS: Losartan 25 MG Tab PO SCH (08:22)
[2020-06-11] MEDS: Polyethylene Glycol 3350 Powder 17 GM Packet PO SCH (08:22)
[2020-06-11] MEDS: Docusate Sodium 100 MG Cap PO SCH (08:29)
[2020-06-11] MEDS: Bisacodyl 5 MG Tab PO SCH (08:29)
[2020-06-11 11:46] VITALS: BP 138/79; PULSE 107
--- NOTE | 2020-06-11 19:00 | PCM.DCSUM1 ---
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 Patient states she is still having flatus. She states that she has poor appetite over the last several days and a significant weight loss. Patient is currently on fentanyl 25 mcg/h patch that with increased 2 months ago from the 12.5. Patient had to 12.5 patches left and put those on after discharge from the hospital last week. Patient had a right hemicolectomy with ileocolic anastomosis on 05/10/2020, cystoscopy with stent on 05/28, cholecystectomy on 05/31/2020. Patient also had portal vein thrombosis on 02/06/2020. Acute blood loss anemia on 05/15/2020 and last reported hemoglobin of 9.0. Thrombocytosis which appears to be an acute phase reactant based on her notes from Dr. Joe Luevano MD. She did have a paracentesis last week. In the emergency department she had a white count of 7.8, hemoglobin 9.6, platelet count of 494. Sodium slightly decreased at 134, potassium of 3.4 CT of the abdomen showed left ureteral stent in place, mild thickening of the wall of the bladder present, thickening of the wall of the descending colon consistent with mild colitis, mesenteric lymphadenopathy, retroperitoneal lymphadenopathy, small amount of free intraperitoneal fluid present. Chest x- ray showed atelectatic change within the lung bases. X-ray did demonstrate stool noted throughout the colon with a nonobstructive and nonspecific bowel gas pattern. Patient was given Dilaudid with good pain relief, switch to just 1 patch of fentanyl 25 mcg and admitted for rehydration and pain control. Diagnosis: Stroke: No - Discharge Data Discharge Date: 06/11/20 Discharge Disposition: Home, Self-Care 01 Condition: Good - Referral to Home Health Primary Care Physician: Zac Villatoro MD - Discharge Diagnosis/Problem(s) (1) Malignant ascites SNOMED Code(s): 746162979 ICD Code: R18.0 - MALIGNANT ASCITES Status: Acute (2) Adenocarcinoma, colon SNOMED Code(s): 252286334 ICD Code: C18.9 - MALIGNANT NEOPLASM OF COLON, UNSPECIFIED Status: Acute (3) Thrombocytosis SNOMED Code(s): 0340816 ICD Code: D47.3 - ESSENTIAL (HEMORRHAGIC) THROMBOCYTHEMIA Status: Acute (4) Malignant neoplasm of urinary bladder SNOMED Code(s): 444023564 ICD Code: C67.9 - MALIGNANT NEOPLASM OF BLADDER, UNSPECIFIED Status: Acute Qualifiers: Bladder location: trigone Qualified Code(s): C67.0 - Malignant neoplasm of trigone of bladder (5) Portal vein thrombosis SNOMED Code(s): 99030582 ICD Code: I81 - PORTAL VEIN THROMBOSIS Status: Acute (6) Obstipation SNOMED Code(s): 906650728 ICD Code: K59.00 - CONSTIPATION, UNSPECIFIED Status: Acute - Patient Summary/Data Hospital Course: Assessment 06/07/2020 * 70-year-old female with 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 * She was admitted on 05/27/2020 to [facility] with metastatic colon cancer s/p colectomy with abdominal pain. Pain continued to worsen and medications were not effective. Her stomach became more distended and full and able to only eat small volumes. Paracentesis done and ascitic fluid was positive for malignancy. She had a laparoscopic cholecystectomy and was unable to move her bowels afterwards. She was given Relistor with large results. She was then discharged. * Patient did have good results with Dilaudid in the emergency department. Also she has been on fentanyl 25 mcg patch for 2 months, but over the last couple of days has been using 212 mcg patches which could be causing the increase in pain secondary to poor absorption. * Patient wants to be a full code and want to continue to fight this cancer. * WBC 7.8, hemoglobin 9.6, ESR 37, CRP 2.0, AST 23, ALT 24, alkaline phosphatase 145, total bilirubin 0.5, estimated GFR greater than 60. * Thrombocytosis * Mason to be secondary to inflammatory response/acute phase reactant * Platelets 494 * Hyponatremia/hypokalemia * Likely secondary to poor oral intake * Sodium 134, potassium 3.4 * Normochromic normocytic anemia * Likely secondary to anemia of chronic disease. Stable from previous/most recent 9.0 * Hemoglobin 9.6 * Hypertension * Presented to the emergency department with blood pressure of 190/86 * Home medications include losartan 50 mg daily * Blood pressure is likely worsened secondary to pain. * Portal vein thrombosis * Patient on Eliquis 5 mg twice daily. 06/08/2020 * Abdominal pain of unknown cause * Stage IV adenocarcinoma of unknown primary but likely colon * Malignant ascites s/p paracentesis 1 week ago * Constipation * Thrombocytosis * Hyponatremia/hypokalemia/normochromic normocytic anemia * Hypertension * Portal vein thrombosis Patient has had no real improvement in both pain and bowel movement. She has been on senna, Dulcolax, milk of magnesia without results. Enema was given today also without results. Patient continues to have significant pain even on fentanyl, oxycodone, and Dilaudid. 06/09/2020 * Abdominal pain of unknown cause * Stage IV adenocarcinoma of unknown primary but likely colon * Malignant ascites s/p paracentesis 1 week ago * Constipation * Thrombocytosis * Hyponatremia/hypokalemia/normochromic normocytic anemia * Hypertension * Portal vein thrombosis Her abdominal pain is better today but she still continues without a bowel movement. She has had very little oral intake and they did report she had some bowel movement after the enema yesterday. We will continue to be patient with her constipation and encouraged her to increase her oral intake. Patient had a blood sugar on her CMP of over 400 this morning. She was given 5 units of insulin and after more investigation it appears they took her blood from her port and I am not sure if she had the fluids off long enough or appropriately flushed. We will check fingerstick blood sugars 4 times daily. 06/10/2020 * Abdominal pain of unknown cause-improved. On fentanyl 50 mcg, increased yesterday * Stage IV adenocarcinoma of unknown primary but likely colon * Malignant ascites s/p paracentesis 1 week ago * Obstipation -new * Thrombocytosis -stable * Hyponatremia/normochromic normocytic anemia-stable * Hypertension-stable * Portal vein thrombosis * Hypoalbuminemiastable She continues to have small improvements in her abdominal pain, but she now is not even passing flatus. Recommendation from surgery is to use GoLYTELY which we will start tonight. Patient continues on fentanyl 50 mcg and oxycodone with improvement. She continues with occasional need of Dilaudid 1 mg. * Continue oxycodone to 10 mg every 4 hours as needed pain. * Continue fentanyl patch to 50 mcg * Start GoLYTELY * Encourage solid food intake 05/11/2020 Patient had a bowel movement yesterday. She continues to have pain, but it is more manageable. She will be discharged home on fentanyl patch and oxycodone. - Patient Instructions Diet: Usual Diet as Tolerated Activity: As Tolerated Driving: Do Not Drive Showering/Bathing: May Shower Notify Provider of: Fever, Nausea and/or Vomiting Other/Special Instructions: Follow up with PCP and Dr. Lobato next week. - Discharge Plan *PRESCRIPTION DRUG MONITORING PROGRAM REVIEWED*: Not Applicable *COPY OF PRESCRIPTION DRUG MONITORING REPORT IN PATIENT TARA: Not Applicable Prescriptions/Med Rec: LORazepam [Ativan] 0.5 mg PO BEDTIME PRN #10 tablet PRN Reason: Insomnia fentaNYL [Duragesic] 50 mcg TRDERM Q72H #10 patch oxyCODONE 5 - 10 mg PO Q4H PRN #20 tablet PRN Reason: Pain (Moderate 4-6) Home Medications: Home Meds Anastrozole [Arimidex] 1 mg PO DAILY 02/24/18 [History] Apixaban [Eliquis] 5 mg PO BID 06/07/20 [History] Cyclobenzaprine [Flexeril] 10 mg PO TID PRN 06/07/20 [History] Docusate Sodium [Stool Softener] 100 mg PO BID 06/07/20 [History] Losartan [Cozaar] 50 mg PO BID 06/07/20 [History] Omeprazole 20 mg PO DAILY 06/07/20 [History] polyethylene glycoL 3350 [MiraLAX] 17 gm PO DAILY 06/07/20 [History] Acetaminophen [Tylenol] 650 mg PO Q4H PRN tablet 06/11/20 [Rx] LORazepam [Ativan] 0.5 mg PO BEDTIME PRN #10 tablet 06/11/20 [Rx] fentaNYL [Duragesic] 50 mcg TRDERM Q72H #10 patch 06/11/20 [Rx] oxyCODONE 5 - 10 mg PO Q4H PRN #20 tablet 06/11/20 [Rx] Patient Handouts: Constipation, Adult, [id number], Chronic Constipation, Abdominal Pain, Adult, [id number] Referrals: Zac Villatoro MD [Primary Care Provider] - 06/17/20 1:00 pm (Please follow up with Dr. Villatoro on June 17 at 1:00. ) - Discharge Summary/Plan Comment DC Time >30 min.: Yes Discharge Summary/Plan Comment: Discharge home and follow-up with her primary care provider and oncologist next week. - General Info Date of Service: 06/11/20 Admission Dx/Problem (Free Text: Admission Diagnosis/Problem Admission Diagnosis/Problem Abdominal pain Subjective Update: Patient is. She has had a bowel movement. Appetite is still poor. - Review of Systems General: Reports: No Symptoms HEENT: Reports: No Symptoms Pulmonary: Reports: No Symptoms Cardiovascular: Reports: No Symptoms Gastrointestinal: Reports: Abdominal Pain Neurological: Reports: No Symptoms Psychiatric: Reports: No Symptoms - Patient Data Vitals - Most Recent: Last Vital Signs Temp 97.5 F 06/11/20 11:33 Pulse 107 H 06/11/20 11:33 Resp 20 06/11/20 11:33 BP 138/79 06/11/20 11:33 Pulse Ox 97 06/11/20 11:33 Weight - Most Recent: 120 lb 12.8 oz I&O - Last 24 hours: Intake & Output 06/11/20 06/11/20 06/11/20 06:59 14:59 22:59 Intake Total 200 800 Output Total 400 600 Balance -200 200 Med Orders - Current: Current Medications Discontinued Medications Acetaminophen (Tylenol) 650 mg PO Q4H PRN PRN Reason: Pain (Mild 1-3)/fever Anastrozole (Arimidex) 1 mg PO DAILY [facility] Last Admin: 06/11/20 08:21 Dose: 1 mg Documented by: Apixaban (Eliquis) 5 mg PO BID [facility] Last Admin: 06/11/20 08:21 Dose: 5 mg Documented by: Bisacodyl (Dulcolax) 5 mg PO ONETIME ONE Stop: 06/07/20 22:31 Last Admin: 06/07/20 22:34 Dose: 5 mg Documented by: Bisacodyl (Dulcolax) 5 mg PO BID [facility] Last Admin: 06/11/20 08:29 Dose: Not Given Documented by: Cyclobenzaprine HCl (Flexeril) 10 mg PO TID PRN PRN Reason: Pain Last Admin: 06/10/20 14:26 Dose: 10 mg Documented by: Dextrose/Water (Dextrose 50% In Water) 50 ml IV ASDIRECTED PRN PRN Reason: Hypoglycemia Dextrose/Water (Dextrose 50% In Water) 50 ml IV ASDIRECTED PRN PRN Reason: Hypoglycemia Docusate Sodium (Colace) 100 mg PO BID [facility] Last Admin: 06/11/20 08:29 Dose: Not Given Documented by: Fentanyl (Duragesic) 25 mcg TRDERM Q72H [facility] Last Admin: 06/07/20 20:00 Dose: 25 mcg Documented by: Fentanyl (Duragesic) 25 mcg TRDERM Q72H [facility] Fentanyl (Duragesic) 50 mcg TRDERM Q72H [facility] Last Admin: 06/09/20 20:52 Dose: 50 mcg Documented by: Heparin Sodium (Porcine) (Heparin Lock Flush 100 Units/Ml) 500 units FLUSH ASDIRECTED PRN PRN Reason: Deaccess port Last Admin: 06/11/20 14:05 Dose: 500 units Documented by: Hydromorphone HCl (Dilaudid) 1 mg IVPUSH ONETIME ONE Stop: 06/07/20 17:06 Last Admin: 06/07/20 17:14 Dose: 1 mg Documented by: Hydromorphone HCl (Dilaudid) 1 mg IVPUSH ONETIME ONE Stop: 06/07/20 19:45 Last Admin: 06/07/20 20:01 Dose: 1 mg Documented by: Hydromorphone HCl (Dilaudid) 1 mg IVPUSH Q2H PRN PRN Reason: Pain (severe 7-10) Last Admin: 06/11/20 08:53 Dose: 1 mg Documented by: Dextrose/Lactated Ringer's (Dextrose 5%-Lactated Ringers) 1,000 mls @ 150 mls/hr IV ASDIRECTED [facility] Last Infusion: 06/07/20 20:35 Dose: 100 mls/hr Documented by: Dextrose/Lactated Ringer's (Dextrose 5%-Lactated Ringers) 1,000 mls @ 100 mls/hr IV ASDIRECTED [facility] Last Admin: 06/09/20 04:01 Dose: 100 mls/hr Documented by: Magnesium Sulfate 2 gm/ Premix 50 mls @ 25 mls/hr IV ONETIME ONE Stop: 06/08/20 17:44 Last Admin: 06/08/20 17:33 Dose: Not Given Documented by: Potassium Chloride 10 meq/ (Premix) 100 mls @ 100 mls/hr IV Q1H JEMMA Stop: 06/08/20 18:44 Last Admin: 06/08/20 19:00 Dose: 100 mls/hr Documented by: Influenza Virus Vaccine (Pharmacy To Dose - Influenza Vaccine) 1 each IM ONETIME ONE Stop: 06/07/20 21:24 Influenza Virus Vaccine (Fluzone High-Dose Quad 2020-21) 240 mcg IM .ONCE ONE Stop: 06/07/20 21:31 Insulin Human Lispro (Humalog) 5 unit SUBCUT ONETIME ONE Stop: 06/09/20 08:41 Last Admin: 06/09/20 08:57 Dose: 5 units Documented by: Insulin Human Lispro (Humalog) 0 unit SUBCUT QIDACANDBED [facility]; Protocol Last Admin: 06/10/20 03:12 Dose: Not Given Documented by: Iopamidol (Isovue-300 (61%)) 100 ml IVPUSH ONETIME ONE Stop: 06/07/20 18:56 Last Admin: 06/07/20 19:57 Dose: 100 ml Documented by: Lidocaine (Aspercreme 4%) 1 each TOP Q24H [facility] Last Admin: 06/10/20 21:09 Dose: 1 each Documented by: Lorazepam (Ativan) 0.5 mg PO BEDTIME PRN PRN Reason: Insomnia Last Admin: 06/10/20 21:07 Dose: 0.5 mg Documented by: Losartan Potassium (Cozaar) 50 mg PO BID [facility] Last Admin: 06/11/20 08:22 Dose: 50 mg Documented by: Losartan Potassium (Cozaar) 25 mg PO ONETIME ONE Stop: 06/10/20 08:46 Last Admin: 06/10/20 11:15 Dose: Not Given Documented by: Lubiprostone (Amitiza) 24 mcg PO BIDMEALS [facility] Last Admin: 06/11/20 06:00 Dose: 24 mcg Documented by: Lubiprostone (Amitiza) 24 mcg PO ONETIME ONE Stop: 06/08/20 19:01 Last Admin: 06/08/20 20:57 Dose: Not Given Documented by: Magnesium Hydroxide (Milk Of Magnesia) 30 ml PO ONETIME ONE Stop: 06/08/20 12:16 Last Admin: 06/08/20 12:41 Dose: 30 ml Documented by: Melatonin (Melatonin) 9 mg PO BEDTIME PRN PRN Reason: Insomnia Last Admin: 06/09/20 20:48 Dose: 9 mg Documented by: Metoclopramide HCl (Reglan) 5 mg IVPUSH ONETIME ONE Stop: 06/07/20 17:06 Last Admin: 06/07/20 17:14 Dose: 5 mg Documented by: Miscellaneous Information (Remove Patch) 1 ea TRDERM Q72H JEMMA Miscellaneous Information (Remove Patch) 1 ea TRDERM Q24H [facility] Last Admin: 06/11/20 08:30 Dose: Not Given Documented by: Miscellaneous Information (Remove Patch) 1 ea TRDERM ONETIME ONE Stop: 06/09/20 19:16 Last Admin: 06/09/20 23:13 Dose: 1 ea Documented by: Miscellaneous Information (Remove Patch) 1 ea TRDERM Q72H [facility] Ondansetron HCl (Zofran) 4 mg IV Q4H PRN PRN Reason: Nausea/Vomiting Last Admin: 06/10/20 17:46 Dose: 4 mg Documented by: Oxycodone HCl (Oxycodone) 5 - 10 mg PO Q4H PRN PRN Reason: Pain (moderate 4-6) Last Admin: 06/11/20 10:13 Dose: 10 mg Documented by: Pantoprazole Sodium (Protonix) 40 mg PO ACBREAKFAST [facility] Last Admin: 06/11/20 05:58 Dose: 40 mg Documented by: Polyethylene Glycol (Miralax) 17 gm PO DAILY [facility] Last Admin: 06/11/20 08:22 Dose: 17 gm Documented by: Polyethylene Glycol/Electrolytes (Golytely) 4,000 ml PO ONETIME ONE Stop: 06/10/20 17:31 Last Admin: 06/10/20 18:07 Dose: 1 gallon Documented by: Saccharomyces Boulardii (Florastor) 500 mg PO BID [facility] Last Admin: 06/11/20 08:21 Dose: 500 mg Documented by: Saccharomyces Boulardii (Florastor) 250 mg PO ONETIME ONE Stop: 06/10/20 08:46 Last Admin: 06/10/20 11:16 Dose: Not Given Documented by: Senna (Senna) 17.2 mg PO BEDTIME [facility] Last Admin: 06/10/20 21:07 Dose: 17.2 mg Documented by: Senna (Senna) 17.2 mg PO ONETIME ONE Stop: 06/07/20 22:31 Last Admin: 06/07/20 22:35 Dose: 17.2 mg Documented by: Sodium Chloride (Saline Flush) 10 ml FLUSH ONETIME ONE Stop: 06/07/20 18:56 Last Admin: 06/07/20 19:57 Dose: 10 ml Documented by: - Exam Quality Assessment: Denies: Supplemental Oxygen General: Reports: Alert, Oriented HEENT: Reports: Pupils Equal, Mucous Membr. Moist/[place] Neck: Reports: Supple Lungs: Reports: Clear to Auscultation, Normal Respiratory Effort Cardiovascular: Reports: Regular Rate, Regular Rhythm GI/Abdominal Exam: Normal Bowel Sounds, Soft, Distended, Tender (Diffuse tenderness) Extremities: Normal Inspection, Normal Range of Motion, Non-Tender, No Pedal Edema, Normal Capillary Refill Psy/Mental Status: Reports: Alert, Normal Affect, Normal Mood
== END 2020-06-11 14:50 | disposition home or self-care (01) | DRG 947 ==
LOC: JD.ED 15:56 → JD.MS 20:20
PROVIDERS: ADMIT Family Medicine; ATTEND Family Medicine
DX: R10.32 Left lower quadrant pain (principal); R10.31 Right lower quadrant pain; G89.3 Neoplasm related pain (acute) (chronic); I81 Portal vein thrombosis; R59.1 Generalized enlarged lymph nodes; I50.9 Heart failure, unspecified; C18.9 Malignant neoplasm of colon, unspecified; C50.911 Malignant neoplasm of unspecified site of right female breast; E87.1 Hypo-osmolality and hyponatremia; R18.0 Malignant ascites; D63.0 Anemia in neoplastic disease; Z88.8 Allergy status to other drugs, medicaments and biological substances; Z79.01 Long term (current) use of anticoagulants; K59.09 Other constipation; Z95.828 Presence of other vascular implants and grafts; D47.3 Essential (hemorrhagic) thrombocythemia; Z96.0 Presence of urogenital implants; Z20.828 Contact with and (suspected) exposure to other viral communicable diseases; D63.8 Anemia in other chronic diseases classified elsewhere; H54.7 Unspecified visual loss; Z96.659 Presence of unspecified artificial knee joint; C67.0 Malignant neoplasm of trigone of bladder; E87.6 Hypokalemia; Z79.899 Other long term (current) drug therapy; Z90.49 Acquired absence of other specified parts of digestive tract; Z88.5 Allergy status to narcotic agent; Z85.3 Personal history of malignant neoplasm of breast; Z90.710 Acquired absence of both cervix and uterus
CPT/HCPCS: 36415; 71045; 71045-26; 74018; 74018-26; 74019; 74019-26; 74177; 74177-26; 76705; 76705-26; 80053; 81001; 82962; 82977; 83036; 83690; 83735; 83880; 84100; 85007; 85025; 85027; 85610; 85652; 85730; 86140; 96374; 96375; 96376; 99285; 99285-25; A9270-GY; J1170; J1642; J2405; J2765; J3480; J7121; Q9967; U0002

== ENCOUNTER 2020-06-12 12:24 | Emergency (ER) | payer MEDICARE, BC ==
[2020-06-12 13:05] VITALS: BP 186/89; PULSE 88
[2020-06-12] MEDS ORDERED: HYDROmorphone 1 MG/ML Syringe IVPUSH ONE (15:22)
--- NOTE | 2020-06-12 15:22 | EDM.PDOC ---
ED HPI GENERAL MEDICAL PROBLEM - General Chief Complaint: Abdominal Pain Stated Complaint: BACK/ABDOMINAL PAIN Time Seen by Provider: 06/12/20 15:22 - History of Present Illness INITIAL COMMENTS - FREE TEXT/NARRATIVE: 70-year-old female presents the emergency room with continued abdominal pain. Patient is a new diagnosis of colon cancer. She has had a partial colectomy with anastomosis. However she has this mid back and abdominal pain that is constant. It does not wax and wane and it is severe. The patient is on oxycodone and has fentanyl patch. Patient recently had a PET scan done at [facility] in [place]. Her oncologist is Dr. Luevano patient was recently admitted here for pain control CT evaluation and other imaging studies were unrevealing. This pain has been evaluated at several institutions with nondiagnostic findings. She denies fevers or chills she has some intermittent nausea associated with the pain. She has no burning or frequency with urination she does have a history of constipation currently is not taking anything for constipation. Abdomen Pain Score (Numeric/FACES): 10 - Related Data Allergies Allergy/AdvReac Type Severity Reaction Status Date / Time tramadol Allergy Cannot Verified 06/12/20 13:01 Remember morphine AdvReac Other Verified 06/12/20 13:01 oxycodone AdvReac Drowsiness Verified 06/12/20 13:01 Home Meds: Home Meds Anastrozole [Arimidex] 1 mg PO DAILY 02/24/18 [History] Apixaban [Eliquis] 5 mg PO BID 06/07/20 [History] Cyclobenzaprine [Flexeril] 10 mg PO TID PRN 06/07/20 [History] Docusate Sodium [Stool Softener] 100 mg PO BID 06/07/20 [History] Losartan [Cozaar] 50 mg PO BID 06/07/20 [History] Omeprazole 20 mg PO DAILY 06/07/20 [History] polyethylene glycoL 3350 [MiraLAX] 17 gm PO DAILY 06/07/20 [History] Acetaminophen [Tylenol] 650 mg PO Q4H PRN tablet 06/11/20 [Rx] LORazepam [Ativan] 0.5 mg PO BEDTIME PRN #10 tablet 06/11/20 [Rx] fentaNYL [Duragesic] 50 mcg TRDERM Q72H #10 patch 06/11/20 [Rx] oxyCODONE 5 - 10 mg PO Q4H PRN #20 tablet 06/11/20 [Rx] Past Medical History HEENT History: Reports: Impaired Vision Other HEENT History: Wear glasses Gastrointestinal History: Reports: Chronic Constipation [employer] History: Reports: 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 Neurological Surgical History: Reports: Discectomy Musculoskeletal Surgical History: Reports: Knee Replacement Other Musculoskeletal Surgeries/Procedures:: shoulder spurs removed to left shoulder. Right elbow surgery. left knee replaced. Neck surgery - spur near spinal cord. Removed 5th toes to bilateral feet (hammer toes) Social & Family History - Family History Family Medical History: Noncontributory - Tobacco Use Tobacco Use Status *Q: Former Tobacco User Used Tobacco, but Quit: No - Caffeine Use Caffeine Use: Reports: None - Living Situation & Occupation Living situation: Reports: Occupation: Retired ED ROS GENERAL - Review of Systems Review Of Systems: See Below Constitutional: Reports: Weakness, Fatigue. Denies: Fever, Chills HEENT: Reports: No Symptoms Respiratory: Reports: No Symptoms Cardiovascular: Reports: No Symptoms GI/Abdominal: Reports: Abdominal Pain, Constipation, Nausea. Denies: Diarrhea, Vomiting : Reports: No Symptoms Musculoskeletal: Reports: No Symptoms Skin: Reports: No Symptoms Neurological: Reports: No Symptoms Psychiatric: Reports: Agitation (Mostly from chronic pain), Anxiety ED EXAM, GI/ABD - Physical Exam Exam: See Below Exam Limited By: No Limitations General Appearance: Anxious, Moderate Distress (From the discomfort) Head: Atraumatic, Normocephalic Neck: Normal Inspection, Supple, Non-Tender, Full Range of Motion Respiratory/Chest: No Respiratory Distress, Lungs Clear, Normal Breath Sounds Cardiovascular: Regular Rate, Rhythm, No Edema, No Murmur GI/Abdominal Exam: Normal Bowel Sounds, Soft, Other (Vague discomfort worse in the midline. No rigidity rebound or guarding. Recent incision is healing well) Back Exam: Normal Inspection, Other (No specific findings on back exam however the pain seems to be in the upper lumbar lower thoracic region straight through the middle of her back not aggravated with palpation however). No: CVA Tenderness (L), CVA Tenderness (R), Vertebral Tenderness Extremities: Normal Inspection, No Pedal Edema Neurological: Alert, Oriented Psychiatric: Anxious Skin Exam: Warm, Dry, Intact Course - Vital Signs Last Recorded V/S: Last Vital Signs Temp 36.9 C 06/12/20 13:01 Pulse 88 06/12/20 13:01 Resp 16 06/12/20 13:01 BP 186/89 H 06/12/20 13:01 Pulse Ox 100 06/12/20 13:01 - Orders/Labs/Meds Orders: Active Orders 24 hr Category Date Time Status Abdomen 2V AP Flat Upright [CR] Stat Exams 06/12/20 15:47 Taken CULTURE URINE [RM] Stat Lab 06/12/20 13:55 Received Labs: Laboratory Tests 06/12/20 06/12/20 06/12/20 Range/Units 13:10 13:10 13:10 WBC 7.84 (3.98-10.04) K/mm3 RBC 3.46 L (3.98-5.22) M/mm3 Hgb 10.3 L (11.2-15.7) gm/dl Hct 31.8 L (34.1-44.9) % MCV 91.9 (79.4-94.8) fl MCH 29.8 (25.6-32.2) pg MCHC 32.4 (32.2-35.5) g/dl RDW Std Deviation 49.7 H (36.4-46.3) fL Plt Count 650 H D (182-369) K/mm3 MPV 9.7 (9.4-12.3) fl Neut % (Auto) 84.6 H (34.0-71.1) % Lymph % (Auto) 6.4 L (19.3-51.7) % Fountain % (Auto) 8.0 (4.7-12.5) % Eos % (Auto) 0.3 L (0.7-5.8) Baso % (Auto) 0.4 (0.1-1.2) % Neut # (Auto) 6.64 H (1.56-6.13) K/mm3 Lymph # (Auto) 0.50 L (1.18-3.74) K/mm3 Fountain # (Auto) 0.63 H (0.24-0.36) K/mm3 Eos # (Auto) 0.02 L (0.04-0.36) K/mm3 Baso # (Auto) 0.03 (0.01-0.08) K/mm3 Manual Slide Review Abnormal smear Sodium 130 L (136-145) mEq/L Potassium 4.1 (3.5-5.1) mEq/L Chloride 96 L (98-107) mEq/L Carbon Dioxide 25 (21-32) mEq/L Anion Gap 13.1 (5-15) BUN 8 (7-18) mg/dL Creatinine 1.0 (0.55-1.02) mg/dL Est Cr Clr Drug Dosing 40.63 mL/min Estimated GFR (MDRD) 55 (>60) mL/min BUN/Creatinine Ratio 8.0 L (14-18) Glucose 102 (80-115) mg/dL Calcium 8.3 L (8.5-10.1) mg/dL Total Bilirubin 0.8 (0.2-1.0) mg/dL AST 32 (15-37) U/L ALT 34 (14-59) U/L Alkaline Phosphatase 182 H (46-116) U/L Lactate Dehydrogenase (81-234) U/L Total Protein 7.0 (6.4-8.2) g/dl Albumin 2.8 L (3.4-5.0) g/dl Globulin 4.2 gm/dL Albumin/Globulin Ratio 0.7 L (1-2) Lipase 63 L (73-393) U/L Urine Color (Yellow) Urine Appearance (Clear) Urine pH (5.0-8.0) Ur Specific Melvin (1.005-1.030) Urine Protein (Negative) Urine Glucose (UA) (Negative) Urine Ketones (Negative) Urine Occult Blood (Negative) Urine Nitrite (Negative) Urine Bilirubin (Negative) Urine Urobilinogen (0.2-1.0) Ur Leukocyte Esterase (Negative) Urine RBC (0-5) /hpf Urine WBC (0-5) /hpf Ur Squamous Epith Cells (0-5) /hpf Urine Bacteria (FEW) /hpf Urine Mucus (FEW) /hpf 06/12/20 06/12/20 Range/Units 13:10 13:55 WBC (3.98-10.04) K/mm3 RBC (3.98-5.22) M/mm3 Hgb (11.2-15.7) gm/dl Hct (34.1-44.9) % MCV (79.4-94.8) fl MCH (25.6-32.2) pg MCHC (32.2-35.5) g/dl RDW Std Deviation (36.4-46.3) fL Plt Count (182-369) K/mm3 MPV (9.4-12.3) fl Neut % (Auto) (34.0-71.1) % Lymph % (Auto) (19.3-51.7) % Fountain % (Auto) (4.7-12.5) % Eos % (Auto) (0.7-5.8) Baso % (Auto) (0.1-1.2) % Neut # (Auto) (1.56-6.13) K/mm3 Lymph # (Auto) (1.18-3.74) K/mm3 Fountain # (Auto) (0.24-0.36) K/mm3 Eos # (Auto) (0.04-0.36) K/mm3 Baso # (Auto) (0.01-0.08) K/mm3 Manual Slide Review Sodium (136-145) mEq/L Potassium (3.5-5.1) mEq/L Chloride (98-107) mEq/L Carbon Dioxide (21-32) mEq/L Anion Gap (5-15) BUN (7-18) mg/dL Creatinine (0.55-1.02) mg/dL Est Cr Clr Drug Dosing mL/min Estimated GFR (MDRD) (>60) mL/min BUN/Creatinine Ratio (14-18) Glucose (80-115) mg/dL Calcium (8.5-10.1) mg/dL Total Bilirubin (0.2-1.0) mg/dL AST (15-37) U/L ALT (14-59) U/L Alkaline Phosphatase (46-116) U/L Lactate Dehydrogenase 349 H (81-234) U/L Total Protein (6.4-8.2) g/dl Albumin (3.4-5.0) g/dl Globulin gm/dL Albumin/Globulin Ratio (1-2) Lipase (73-393) U/L Urine Color Yellow (Yellow) Urine Appearance Clear (Clear) Urine pH 7.5 (5.0-8.0) Ur Specific Melvin 1.020 (1.005-1.030) Urine Protein Negative (Negative) Urine Glucose (UA) Negative (Negative) Urine Ketones 2+ H (Negative) Urine Occult Blood 3+ H (Negative) Urine Nitrite Negative (Negative) Urine Bilirubin Negative (Negative) Urine Urobilinogen 1.0 (0.2-1.0) Ur Leukocyte Esterase 3+ H (Negative) Urine RBC 30-40 H (0-5) /hpf Urine WBC 40-50 H (0-5) /hpf Ur Squamous Epith Cells 0-5 (0-5) /hpf Urine Bacteria Few (FEW) /hpf Urine Mucus Few (FEW) /hpf Meds: Medications Discontinued Medications Generic Name Dose Route Start Last Admin Trade Name Freq PRN Reason Stop Dose Admin Hydromorphone HCl 1 mg 06/12/20 15:22 06/12/20 15:29 Dilaudid IVPUSH 06/12/20 15:23 1 mg ONETIME ONE Administration Hydromorphone HCl 0.5 mg 06/12/20 17:28 06/12/20 17:34 Dilaudid IVPUSH 06/12/20 17:29 0.5 mg ONETIME ONE Administration Ondansetron HCl 4 mg 06/12/20 15:26 06/12/20 15:31 Zofran IVPUSH 06/12/20 15:27 4 mg ONETIME ONE Administration Ondansetron HCl Confirm 06/12/20 15:25 06/12/20 17:28 Zofran Administered 06/12/20 15:26 Not Given Dose 4 mg .ROUTE .STK-MED ONE Oxycodone HCl 5 mg 06/12/20 18:37 06/12/20 18:43 Oxycodone PO 06/12/20 18:38 5 mg ONETIME ONE Administration - Re-Assessments/Exams Free Text/Narrative Re-Assessment/Exam: 06/12/20 17:[address] Mccarty on-call for Dr. Hill who agrees with checking for constipation treated if found. She has extensive adenopathy on her PET scan but no bony lesions. And the adenopathy can cause this discomfort as well. 06/12/20 18:38 X-ray examination of her abdomen shows no constipation and no acute changes. This was reviewed with radiology. Urinalysis is probably not suggestive of a urinary tract infection however will check a urine culture she has quite a few of white cells present but she has some hematuria as well leukocyte esterase 3+, nitrates negative she is not really having any significant symptoms from this. Chest med records states she is taking a Duragesic patch 50 mcg daily the patient's sister is convinced this is too strong of her medication makes her loopy. The patient has a smaller patch but did not bring them with her. And oncology told her to use 2 patches every 72 hours. But it is uncertain to me wh at strength these patches are. At this time the patient has no patches on albeit by history she had what started at 10:00 yesterday morning. So at this time I am not sure what strength patch she is using at home over what is going on with this. But is really difficult to control her pain without knowing this is this is probably the cornerstone of her pain management I have informed her to follow directions by the oncologist. Unfortunately the patient does not have a current list of her active medications that she is actually using at home so we are dependent on what her medical records state and at some point she had her Duragesic increased to 50 mcg here but by history this is way too strong for her. Departure - Departure Time of Disposition: 18:46 Disposition: Home, Self-Care 01 Clinical Impression: Abdominal pain, Colon cancer - Discharge Information Instructions: Abdominal Pain, Adult, Colorectal Cancer Referrals: PCP,Not In Area [Primary Care Provider] - Forms: ED Department Discharge Additional Instructions: Return to the emergency room with any questions problems or worsening symptoms. Follow-up with your regular physician or your oncologist later this week. It is essential that the same doctor control your pain. Also you should carry a list of exactly what you are taking because it is it is difficult for us to adjust your medications without knowing for certain what you are taking. Restart your Duragesic patches the smaller ones doubled up as you have been instructed to do. You were telling me the 50 mcg patch is too strong so use the 12 mcg patches 2 of these as soon as you get home and to make sure they stay on. They take about 6 plus hours to fully get with the program. To prevent constipation continue using MiraLAX 1 capful daily Sepsis Event Note (ED) - Evaluation Sepsis Screening Result: No Definite Risk - Focused Exam Vital Signs: Vital Signs Temp Pulse Resp BP Pulse Ox 06/12/20 13:01 36.9 C 88 16 186/89 H 100 - My Orders Last 24 Hours: My Active Orders 06/12/20 13:55 CULTURE URINE [RM] Stat 06/12/20 15:47 Abdomen 2V AP Flat Upright [CR] Stat - Assessment/Plan Last 24 Hours: My Active Orders 06/12/20 13:55 CULTURE URINE [RM] Stat 06/12/20 15:47 Abdomen 2V AP Flat Upright [CR] Stat
[2020-06-12] MEDS ORDERED: Ondansetron 4 MG/2 ML SDV ONE (15:25)
[2020-06-12] MEDS ORDERED: Ondansetron 4 MG/2 ML SDV IVPUSH ONE (15:26)
[2020-06-12] MEDS ORDERED: HYDROmorphone 0.5 MG/0.5 ML Syringe IVPUSH ONE (17:28)
[2020-06-12] MEDS ORDERED: oxyCODONE 5 MG Tab PO ONE (18:37)
--- NOTE | 2020-06-13 09:18 | CR ---
PROCEDURE INFORMATION: Exam: XR Abdomen, 3 or More Views Exam date and time: 06/12/2020 4:02 PM Age: 70 years old Clinical indication: Abdominal pain; Other: And back pain TECHNIQUE: Imaging protocol: XR of the abdomen. Views: 3 or more views. COMPARISON: DX Abdomen 2V AP Flat Upright 06/10/2020 1:04 PM FINDINGS: Gastrointestinal tract: Normal. No bowel dilation. Intraperitoneal space: Normal. No free air. Bones/joints: Unremarkable for age. Left ureteral stent again noted IMPRESSION: No acute findings. Thank you for allowing us to participate in the care of your patient. Dictated and Authenticated by: Vadim Zamora MD 06/12/2020 5:40 PM Central Time ([place] & [place]) MICHAEL
== END 2020-06-12 19:18 | disposition home or self-care (01) ==
LOC: JD.ED 12:24
DX: C18.9 Malignant neoplasm of colon, unspecified (principal); Z88.5 Allergy status to narcotic agent; Z79.01 Long term (current) use of anticoagulants; Z90.710 Acquired absence of both cervix and uterus; Z90.49 Acquired absence of other specified parts of digestive tract; Z87.891 Personal history of nicotine dependence
CPT/HCPCS: 36415; 74019; 80053; 81001; 83615; 83690; 85025; 87086; 96374; 96375; 96376; 99284; A9270; J1170; J2405

== ENCOUNTER 2020-07-08 11:33 | Emergency (ER) | payer MEDICARE, BC ==
[2020-07-08 11:54] VITALS: BP 109/65; PULSE 71
[2020-07-08] MEDS ORDERED: Sodium Chloride 0.9% 10 ML Syringe FLUSH PRN (12:45)
--- NOTE | 2020-07-08 12:58 | EDM.PDOC ---
ED HPI GENERAL MEDICAL PROBLEM - General Chief Complaint: Cardiovascular Problem Stated Complaint: SWOLLEN FEET Time Seen by Provider: 07/08/20 12:32 Source of Information: Reports: Patient, RN Notes Reviewed, Other (family member in room.) History Limitations: Reports: No Limitations - History of Present Illness INITIAL COMMENTS - FREE TEXT/NARRATIVE: Patient is a 70-year-old female who presents to the ED with her friend for the evaluation of her ongoing leg swelling and urinary retention. Patient has a history of bladder cancer and colon cancer. She has required paracentesis from time to time, due to the fluid that accumulates in her stomach. The family member present in the room did demonstrate that they believe her abdomen is a little bit swollen, but was more concerned about the excessive swelling to her legs. She has been less mobile due to this, and is using a walker. The patient has more swelling on her left leg, but she has had a total knee repair to that leg. Family notes that the patient also has not peed in 22 hours, which might be attributing to her swollen abdomen. O2 sats are 96% on room air, respiratory rate of 20 breaths/min, the patient does not seem to be in any respiratory distress due to either findings. Her oncologist is Dr. Holley, Dr. Mixon is her primary care provider in [place], and her general surgeon would be Dr. Castorena. Patient denies any other sick-like symptoms, fever/chills, cough/shortness of breath, nausea/vomiting/diarrhea. The family notes that the patient is not on any sort of diuretics or water pills and was wondering if she should maybe be on some due to the swelling in her legs. She does have a history of mild CHF as well. - Related Data Allergies Allergy/AdvReac Type Severity Reaction Status Date / Time tramadol Allergy Severe Cannot Verified 07/08/20 11:45 Remember morphine AdvReac Severe Other Verified 07/08/20 11:45 oxycodone AdvReac Severe Drowsiness Verified 07/08/20 11:45 Home Meds: Home Meds Anastrozole [Arimidex] 1 mg PO DAILY 02/24/18 [History] Apixaban [Eliquis] 5 mg PO BID 06/07/20 [History] Cyclobenzaprine [Flexeril] 10 mg PO TID PRN 10/30/20 [History] Docusate Sodium [Stool Softener] 100 mg PO BID 06/07/20 [History] Losartan [Cozaar] 50 mg PO BID 06/07/20 [History] Omeprazole 20 mg PO DAILY 06/07/20 [History] polyethylene glycoL 3350 [MiraLAX] 17 gm PO DAILY 06/07/20 [History] Acetaminophen [Tylenol] 650 mg PO Q4H PRN tablet 06/11/20 [Rx] LORazepam [Ativan] 0.5 mg PO BEDTIME PRN #10 tablet 06/11/20 [Rx] fentaNYL [Duragesic] 50 mcg TRDERM Q72H #10 patch 06/11/20 [Rx] oxyCODONE 5 - 10 mg PO Q4H PRN #20 tablet 06/11/20 [Rx] Cefdinir [Omnicef] 300 mg PO BID 7 Days #14 cap 07/08/20 [Rx] Spironolactone [Aldactone] 25 mg PO QAM #30 tab 07/08/20 [Rx] Past Medical History HEENT History: Reports: Impaired Vision Other HEENT History: Wear glasses Gastrointestinal History: Reports: Chronic Constipation 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 Neurological Surgical History: Reports: Discectomy Musculoskeletal Surgical History: Reports: Knee Replacement Other Musculoskeletal Surgeries/Procedures:: shoulder spurs removed to left shoulder. Right elbow surgery. left knee replaced. Neck surgery - spur near spinal cord. Removed 5th toes to bilateral feet (hammer toes) Social & Family History - Family History Family Medical History: No Pertinent Family History - Tobacco Use Tobacco Use Status *Q: Former Tobacco User Used Tobacco, but Quit: Yes Month/Year Tobacco Last Used: 25 - Caffeine Use Caffeine Use: Reports: Coffee - Recreational Drug Use Recreational Drug Use: No - Living Situation & Occupation Living situation: Reports: Occupation: Retired ED ROS GENERAL - Review of Systems Review Of Systems: Comprehensive ROS is negative, except as noted in HPI. ED EXAM, GENERAL - Physical Exam Exam: See Below Exam Limited By: No Limitations General Appearance: Alert, WD/WN, No Apparent Distress Respiratory/Chest: No Respiratory Distress, Lungs Clear, Normal Breath Sounds, No Accessory Muscle Use, Chest Non-Tender Cardiovascular: Normal Peripheral Pulses, Regular Rate, Rhythm, No Murmur Peripheral Pulses: 2+: Radial (L), Radial (R), Dorsalis Pedis (L), Dorsalis Pedis (R) Extremities: Normal Capillary Refill, Pedal Edema (2+ edema to left lower leg, 1+ to right lower leg). No: Leg Pain Neurological: Alert, Oriented, Normal Cognition, No Motor/Sensory Deficits Psychiatric: Normal Affect, Normal Mood Skin Exam: Warm, Dry, Intact, Normal Color, No Rash Course - Vital Signs Last Recorded V/S: Last Vital Signs Temp 97.0 F 07/08/20 11:50 Pulse 71 07/08/20 11:50 Resp 20 07/08/20 11:50 BP 109/65 07/08/20 11:50 Pulse Ox 96 07/08/20 11:50 - Orders/Labs/Meds Orders: Active Orders 24 hr Category Date Time Status Bladder Scan [RC] ASDIRECTED Care 07/08/20 12:45 Ordered Peripheral IV Care [RC] . DIRECTED Care 07/08/20 12:45 Ordered CULTURE URINE [RM] Routine Lab 07/08/20 14:02 Ordered Sodium Chloride 0.9% [Saline Flush] Med 07/08/20 12:45 Ordered 10 ml FLUSH ASDIRECTED PRN Peripheral IV Insertion Adult [OM.PC] Routine Oth 07/08/20 12:45 Ordered Medication Orders Sodium Chloride (Saline Flush) 10 ml FLUSH ASDIRECTED PRN PRN Reason: Keep Vein Open Last Admin: 07/08/20 13:33 Dose: 10 ml Documented by: KAY Labs: Laboratory Tests 07/08/20 07/08/20 07/08/20 Range/Units 12:35 12:35 13:22 WBC 9.86 (3.98-10.04) K/mm3 RBC 3.20 L (3.98-5.22) M/mm3 Hgb 9.7 L (11.2-15.7) gm/dl Hct 28.3 L (34.1-44.9) % MCV 88.4 D (79.4-94.8) fl MCH 30.3 (25.6-32.2) pg MCHC 34.3 (32.2-35.5) g/dl RDW Std Deviation 46.9 H (36.4-46.3) fL Plt Count 421 H D (182-369) K/mm3 MPV 9.6 (9.4-12.3) fl Neut % (Auto) 91.4 H (34.0-71.1) % Lymph % (Auto) 2.3 L (19.3-51.7) % [place] % (Auto) 6.2 (4.7-12.5) % Eos % (Auto) 0.1 L (0.7-5.8) Baso % (Auto) 0.0 L (0.1-1.2) % Neut # (Auto) 9.01 H (1.56-6.13) K/mm3 Lymph # (Auto) 0.23 L (1.18-3.74) K/mm3 [place] # (Auto) 0.61 H (0.24-0.36) K/mm3 Eos # (Auto) 0.01 L (0.04-0.36) K/mm3 Baso # (Auto) 0.00 L (0.01-0.08) K/mm3 Manual Slide Review Abnormal smear Sodium 127 L (136-145) mEq/L Potassium 3.1 L (3.5-5.1) mEq/L Chloride 92 L (98-107) mEq/L Carbon Dioxide 25 (21-32) mEq/L Anion Gap 13.1 (5-15) BUN 33 H D (7-18) mg/dL Creatinine 1.2 H (0.55-1.02) mg/dL Est Cr Clr Drug Dosing 32.23 mL/min Estimated GFR (MDRD) 45 (>60) mL/min BUN/Creatinine Ratio 27.5 H (14-18) Glucose 111 (80-115) mg/dL Calcium 9.1 (8.5-10.1) mg/dL Magnesium 2.0 (1.8-2.4) mg/dl Total Bilirubin 0.7 (0.2-1.0) mg/dL AST 22 (15-37) U/L ALT 31 (14-59) U/L Alkaline Phosphatase 182 H (46-116) U/L Total Protein 6.1 L (6.4-8.2) g/dl Albumin 2.7 L (3.4-5.0) g/dl Globulin 3.4 gm/dL Albumin/Globulin Ratio 0.8 L (1-2) Urine Color Dark yellow (Yellow) Urine Appearance Slt cloudy H (Clear) Urine pH 6.0 (5.0-8.0) Ur Specific [place] 1.025 (1.005-1.030) Urine Protein 2+ H (Negative) Urine Glucose (UA) Negative (Negative) Urine Ketones Negative (Negative) Urine Occult Blood 3+ H (Negative) Urine Nitrite Negative (Negative) Urine Bilirubin 1+ H (Negative) Urine Urobilinogen 0.2 (0.2-1.0) Ur Leukocyte Esterase 1+ H (Negative) Urine RBC >100 H (0-5) /hpf Urine WBC 30-40 H (0-5) /hpf Ur Squamous Epith Cells 0-5 (0-5) /hpf Urine Bacteria Moderate H (FEW) /hpf Urine Mucus Not seen (FEW) /hpf Meds: Medications Generic Name Dose Route Start Last Admin Trade Name Freq PRN Reason Stop Dose Admin Sodium Chloride 10 ml 07/08/20 12:45 07/08/20 13:33 Saline Flush FLUSH 10 ml ASDIRECTED PRN Administration Keep Vein Open - Re-Assessments/Exams Free Text/Narrative Re-Assessment/Exam: 07/08/20 12:58 Patient presents to the ED for with her swollen legs. She is somewhat edematous on her left lower leg, as compared to her right. She is not had any pain into her leg. Have ordered bladder scan, and quick cath urinalysis for evaluation for her acute urinary retention. The patient may benefit from diuretics. Will await labs to see kidney function and electrolyte status and try to go from there. 07/08/20 14:34 The patient's urinary sample is grossly positive for UTI. CBC is essentially within normal limits, she is slightly anemic. Sodium is a little bit low at 127, potassium slightly low at 3.1, creatinine is mildly elevated at 1.2, GFR low at 45. This could be due to the UTI. Low sodium also could be likely due to some increased fluid intake, as the family member states they were trying to get her to pee. We will try to start the patient on Aldactone 25 mg daily and have her follow-up with her regular care provider, sometime within the next week and a half for a recheck of her labs. Departure - Departure Time of Disposition: 14:59 Disposition: Home, Self-Care 01 Condition: Good Clinical Impression: Peripheral edema UTI (urinary tract infection) Qualifiers: Urinary tract infection type: acute cystitis Hematuria presence: with hematuria Qualified Code(s): N30.01 - Acute cystitis with hematuria Prescriptions: Spironolactone [Aldactone] 25 mg PO QAM #30 tab Cefdinir [Omnicef] 300 mg PO BID 7 Days #14 cap Instructions: Urinary Tract Infection, Adult, [id number], Edema, [id number] Referrals: Yamini Mixno MD [Primary Care Provider] - Forms: ED Department Discharge Additional Instructions: You were evaluated in the ER for your leg edema and urinary retention. You will be started on spironolactone for your edema. 1 tablet daily in the morning for your peripheral edema. If you have difficulty swallowing this; you may cut it in half and take 2 times daily instead. Your urinary retention was due to an acute UTI. You will be started on Omnicef, 1 tab 2 times a day for the next 7 days. Your sodium was mildly low, recommend you increase your oral fluid intake of fluids like Gatorade/Powerade/Pedialyte for oral hydration. However generally I would like to see you decrease your fluid intake, so this can help some of your peripheral edema as well. You may elevate the legs a few times a day to help relieve some of the swelling in your legs. You may use Sohail wraps to the area to provide further relief from the swelling. Please schedule an appointment with your regular care provider, sometime within the next week to 10 days for reevaluation of your labs, and to make sure that your potassium is still at a normal level, due to the recent start of the diuretic Aldactone. Please return to the ER at any time if symptoms change or worsen. Sepsis Event Note (ED) - Evaluation Sepsis Screening Result: No Definite Risk - Focused Exam Vital Signs: Vital Signs Temp Pulse Resp BP Pulse Ox 07/08/20 11:50 97.0 F 71 20 109/65 96 - My Orders Last 24 Hours: My Active Orders 07/08/20 12:45 Bladder Scan [RC] ASDIRECTED Peripheral IV Care [RC] . DIRECTED Sodium Chloride 0.9% [Saline Flush] 10 ml FLUSH ASDIRECTED PRN Peripheral IV Insertion Adult [OM.PC] Routine 07/08/20 14:02 CULTURE URINE [RM] Routine - Assessment/Plan Last 24 Hours: My Active Orders 07/08/20 12:45 Bladder Scan [RC] ASDIRECTED Peripheral IV Care [RC] . DIRECTED Sodium Chloride 0.9% [Saline Flush] 10 ml FLUSH ASDIRECTED PRN Peripheral IV Insertion Adult [OM.PC] Routine 07/08/20 14:02 CULTURE URINE [RM] Routine
== END 2020-07-08 15:54 | disposition home or self-care (01) ==
LOC: JD.ED 11:33
DX: N30.01 Acute cystitis with hematuria (principal); R60.0 Localized edema; Z88.5 Allergy status to narcotic agent; Z79.01 Long term (current) use of anticoagulants; Z79.899 Other long term (current) drug therapy; Z87.891 Personal history of nicotine dependence
CPT/HCPCS: 36415; 51798; 80053; 81001; 83735; 85025; 87086; 99283-25; 99284

== ENCOUNTER 2020-07-09 11:40 | Emergency (ER) | payer MEDICARE, BC ==
[2020-07-09] MEDS ORDERED: Sodium Chloride 0.9% 1,000 ML IV SCH (12:00)
--- NOTE | 2020-07-09 12:04 | EDM.PDOC ---
ED HPI GENERAL MEDICAL PROBLEM - General Chief Complaint: Cardiovascular Problem Stated Complaint: [facility] Time Seen by Provider: 07/09/20 11:41 - History of Present Illness INITIAL COMMENTS - FREE TEXT/NARRATIVE: 70-year-old female brought into the emergency room by EMS. She complains of significant weakness speech loss and just not being herself. Patient was seen here yesterday diagnosed with a UTI and at that point family seem to be concerned about the lower extremity edema she was started on cefdinir, and spironolactone. She was sent home but is not improving. Family gives a different history than what was gleaned yesterday they said the patient has been weak and tired and has been speaking very little for the last 7 days. She said decreased appetite and generally just is not doing very well. The patient was brought in by EMS where she was noted to have a pulse of about 200 however when I reviewed the rhythm strips she had a rate of approximately 90 with lots of artifact. The rate was regular. At this time the patient answers few questions, however when she does she answers appropriately. The patient has a significant issue of multiple cancers in the past namely bladder and colon cancer. She does develop ascites at times. - Related Data Allergies Allergy/AdvReac Type Severity Reaction Status Date / Time tramadol Allergy Severe Cannot Verified 07/09/20 11:52 Remember morphine AdvReac Severe Other Verified 07/09/20 11:52 Home Meds: Home Meds Anastrozole [Arimidex] 1 mg PO DAILY 02/24/18 [History] Apixaban [Eliquis] 5 mg PO BID 06/07/20 [History] Cyclobenzaprine [Flexeril] 10 mg PO TID PRN 06/07/20 [History] Docusate Sodium [Stool Softener] 100 mg PO BID 06/07/20 [History] Losartan [Cozaar] 50 mg PO DAILY 06/07/20 [History] Omeprazole 20 mg PO DAILY 06/07/20 [History] polyethylene glycoL 3350 [MiraLAX] 17 gm PO DAILY 06/07/20 [History] Acetaminophen [Tylenol] 650 mg PO Q4H PRN tablet 06/11/20 [Rx] LORazepam [Ativan] 0.5 mg PO BEDTIME PRN #10 tablet 06/11/20 [Rx] fentaNYL [Duragesic] 50 mcg TRDERM Q72H #10 patch 06/11/20 [Rx] oxyCODONE 5 - 10 mg PO Q4H PRN #20 tablet 06/11/20 [Rx] Cefdinir [Omnicef] 300 mg PO BID 7 Days #14 cap 07/08/20 [Rx] Spironolactone [Aldactone] 25 mg PO QAM #30 tab 07/08/20 [Rx] Past Medical History HEENT History: Reports: Impaired Vision Other HEENT History: Wear glasses Gastrointestinal History: Reports: Chronic Constipation 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 Neurological Surgical History: Reports: Discectomy Musculoskeletal Surgical History: Reports: Knee Replacement Other Musculoskeletal Surgeries/Procedures:: shoulder spurs removed to left shoulder. Right elbow surgery. left knee replaced. Neck surgery - spur near spinal cord. Removed 5th toes to bilateral feet (hammer toes) Social & Family History - Family History Family Medical History: No Pertinent Family History - Caffeine Use Caffeine Use: Reports: Coffee - Living Situation & Occupation Living situation: Reports: Occupation: Retired ED ROS GENERAL - Review of Systems Review Of Systems: See Below Constitutional: Reports: Malaise, Weakness, Fatigue HEENT: Reports: No Symptoms Respiratory: Reports: No Symptoms Cardiovascular: Reports: No Symptoms Endocrine: Reports: No Symptoms GI/Abdominal: Reports: Abdominal Pain : Reports: No Symptoms Musculoskeletal: Reports: No Symptoms Skin: Reports: No Symptoms Neurological: Reports: Confusion, Other Psychiatric: Reports: No Symptoms ED EXAM, GENERAL - Physical Exam Exam: See Below Exam Limited By: No Limitations General Appearance: No Apparent Distress, Lethargic Eye Exam: Bilateral Eye: Normal Inspection Ears: Normal External Exam, Normal Canal, Hearing Grossly Normal, Normal TMs Nose: Normal Inspection, Normal Mucosa, No Blood Throat/Mouth: Other (Semi-dry mucosa. No acute changes noted) Neck: Normal Inspection. No: Lymphadenopathy (L), Lymphadenopathy (R) Respiratory/Chest: No Respiratory Distress, Lungs Clear, Normal Breath Sounds Cardiovascular: Regular Rate, Rhythm, No Edema, No Murmur GI/Abdominal: Normal Bowel Sounds, Soft, Other (I do not appreciate much tenderness but she has had some discomfort in this area). No: Guarding, Rigid, Rebound Back Exam: Normal Inspection. No: CVA Tenderness (L), CVA Tenderness (R) Extremities: Pedal Edema (He has loosely applied Sohail wrap to the lower extremities with some indentations from this she has 1+ pitting edema noted) Course - Vital Signs Last Recorded V/S: Last Vital Signs Temp 36.7 C 07/09/20 11:40 Pulse 78 07/09/20 11:40 Resp 24 H 07/09/20 11:40 BP 151/82 H 07/09/20 11:40 Pulse Ox 100 07/09/20 11:40 - Orders/Labs/Meds Orders: Active Orders 24 hr Category Date Time Status CULTURE BLOOD [BC] Stat Lab 07/09/20 12:23 Received CULTURE BLOOD [BC] Stat Lab 07/09/20 12:36 Received Sodium Chloride 0.9% [Normal Saline] 1,000 ml Med 07/09/20 12:00 Active IV ASDIRECTED Blood Culture x2 Reflex Set [OM.PC] Stat Oth 07/09/20 11:57 Ordered Medication Orders Sodium Chloride (Normal Saline) 1,000 mls @ 150 mls/hr IV ASDIRECTED JEMMA Last Admin: 07/09/20 12:37 Dose: 150 mls/hr Documented by: BRENDA Labs: Laboratory Tests 07/09/20 07/09/20 07/09/20 Range/Units 11:45 11:45 12:23 WBC 10.12 H (3.98-10.04) K/mm3 RBC 3.32 L (3.98-5.22) M/mm3 Hgb 10.0 L (11.2-15.7) gm/dl Hct 29.9 L (34.1-44.9) % MCV 90.1 (79.4-94.8) fl MCH 30.1 (25.6-32.2) pg MCHC 33.4 (32.2-35.5) g/dl RDW Std Deviation 47.9 H (36.4-46.3) fL Plt Count 490 H (182-369) K/mm3 MPV 9.5 (9.4-12.3) fl Neut % (Auto) 90.8 H (34.0-71.1) % Lymph % (Auto) 3.1 L (19.3-51.7) % [place] % (Auto) 5.8 (4.7-12.5) % Eos % (Auto) 0.2 L (0.7-5.8) Baso % (Auto) 0.0 L (0.1-1.2) % Neut # (Auto) 9.19 H (1.56-6.13) K/mm3 Lymph # (Auto) 0.31 L (1.18-3.74) K/mm3 [place] # (Auto) 0.59 H (0.24-0.36) K/mm3 Eos # (Auto) 0.02 L (0.04-0.36) K/mm3 Baso # (Auto) 0.00 L (0.01-0.08) K/mm3 Manual Slide Review Normal smear Sodium 127 L (136-145) mEq/L Potassium 3.5 (3.5-5.1) mEq/L Chloride 91 L (98-107) mEq/L Carbon Dioxide 28 (21-32) mEq/L Anion Gap 11.5 (5-15) BUN 30 H (7-18) mg/dL Creatinine 1.1 H (0.55-1.02) mg/dL Est Cr Clr Drug Dosing 36.94 mL/min Estimated GFR (MDRD) 49 (>60) mL/min BUN/Creatinine Ratio 27.3 H (14-18) Glucose 116 H (80-115) mg/dL Lactic Acid (0.4-2.0) mmol/L Calcium 9.2 (8.5-10.1) mg/dL Magnesium 2.0 (1.8-2.4) mg/dl Total Bilirubin 0.8 (0.2-1.0) mg/dL AST 24 (15-37) U/L ALT 30 (14-59) U/L Alkaline Phosphatase 189 H (46-116) U/L Ammonia < 10 L (11-32) umol/L Total Protein 6.1 L (6.4-8.2) g/dl Albumin 2.6 L (3.4-5.0) g/dl Globulin 3.5 gm/dL Albumin/Globulin Ratio 0.7 L (1-2) SARS-CoV-2 RNA ([place]) (NEGATIVE) 07/09/20 07/09/20 Range/Units 12:36 12:55 WBC (3.98-10.04) K/mm3 RBC (3.98-5.22) M/mm3 Hgb (11.2-15.7) gm/dl Hct (34.1-44.9) % MCV (79.4-94.8) fl MCH (25.6-32.2) pg MCHC (32.2-35.5) g/dl RDW Std Deviation (36.4-46.3) fL Plt Count (182-369) K/mm3 MPV (9.4-12.3) fl Neut % (Auto) (34.0-71.1) % Lymph % (Auto) (19.3-51.7) % [place] % (Auto) (4.7-12.5) % Eos % (Auto) (0.7-5.8) Baso % (Auto) (0.1-1.2) % Neut # (Auto) (1.56-6.13) K/mm3 Lymph # (Auto) (1.18-3.74) K/mm3 [place] # (Auto) (0.24-0.36) K/mm3 Eos # (Auto) (0.04-0.36) K/mm3 Baso # (Auto) (0.01-0.08) K/mm3 Manual Slide Review Sodium (136-145) mEq/L Potassium (3.5-5.1) mEq/L Chloride (98-107) mEq/L Carbon Dioxide (21-32) mEq/L Anion Gap (5-15) BUN (7-18) mg/dL Creatinine (0.55-1.02) mg/dL Est Cr Clr Drug Dosing mL/min Estimated GFR (MDRD) (>60) mL/min BUN/Creatinine Ratio (14-18) Glucose (80-115) mg/dL Lactic Acid 1.7 (0.4-2.0) mmol/L Calcium (8.5-10.1) mg/dL Magnesium (1.8-2.4) mg/dl Total Bilirubin (0.2-1.0) mg/dL AST (15-37) U/L ALT (14-59) U/L Alkaline Phosphatase (46-116) U/L Ammonia (11-32) umol/L Total Protein (6.4-8.2) g/dl Albumin (3.4-5.0) g/dl Globulin gm/dL Albumin/Globulin Ratio (1-2) SARS-CoV-2 RNA ([place]) Negative (NEGATIVE) Meds: Medications Generic Name Dose Route Start Last Admin Trade Name Ira PRN Reason Stop Dose Admin Sodium Chloride 1,000 mls @ 150 mls/hr 07/09/20 12:00 07/09/20 12:37 Normal Saline IV 150 mls/hr ASDIRECTED JEMMA Administration - Re-Assessments/Exams Free Text/Narrative Re-Assessment/Exam: 07/09/20 15:18 He is somewhat alarming with a 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 1 call discussed the situation with Dr. Viera, neurosurgeon who reviewed the CT does not believe this is is a surgical lesion however did recommend getting an MRI. 1 call also discussed situation with Dr. Luevano, the patient's oncologist, who believes treatment would be possible chemo or radiation. The case was then discussed with , hospitalist who is kind enough to accept this patient at 1515 our time. He will arrange the MRI and appropriate consultations. Departure - Departure Time of Disposition: 15:21 Disposition: DC/Tfer to [facility] 02 Reason for Transfer *Q: Other Clinical Impression: Brainstem tumor, Altered mental status, Increased weakness when ambulating Referrals: Yamini Mixon MD [Primary Care Provider] - Forms: ED Department Discharge Sepsis Event Note (ED) - Evaluation Sepsis Screening Result: No Definite Risk - Focused Exam Vital Signs: Vital Signs Temp Pulse Resp BP Pulse Ox 07/09/20 11:40 36.7 C 78 24 H 151/82 H 100 - My Orders Last 24 Hours: My Active Orders 07/09/20 11:57 Blood Culture x2 Reflex Set [OM.PC] Stat 07/09/20 12:00 Sodium Chloride 0.9% [Normal Saline] 1,000 ml IV ASDIRECTED 07/09/20 12:23 CULTURE BLOOD [BC] Stat 07/09/20 12:36 CULTURE BLOOD [BC] Stat - Assessment/Plan Last 24 Hours: My Active Orders 07/09/20 11:57 Blood Culture x2 Reflex Set [OM.PC] Stat 07/09/20 12:00 Sodium Chloride 0.9% [Normal Saline] 1,000 ml IV ASDIRECTED 07/09/20 12:23 CULTURE BLOOD [BC] Stat 07/09/20 12:36 CULTURE BLOOD [BC] Stat
--- NOTE | 2020-07-09 13:28 | CT ---
Head CT Technique: Multiple axial sections through the brain were obtained. Comparison: No prior intracranial imaging is available. Findings: Ventricles are moderately dilated. Sulci over the convexities are mildly dilated. Diminished density is noted within the periventricular white matter. There appears to be a mass inferior to the mid brainstem on the left side measuring approximately 1.7 cm. Diminished density is also noted within portions of the left brainstem extending into a portion of the left cerebellar white matter. No evidence of intracranial hemorrhage is seen. Bone window settings were reviewed. No discrete calvarial abnormality is appreciated. Visualized paranasal sinuses and mastoid sinuses show nothing acute. Impression: 1. 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 This most likely is causing dilatation of the ventricular system. 2. Low density within the periventricular white matter as well as within a portion of the left side of the brainstem and extending into the left cerebellar white matter. This most likely is old and due to small vessel ischemic demyelination. 3. No acute intracranial abnormality is otherwise appreciated. Note: Contrast enhanced MRI brain is recommended to further evaluate. Diagnostic code #9
--- NOTE | 2020-07-09 13:33 | CR ---
Chest: Portable view of the chest was obtained. Comparison: Prior chest x-ray of 06/07/20. Findings: Heart and mediastinum: Heart and mediastinum are within normal limits for portable technique. Left-sided central line is seen. Tip of this central line is unchanged and lies near the right atrium and superior vena cava. Upper mediastinum is normal. Lungs and pleura: No acute parenchymal process is seen within either lung. Bony structures: No gross bony abnormality is appreciated. Impression: 1. Findings as noted above. 2. Nothing acute is appreciated on portable chest x-ray. Diagnostic code #2
[2020-07-09 16:21] VITALS: BP 119/83; PULSE 81
== END 2020-07-09 16:03 ==
LOC: SUPCPDRO 11:40 → JD.ED 11:40
DX: D49.6 Neoplasm of unspecified behavior of brain (principal); R41.82 Altered mental status, unspecified; Z79.01 Long term (current) use of anticoagulants; Z88.5 Allergy status to narcotic agent; Z20.828 Contact with and (suspected) exposure to other viral communicable diseases
CPT/HCPCS: 36415; 70450; 71045; 80053; 82140; 83605; 83735; 85025; 87040; 99285; J7030; U0002; 93010